=== PATIENT | female | born 2000 | race Caucasian/White ===

== ENCOUNTER → 2020-03-29 09:56 | Outpatient (BNVA) | payer MEDICAID, SELFPAY | PROVIDERS: Visit Provider Advanced Practice Midwife | DX: Z76.89 Persons encountering health services in other specified circumstances (principal) ==

== ENCOUNTER 2020-04-13 10:24 | Outpatient (REF) | payer MEDICAID, SELFPAY ==
--- NOTE | 2020-04-13 10:29 | US_ITS ---
EXAMINATION: OBSTETRICAL ULTRASOUND, FIRST TRIMESTER HISTORY: 20-year-old at 12.3 weeks of gestation NT screening COMPARISON: 03/10/2020 TECHNIQUE: Real time transabdominal imaging with color and M-mode Doppler. FINDINGS: A single, live IUP CRL of 65.4 mm c/w 13.0wks is noted. Heart Rate: 150 beats per minute. Normal yolk sac seen. NT was 1.4.mm. NB Present The embryo appears sonographically wnl for this GA. Right ovary is within normal limits. Left was not visualized. GESTATIONAL AGE: 1. Established GA: 12.3 wks 2. GA from AUA: 13.0 wks ESTIMATED DATE OF DELIVERY: 1. Established WILLY: 10/23/2020 2. WILLY from [facility]: 10/19/2020 US/US OB 1T nuc measure IMPRESSION: 1. A single live IUP 2. Size equals dates 3. NT of 1.4 mm MFM Consultation: I reviewed the ultrasound findings along with significance of NT measurement. The NT of less than 3mm is generally reassuring. However, the sensitivity for T21 detection is only 60%. I reviewed the availability of serum aneuploidy screening which includes cell-free DNA and placental protein based tests. I discussed the sensitivity, false-positive rate, and other limitations associated with each test. I also reviewed the availability of invasive diagnostic tests that are associated small but definite risk of miscarriage. We also reviewed the differences between screening tests and diagnostic tests. After our discussion, she opted for the First trimester screening that is based on cell-free DNA or non-invasive testing (NIPT). The result will be faxed to your office in approximately 7 days. A follow up at 18 weeks for survey has been scheduled. Thank you very much for this referral. Majority of this visit was spent reviewing her care and counselling her in face to face time: Time spent 20 min.
== END 2020-04-13 10:25 | disposition home or self-care (01) ==
LOC: HO.US 10:24
PROVIDERS: Visit Provider Advanced Practice Midwife
DX: Z36.82 Encounter for antenatal screening for nuchal translucency (principal); Z34.90 Encounter for supervision of normal pregnancy, unspecified, unspecified trimester
CPT/HCPCS: 76813

== ENCOUNTER 2020-04-26 13:10 | Outpatient (REF) | payer MEDICAID, SELFPAY ==
[2020-04-26 14:58] LABS: MANUAL DIFF FLAG NO
[2020-04-26 15:02] LABS: Basophils Percent Auto 0.3 % (0-2); Eosinophils Percent Auto 0.3 % (0-4); Hematocrit 33.4 % (37-47); Hemoglobin 11.2 g/dl (12.0-16.0); Imm Gran Abs Auto 0.04 X10*3/uL (0.00-0.03); Imm Gran Pct Auto 0.5 % (0.0-0.4); Lymphocytes Absolute Auto 1.6 X10*3/uL (1.2-4.9); Lymphocytes Percent Auto 20.5 % (20-40); Mean Corpuscular HGB Conc 33.5 g/dl (31.0-35.0); Mean Corpuscular Hemoglobin 27.1 pg (27.0-33.0); Mean Corpuscular Volume 80.9 fL (80-98); Mean Platelet Volume 11.5 fL (9.4-12.3); Monocytes Absolute Auto 0.4 X10*3/uL (0.1-1.2); Neutrophils Absolute Auto 5.7 X10*3/uL (2.0-8.3); Neutrophils Percent Auto 73.4 % (45-73); Platelet Count 213 X10*3/uL (160-400); Red Blood Count 4.13 X10*6/uL (4.20-5.50); Red Cell Distribution Width 13.3 % (11.0-16.0); White Blood Count 7.8 X10*3/uL (4.8-10.8)
[2020-04-26 15:48] LABS: Thyroid Stimulating Hormone 0.77 uIU/mL (0.32-4.0)
[2020-04-26 15:50] LABS: Amphetamine Screen Urine Not Detected (Not Detect); Barbiturates, Urine Not Detected (Not Detect); Benzodiazepines Screen Urine Not Detected (Not Detect); Cannabinoid Screen Urine POSITIVE (Not Detect); Cocaine Screen Urine Not Detected (Not Detect); Opiate Screen Urine Not Detected (Not Detect); Phencyclidine Screen Urine Not Detected (Not Detect)
[2020-04-27 07:17] LABS: Syphilis Screen Nonreactive (Nonreactive)
[2020-04-27 08:09] LABS: HBsAGNum1 0.26 S/CO (0.00-0.99); Hepatitis B Surface Antigen Negative (Negative); ~HepC Num1 0.06 S/CO (0.00-0.79); ~Hepatitis C Antibody Nonreactive (Nonreactive)
[2020-04-27 08:13] LABS: HIV AB/AG Nonreactive (Nonreactive); HIV Num 1 0.11 S/CO (0.00-0.99)
[2020-04-27 09:42] LABS: Rubella IgG Antibody 1.22 index
[2020-04-27 10:28] LABS: CT PCR DETECTED (Not Detect.); NG PCR NOT DETECTED (Not Detect.)
[2020-04-27 13:03] LABS: BV Int Neg Control Negative (Negative); BV Int Pos Control Positive (Positive)
== END 2020-04-26 13:11 | disposition home or self-care (01) ==
LOC: HO.LAB 13:10
PROVIDERS: Advanced Practice Midwife; Visit Provider Advanced Practice Midwife
DX: Z34.90 Encounter for supervision of normal pregnancy, unspecified, unspecified trimester (principal)
CPT/HCPCS: 36415; 80307; 84443; 85025; 86762; 86780; 86787; 86803; 86850; 86886; 86900; 86901; 87086; 87340; 87389; 87480; 87491; 87510; 87591; 87660; 88142; 90686

== ENCOUNTER → 2020-05-17 13:16 | Outpatient (BNVA) | payer MEDICAID, SELFPAY | PROVIDERS: Visit Provider Advanced Practice Midwife | DX: Z76.89 Persons encountering health services in other specified circumstances (principal) ==

== ENCOUNTER 2020-05-25 10:04 | Outpatient (REF) | payer MEDICAID, SELFPAY ==
--- NOTE | 2020-05-25 10:11 | US_ITS ---
EXAMINATION: US OBSTETRICAL CLINICAL INFORMATION: 20-year-old at 18.3 weeks of gestation Suspected anomaly COMPARISON: 04/13/2020 TECHNIQUE: Real-time transabdominal ultrasound was performed using C1-5 megahertz transducer. FINDINGS: A single, active, fetus is seen in vertex presentation. The placenta is posterior without previa, and the amniotic fluid volume is wnl. MEASUREMENTS: 1. Biparietal Diameter: 4.4 cm; 19.2 wks 2. Occipital Frontal Diameter: 5.97 cm 3. Head Circumference: 16.5 cm; 19.2 wks 4. Abdominal Circumference: 13.5 cm; 19.0 wks 5. Femur Length: 2.74 cm; 18.3 wks 6. Humerus Length: 2.8 cm; 19.0 wks 7. Tibia Length: 2.4 cm; 18.5 wks 8. Ulna Length: 2.5 cm; 19.1 wks 9. Lateral ventricle: 0.6 cm 10. Cerebellum: 1.93 cm; 19.6 wks 11. Cisterna Magna: 0.28 cm 12. Nuchal Fold: 4.2 mm 13. Heart Rate: 149 beats per minute Rt ovary: Normal adnexa Lt ovary: Normal adnexa Cervical length 3.5 cm on T/A. GESTATIONAL AGE: 1. Established GA: 18.3 wks 2. GA from [facility]: 19.0 wks ESTIMATED DATE OF DELIVERY: 1. Established WILLY: 10/23/2020 2. WILLY from [facility]: 10/19/2020 ANATOMY: Suboptimal views of the upper lip, RVOT and ductal arch due to position. The visualized anatomy includes but not limited to: 1. Cranium: Normal 2. Intracranial anatomy: cavum septum pellucidi, lateral ventricles, choroid plexus, cerebellum, posterior fossa, third and fourth ventricles. 3. face: orbits, palate, profile, nasal bone 4. Heart: four-chamber view of the heart, ventricular septum, foramen ovale, pulmonary vein, left outflow tracts, three-vessel view, 3 vessel trachea view, aortic arche, situs.. 5. Diaphragm: Normal 6. Abdominal wall: Normal 7. Cord Insertion: Normal 8. Spine: Cervical, thoracic, lumbar, sacral. 9. Stomach: Normal size and shape 10. Right Kidney: Normal 11. Left Kidney: Normal 12. 3 vessel cord: Normal 13. Upper extremity: Open hands, fifth digit. 14. Lower extremity: Tibia, fibula, bilateral feet. 15. Bladder: Normal 16. Genitalia: Male, patient aware US/US OB /maternal detail IMPRESSION: 1. Single, living, intrauterine with appropriate biometry. 2. The survey was suboptimal due to position as noted. The views of the upper lip, RVOT and ductal arch were suboptimal. No abnormalities were seen in visualized anatomy. DISCUSSION: I reviewed today's ultrasound findings. We discussed the limitations of ultrasound in diagnosing aneuploidy and other congenital abnormalities. I reviewed the differences between screening test and diagnostic test. Amniocentesis was discussed and declined. She was informed that the baseline incidence of congenital abnormalities is approximately 3-5%. Not all these conditions are diagnosable in utero. RECOMMENDATIONS: 1. A follow-up has been scheduled in one week. Thank you for allowing me to participate in her care. Visiting time 25 minutes. Majority of this visit was spent reviewing and discussing her care.
[2020-05-25 13:28] LABS: Alanine Aminotransferase 31 U/L (0-31); Aspartate Amino Transferase 22 U/L (5-31)
== END 2020-05-25 10:05 | disposition home or self-care (01) ==
LOC: HO.US 10:04
PROVIDERS: PCP Internal Medicine; Visit Provider Advanced Practice Midwife
DX: O35.9XX0 Maternal care for (suspected) fetal abnormality and damage, unspecified, not applicable or unspecified (principal)
CPT/HCPCS: 76811; 84450; 84460; 86850; 86886; 86901

== ENCOUNTER 2020-06-01 14:00 | Outpatient (REF) | payer MEDICAID, SELFPAY ==
--- NOTE | 2020-06-01 14:05 | US_ITS ---
EXAMINATION: OBSTETRICAL ULTRASOUND, Follow up HISTORY: 20-year-old at 19.3 weeks of gestation Follow-up anatomy COMPARISON: 05/25/2020 TECHNIQUE: Real time transabdominal imaging with color and M-mode Doppler. PRESENTATION: Breech PLACENTA LOCATION: Posterior without previa AMNIOTIC FLUID: Normal MEASUREMENTS: Biometry was not repeated from last week. 1. Heart Rate: 140 beats per minute Normal views of lateral cerebral ventricle, profile, nose/lips, 4ch view, LVOT, RVOT, and the ductal arch. US/US OB follow up IMPRESSION: 1. Single active fetus 2. Previously limited views of the anatomy were seen as listed above. No abnormalities were noted in visualized anatomy. 3. This completes the survey. I reviewed the limitations of ultrasound in diagnosing aneuploidy and other congenital abnormalities. Amniocentesis was again reviewed and she declined. She was informed that the baseline instance of congenital abnormalities and defects in the general population is approximately 3-5%. Not all these conditions are diagnosable in utero. RECOMMENDATIONS: 1. f/u PRN Thank you very much for this referral.
== END 2020-06-01 14:01 | disposition home or self-care (01) ==
LOC: HO.US 14:00
PROVIDERS: PCP Internal Medicine; Visit Provider Advanced Practice Midwife
DX: O35.9XX0 Maternal care for (suspected) fetal abnormality and damage, unspecified, not applicable or unspecified (principal); Z3A.19 19 weeks gestation of pregnancy
CPT/HCPCS: 76816

== ENCOUNTER 2020-06-14 11:27 | Outpatient (REF) | payer MEDICAID, SELFPAY ==
[2020-06-15 12:55] LABS: BV Int Neg Control Negative (Negative); BV Int Pos Control Positive (Positive)
[2020-06-17 08:12] LABS: C. trachomatis RNA TMA NOT DETECTED (NOT DETECTED); N. gonorrhoeae RNA TMA NOT DETECTED (NOT DETECTED)
== END 2020-06-14 11:28 | disposition home or self-care (01) ==
LOC: HO.LAB 11:27
PROVIDERS: Visit Provider Advanced Practice Midwife
DX: Z34.92 Encounter for supervision of normal pregnancy, unspecified, second trimester (principal)
CPT/HCPCS: 81003; 87480; 87491; 87510; 87591; 87660; 99212

== ENCOUNTER → 2020-07-03 14:02 | Outpatient (BNVA) | payer MEDICAID, SELFPAY | PROVIDERS: PCP Internal Medicine; Visit Provider Surgery | DX: K42.9 Umbilical hernia without obstruction or gangrene (principal) | CPT/HCPCS: 99202 ==

== ENCOUNTER → 2020-07-12 14:36 | Outpatient (BNVA) | payer MEDICAID, SELFPAY | PROVIDERS: PCP Internal Medicine; Visit Provider Advanced Practice Midwife | DX: R10.33 Periumbilical pain (principal); Z34.92 Encounter for supervision of normal pregnancy, unspecified, second trimester | CPT/HCPCS: 81003; 99212 ==

== ENCOUNTER 2020-07-13 13:26 | Outpatient (REF) | payer MEDICAID, SELFPAY ==
--- NOTE | 2020-07-13 13:30 | US_ITS ---
EXAMINATION: OBSTETRICAL ULTRASOUND, Follow up HISTORY: 20-year-old at 25.3 weeks of gestation Size date discrepancy COMPARISON: 06/01/2020 TECHNIQUE: Real time transabdominal imaging with color and M-mode Doppler. PRESENTATION: Vertex PLACENTA LOCATION: Posterior without previa AMNIOTIC FLUID: Normal MEASUREMENTS: 1. Biparietal Diameter: 6.6 cm; 26.5 wks 2. Head Circumference: 24.8 cm; 27.0 wks 3. Abdominal Circumference: 20.8 cm; 25.3 wks 4. Femur Length: 4.27 cm; 25.5 wks 5. Heart Rate: 155 beats per minute WEIGHT: EFW: 836 grams (1 lbs 13 oz) -- 49 %. GESTATIONAL AGE: 1. Established GA: 25.3 wks 2. GA from AUA: 26.2 wks ESTIMATED DATE OF DELIVERY: 1. Established WILLY: 10/23/2020 2. WILLY from [facility]: 10/17/2020 US/US OB follow up IMPRESSION: A single live fetus is in vertex presentation Size equals dates Normal amniotic fluid volume I reviewed the limitations of ultrasound and estimating weights. The EFW is not suggestive of large for gestational age. The fetus is active. Further ultrasound has been scheduled. Thank you very much for this referral.
--- NOTE | 2020-07-13 14:05 | US_ITS ---
EXAMINATION: US ABDOMEN LIMITED CLINICAL INFORMATION: Periumbilical pain.. COMPARISON: None TECHNIQUE: Real-time imaging of the right upper quadrant abdominal viscera. FINDINGS: There is a small periumbilical abdominal wall hernia containing intraperitoneal fat. The hernia neck measures approximately 1.0 cm. US/US abdomen limited IMPRESSION: Small periumbilical abdominal wall hernia approximate 1.0 cm wide containing intraperitoneal fat.
== END 2020-07-13 13:27 | disposition home or self-care (01) ==
LOC: HO.US 13:26
PROVIDERS: Visit Provider Advanced Practice Midwife
DX: R10.33 Periumbilical pain (principal)
CPT/HCPCS: 76705; 76816

== ENCOUNTER 2020-08-02 13:37 | Outpatient (REF) | payer MEDICAID, SELFPAY ==
[2020-08-05 11:41] LABS: C. trachomatis RNA TMA NOT DETECTED (NOT DETECTED); N. gonorrhoeae RNA TMA NOT DETECTED (NOT DETECTED)
== END 2020-08-02 13:38 | disposition home or self-care (01) ==
LOC: HO.LAB 13:37
PROVIDERS: PCP Internal Medicine; Visit Provider Advanced Practice Midwife
DX: O98.813 Other maternal infectious and parasitic diseases complicating pregnancy, third trimester (principal); A74.9 Chlamydial infection, unspecified; O99.323 Drug use complicating pregnancy, third trimester; F12.90 Cannabis use, unspecified, uncomplicated; O99.613 Diseases of the digestive system complicating pregnancy, third trimester; K46.9 Unspecified abdominal hernia without obstruction or gangrene; Z3A.28 28 weeks gestation of pregnancy
CPT/HCPCS: 36415; 81003; 87491; 87591; 99212

== ENCOUNTER 2020-08-16 10:40 | Outpatient (REF) | payer MEDICAID, SELFPAY ==
[2020-08-16 14:10] LABS: Hematocrit 35.8 % (37-47); Hemoglobin 11.5 g/dl (12.0-16.0); Mean Corpuscular HGB Conc 32.1 g/dl (31.0-35.0); Mean Corpuscular Hemoglobin 26.9 pg (27.0-33.0); Mean Corpuscular Volume 83.6 fL (80-98); Mean Platelet Volume 11.5 fL (9.4-12.3); Platelet Count 243 X10*3/uL (160-400); Red Blood Count 4.28 X10*6/uL (4.20-5.50); Red Cell Distribution Width 13.6 % (11.0-16.0); White Blood Count 8.7 X10*3/uL (4.8-10.8)
[2020-08-16 14:19] LABS: Amphetamine Screen Urine Not Detected (Not Detect); Barbiturates, Urine Not Detected (Not Detect); Benzodiazepines Screen Urine Not Detected (Not Detect); Cannabinoid Screen Urine Not Detected (Not Detect); Cocaine Screen Urine Not Detected (Not Detect); Opiate Screen Urine Not Detected (Not Detect); Phencyclidine Screen Urine Not Detected (Not Detect)
[2020-08-16 14:30] LABS: Glucose 1 Hour 78 mg/dL
[2020-08-17 08:08] LABS: HBsAGNum1 0.16 S/CO (0.00-0.99); Hepatitis B Surface Antigen Negative (Negative); ~HepC Num1 0.08 S/CO (0.00-0.79); ~Hepatitis C Antibody Nonreactive (Nonreactive)
[2020-08-17 08:25] LABS: Syphilis Screen Nonreactive (Nonreactive)
[2020-08-17 08:34] LABS: HIV AB/AG Nonreactive (Nonreactive); HIV Num 1 0.07 S/CO (0.00-0.99)
[2020-08-17 12:42] LABS: C. trachomatis RNA TMA NOT DETECTED (NOT DETECTED); N. gonorrhoeae RNA TMA NOT DETECTED (NOT DETECTED)
== END 2020-08-16 10:41 | disposition home or self-care (01) ==
LOC: HO.LAB 10:40
PROVIDERS: Advanced Practice Midwife; Visit Provider Advanced Practice Midwife
DX: O98.813 Other maternal infectious and parasitic diseases complicating pregnancy, third trimester (principal); A74.9 Chlamydial infection, unspecified; O99.323 Drug use complicating pregnancy, third trimester; F12.90 Cannabis use, unspecified, uncomplicated; O99.613 Diseases of the digestive system complicating pregnancy, third trimester; K46.9 Unspecified abdominal hernia without obstruction or gangrene; Z3A.30 30 weeks gestation of pregnancy
CPT/HCPCS: 36415; 80307; 81003; 82951; 85027; 86762; 86780; 86787; 86803; 86850; 86900; 86901; 87086; 87340; 87389; 87491; 87591; 99212

== ENCOUNTER → 2020-08-30 10:27 | Outpatient (BNVA) | payer MEDICAID, SELFPAY | PROVIDERS: Visit Provider Advanced Practice Midwife | DX: Z34.93 Encounter for supervision of normal pregnancy, unspecified, third trimester (principal); Z3A.32 32 weeks gestation of pregnancy | CPT/HCPCS: 81003; 90471; 90715; 99212 ==

== ENCOUNTER 2020-09-14 10:46 | Outpatient (REF) | payer MEDICAID, SELFPAY ==
--- NOTE | ~2020-09-14 | US_ITS ---
EXAMINATION: OBSTETRICAL ULTRASOUND, Follow up HISTORY: 20-year-old at the 34.3 weeks of gestation Size date discrepancy COMPARISON: 07/13/2020 TECHNIQUE: Real time transabdominal imaging with color and M-mode Doppler. PRESENTATION: Vertex PLACENTA LOCATION: Posterior without previa AMNIOTIC FLUID: SURINDER 7.7 cm. MVP 4.5 cm MEASUREMENTS: 1. Biparietal Diameter: 8.7 cm; 35.0 wks 2. Head Circumference: 31.7 cm; 35.5 wks 3. Abdominal Circumference: 27.6 cm; 31.5 wks 4. Femur Length: 6.4 cm; 32.6 wks 5. Heart Rate: 133 beats per minute WEIGHT: EFW: 2031 grams (4 lbs 8 oz) -- 8 %. BIOPHYSICAL PROFILE: Motion: 2 Tone: 2 Breathin Amniotic Fluid: 2 Total score: 8/8 Doppler: UA s/d 3.1 GESTATIONAL AGE: 1. Established GA: 34.3 wks 2. GA from AUA: 33.6 wks ESTIMATED DATE OF DELIVERY: 1. Established WILLY: 10/23/2020 2. WILLY from [facility]: 10/27/2020 US/US OB velocimetry umbilcal art IMPRESSION: 1. A single active fetus is in vertex presentation. 2. Size less than dates, EFW corresponds to 8th percentile. 3. BPP 8 out of 8 with normal amniotic fluid volume 4. Umbilical Doppler showed SD ratio of 3.1 I reviewed the limitations of ultrasound in estimating weight. The majority of the fetuses whose EFW falls below 10th percentile are appropriately grown but constitutionally small fetuses. Approximately 30-40% of these fetuses may be experiencing placental insufficiency and are not growing to their full genetic potential. Often it is difficult to distinguish the two in utero. The testing parameters are reassuring today. I recommended weekly biophysical profile and Doppler evaluation with a repeat interval growth in 2 weeks. In addition we should begin weekly NST. Thank you very much for this referral. Total time 30 minutes. The time spent was devoted to counseling the patient about the disease and diagnosis, coordinating care including reviewing her records, pertinent lab data and studies, as well as discussing diagnostic evaluation and workup, plan therapeutic interventions and future disposition of care. This includes any additional research needed to obtain further information in formulating the plan of care of this patient. This note was generated with a voice recognition program. Please excuse any errors which may have been overlooked during my review of this note. Sometimes these errors may affect the content or meaning of a given sentence.
== END 2020-09-14 10:47 | disposition home or self-care (01) ==
LOC: HO.US 10:46
PROVIDERS: Visit Provider Advanced Practice Midwife
DX: O09.299 Supervision of pregnancy with other poor reproductive or obstetric history, unspecified trimester (principal)
CPT/HCPCS: 76816; 76820

== ENCOUNTER 2020-09-21 14:22 | Outpatient (REF) | payer MEDICAID, SELFPAY ==
--- NOTE | ~2020-09-21 | US_ITS ---
EXAMINATION: US OBSTETRICAL (BIOPHYSICAL PROFILE) CLINICAL INFORMATION: 20-year-old at 35.3 weeks of gestation Size less than dates COMPARISON: 09/14/2020 TECHNIQUE: Biophysical profile is performed over 30 minutes with assessment of breathing, gross body movement, tone, and qualitative amniotic fluid volume. FINDINGS: POSITION: Cephalic PLACENTA: Posterior without previa AMNIOTIC FLUID INDEX: 11.5 cm CARDIAC ACTIVITY: 163 beats per minute BIOPHYSICAL PROFILE: Motion: 2 Tone: 2 Breathin Amniotic Fluid: 2 The total biophysical score is 8/8 Umbilical artery Doppler showed normal SD ratio of 2.6. US/US OB biophysical profile IMPRESSION: 1. Single intrauterine gestation in vertex position. 2. Reassuring BPP and SURINDER 3. Normal SD ratio and umbilical artery Thank you for allowing me to participate in her care. She has a follow-up in one week for repeat growth and the testing. This note was generated with a voice recognition program. Please excuse any errors which may have been overlooked during my review of this note. Sometimes these errors may affect the content or meaning of a given sentence.
--- NOTE | ~2020-09-21 | US_ITS ---
EXAMINATION: US OBSTETRICAL (BIOPHYSICAL PROFILE) CLINICAL INFORMATION: 20-year-old at 35.3 weeks of gestation Size less than dates COMPARISON: 09/14/2020 TECHNIQUE: Biophysical profile is performed over 30 minutes with assessment of breathing, gross body movement, tone, and qualitative amniotic fluid volume. FINDINGS: POSITION: Cephalic PLACENTA: Posterior without previa AMNIOTIC FLUID INDEX: 11.5 cm CARDIAC ACTIVITY: 163 beats per minute BIOPHYSICAL PROFILE: Motion: 2 Tone: 2 Breathin Amniotic Fluid: 2 The total biophysical score is 8/8 Umbilical artery Doppler showed normal SD ratio of 2.6. US/US OB velocimetry umbilical ar IMPRESSION: 1. Single intrauterine gestation in vertex position. 2. Reassuring BPP and SURINDER 3. Normal SD ratio and umbilical artery Thank you for allowing me to participate in her care. She has a follow-up in one week for repeat growth and the testing. This note was generated with a voice recognition program. Please excuse any errors which may have been overlooked during my review of this note. Sometimes these errors may affect the content or meaning of a given sentence.
== END 2020-09-21 14:23 | disposition home or self-care (01) ==
LOC: HO.US 14:22
PROVIDERS: Visit Provider Advanced Practice Midwife
DX: O26.843 Uterine size-date discrepancy, third trimester (principal); O35.9XX0 Maternal care for (suspected) fetal abnormality and damage, unspecified, not applicable or unspecified; Z3A.35 35 weeks gestation of pregnancy
CPT/HCPCS: 76819; 76820

== ENCOUNTER → 2020-09-24 14:10 | Outpatient (BNVA) | payer MEDICAID, SELFPAY | PROVIDERS: Visit Provider Advanced Practice Midwife | DX: O36.5990 Maternal care for other known or suspected poor fetal growth, unspecified trimester, not applicable or unspecified (principal); Z3A.35 35 weeks gestation of pregnancy | CPT/HCPCS: 59025; 81003; 99212 ==

== ENCOUNTER 2020-09-28 10:46 | Outpatient (REF) | payer MEDICAID, SELFPAY ==
--- NOTE | ~2020-09-28 | US_ITS ---
EXAMINATION: OBSTETRICAL ULTRASOUND, Follow up HISTORY: 20-year-old at the 36.3 weeks of gestation FGR Size date discrepancy COMPARISON: 09/21/2020 TECHNIQUE: Real time transabdominal imaging with color and M-mode Doppler. PRESENTATION: Vertex PLACENTA LOCATION: Posterior without previa AMNIOTIC FLUID: SURINDER 9.4 cm MEASUREMENTS: 1. Biparietal Diameter: 9.0 cm; 36.2 wks 2. Head Circumference: 31.9 cm; 36.0 wks 3. Abdominal Circumference: 30.2 cm; 34.2 wks 4. Femur Length: 6.6 cm; 34.2 wks 5. Heart Rate: 139 beats per minute WEIGHT: EFW: 2462 grams (5 lbs 7 oz) -- 12 %. BIOPHYSICAL PROFILE: Motion: 2 Tone: 2 Breathin Amniotic Fluid: 2 Total score: 8/8 UA Doppler: SD 2.6, stable and within normal limits GESTATIONAL AGE: 1. Established GA: 36.3 wks 2. GA from [facility]: 35.2 wks ESTIMATED DATE OF DELIVERY: 1. Established WILLY: 10/23/2020 2. WILLY from [facility]: 10/31/2020 US/US OB velocimetry umbilical ar IMPRESSION: 1. A single active fetus is in vertex presentation 2. EFW corresponds to 12th percentile. Compared to prior exam, this is an appropriate interval growth. 3. Reassuring testing with normal amniotic fluid index and SD ratio through the umbilical artery. I reviewed today's ultrasound findings and the limitations and estimating weight. Gave her reassurance regarding the interval growth. We also discussed the differences between constitutionally small fetuses and those experiencing placental insufficiency. I recommend continuing testing 2 times per week and repeat the interval growth in 2 weeks. As long as there continues to be an appropriate interval growth and reassuring testing parameters, she can be managed expectantly until 39 weeks of gestation. Thank you very much for this referral. Total time 30 minutes. The time spent was devoted to counseling the patient about the disease and diagnosis, coordinating care including reviewing her records, pertinent lab data and studies, as well as discussing diagnostic evaluation and workup, plan therapeutic interventions and future disposition of care. This includes any additional research needed to obtain further information in formulating the plan of care of this patient. This note was generated with a voice recognition program. Please excuse any errors which may have been overlooked during my review of this note. Sometimes these errors may affect the content or meaning of a given sentence.
== END 2020-09-28 10:47 | disposition home or self-care (01) ==
LOC: HO.US 10:46
PROVIDERS: Visit Provider Advanced Practice Midwife
DX: O36.5990 Maternal care for other known or suspected poor fetal growth, unspecified trimester, not applicable or unspecified (principal); O98.813 Other maternal infectious and parasitic diseases complicating pregnancy, third trimester; B37.3 Candidiasis of vulva and vagina; Z68.36 Body mass index [BMI] 36.0-36.9, adult
CPT/HCPCS: 59025; 76819; 76820; 99212

== ENCOUNTER 2020-09-28 13:58 | Outpatient (REF) | payer MEDICAID, SELFPAY ==
[2020-09-29 12:11] LABS: BV Int Neg Control Negative (Negative); BV Int Pos Control Positive (Positive)
== END 2020-09-28 13:59 | disposition home or self-care (01) ==
LOC: HO.LAB 13:58
PROVIDERS: Visit Provider Obstetrics & Gynecology
DX: N89.8 Other specified noninflammatory disorders of vagina (principal)
CPT/HCPCS: 87081; 87480; 87510; 87660

== ENCOUNTER → 2020-10-02 14:02 | Outpatient (BNVA) | payer MEDICAID, SELFPAY | PROVIDERS: Visit Provider Obstetrics & Gynecology | DX: O36.5990 Maternal care for other known or suspected poor fetal growth, unspecified trimester, not applicable or unspecified (principal); Z3A.37 37 weeks gestation of pregnancy | CPT/HCPCS: 59025; 81003; 99212 ==

== ENCOUNTER 2020-10-02 15:25 | Outpatient (REF) | payer MEDICAID, SELFPAY ==
--- NOTE | ~2020-10-02 | US_ITS ---
EXAMINATION: US OBSTETRICAL (BIOPHYSICAL PROFILE) CLINICAL INFORMATION: Nonreactive stress test in office COMPARISON: Ultrasound OB 09/28/2020 TECHNIQUE: Ultrasound of the pelvis is performed. Biophysical profile is performed over 30 minutes with assessment of breathing, gross body movement, tone, and qualitative amniotic fluid volume. Each matrix is scored 0 or 2, depending if the metric is present. Maximum total score possible is 8. Examination is not intended to assess for anomalies. FINDINGS: POSITION: Cephalic PLACENTA: Posterior AMNIOTIC FLUID INDEX: 9.0 cm CARDIAC ACTIVITY: 143 beats per minute BIOPHYSICAL PROFILE: Motion: 2 Tone: 2 Breathin Amniotic Fluid: 2 Total score: 6/8 US/US OB biophysical profile IMPRESSION: 1. Single intrauterine gestation in cephalic position with posterior placenta. 2. Total biophysical score is 6/8 (scale 0-8). 3. Amniotic fluid index 9.0 cm. 4. cardiac activity 143 beats per minute. Preliminary results were called to Valerie Perez at 4:52 pm on 10/02/2020
== END 2020-10-02 15:26 | disposition home or self-care (01) ==
LOC: HO.US 15:25
PROVIDERS: Visit Provider Obstetrics & Gynecology
DX: O36.5990 Maternal care for other known or suspected poor fetal growth, unspecified trimester, not applicable or unspecified (principal)
CPT/HCPCS: 76819

== ENCOUNTER 2020-10-09 10:13 | Outpatient (REF) | payer MEDICAID, SELFPAY ==
--- NOTE | ~2020-10-09 | US_ITS ---
EXAMINATION: US OBSTETRICAL (BIOPHYSICAL PROFILE) CLINICAL INFORMATION: Maternal 4 suspected abnormality and damage, unspecified COMPARISON: Previous exam most recent 10/02/2020 TECHNIQUE: Ultrasound of the pelvis is performed. Biophysical profile is performed over 30 minutes with assessment of breathing, gross body movement, tone, and qualitative amniotic fluid volume. Each matrix is scored 0 or 2, depending if the metric is present. Maximum total score possible is 8. Examination is not intended to assess for anomalies. FINDINGS: POSITION: Cephalic PLACENTA: Posterior AMNIOTIC FLUID INDEX: 9.7 centimeters. This is low normal. 5th percentile for patient's gestational age is 7.3 cm. CARDIAC ACTIVITY: 127 beats per minute BIOPHYSICAL PROFILE: Motion: 2 Tone: 2 Breathin Amniotic Fluid: 2 Total score: 8 US/US OB biophysical profile IMPRESSION: 1. Single intrauterine gestation in cephalic position with posterior placenta. 2. Total biophysical score is 8 (scale 0-8). 3. Amniotic fluid index 9.7 cm. 4. cardiac activity 127 beats per minute.
== END 2020-10-09 10:14 | disposition home or self-care (01) ==
LOC: HO.US 10:13
PROVIDERS: Visit Provider Advanced Practice Midwife
DX: O36.5930 Maternal care for other known or suspected poor fetal growth, third trimester, not applicable or unspecified (principal); Z3A.38 38 weeks gestation of pregnancy
CPT/HCPCS: 76819; 99212

== ENCOUNTER 2020-10-12 14:08 | Outpatient (REF) | payer MEDICAID, SELFPAY ==
--- NOTE | ~2020-10-12 | US_ITS ---
EXAMINATION: OBSTETRICAL ULTRASOUND, Follow up HISTORY: 20-year-old at 38.3 weeks of gestation Small for gestational age COMPARISON: 10/09/2020 TECHNIQUE: Real time transabdominal imaging with color and M-mode Doppler. PRESENTATION: Vertex PLACENTA LOCATION: Posterior without previa AMNIOTIC FLUID: Within normal limits, DVP 2.4 cm MEASUREMENTS: 1. Biparietal Diameter: 8.9 cm; 36.0 wks 2. Head Circumference: 32.2 cm; 36.3 wks 3. Abdominal Circumference: 30.3 cm; 34.2 wks 4. Femur Length: 6.7 cm; 34.4 wks 5. Heart Rate: 149 beats per minute WEIGHT: EFW: 2491 grams (5 lbs 8 oz) -- 3 %. BIOPHYSICAL PROFILE: Motion: 2 Tone: 2 Breathin Amniotic Fluid: 2 Total score: 8/8 Doppler UA SD: 3.0 GESTATIONAL AGE: 1. Established GA: 38.3 wks 2. GA from [facility]: 35.3 wks ESTIMATED DATE OF DELIVERY: 1. Established WILLY: 10/23/2020 2. WILLY from [facility]: 11/13/2020 US/US OB follow up IMPRESSION: 1. Single active fetus is in vertex presentation 2. Size less than dates, EFW corresponds to 3rd percentile. 3. Reassuring biophysical profile with normal amniotic fluid volume 4. Normal umbilical artery SD ratio I informed her that there has been less than expected interval growth. However compared to 3 weeks ago, the fetus has gained approximately 1 pound. The testing is reassuring. Agree with plan for induction next week. Advised her to monitor movements. Thank you very much for this referral. Total time 20 minutes. The time spent was devoted to counseling the patient about the disease and diagnosis, coordinating care including reviewing her records, pertinent lab data and studies, as well as discussing diagnostic evaluation and workup, plan therapeutic interventions and future disposition of care. This includes any additional research needed to obtain further information in formulating the plan of care of this patient. This note was generated with a voice recognition program. Please excuse any errors which may have been overlooked during my review of this note. Sometimes these errors may affect the content or meaning of a given sentence.
--- NOTE | ~2020-10-12 | US_ITS ---
EXAMINATION: OBSTETRICAL ULTRASOUND, Follow up HISTORY: 20-year-old at 38.3 weeks of gestation Small for gestational age COMPARISON: 10/09/2020 TECHNIQUE: Real time transabdominal imaging with color and M-mode Doppler. PRESENTATION: Vertex PLACENTA LOCATION: Posterior without previa AMNIOTIC FLUID: Within normal limits, DVP 2.4 cm MEASUREMENTS: 1. Biparietal Diameter: 8.9 cm; 36.0 wks 2. Head Circumference: 32.2 cm; 36.3 wks 3. Abdominal Circumference: 30.3 cm; 34.2 wks 4. Femur Length: 6.7 cm; 34.4 wks 5. Heart Rate: 149 beats per minute WEIGHT: EFW: 2491 grams (5 lbs 8 oz) -- 3 %. BIOPHYSICAL PROFILE: Motion: 2 Tone: 2 Breathin Amniotic Fluid: 2 Total score: 8/8 Doppler UA SD: 3.0 GESTATIONAL AGE: 1. Established GA: 38.3 wks 2. GA from A: 35.3 wks ESTIMATED DATE OF DELIVERY: 1. Established WILLY: 10/23/2020 2. WILLY from A: 11/13/2020 US/US OB velocimetry umbilical ar IMPRESSION: 1. Single active fetus is in vertex presentation 2. Size less than dates, EFW corresponds to 3rd percentile. 3. Reassuring biophysical profile with normal amniotic fluid volume 4. Normal umbilical artery SD ratio I informed her that there has been less than expected interval growth. However compared to 3 weeks ago, the fetus has gained approximately 1 pound. The testing is reassuring. Agree with plan for induction next week. Advised her to monitor movements. Thank you very much for this referral. Total time 20 minutes. The time spent was devoted to counseling the patient about the disease and diagnosis, coordinating care including reviewing her records, pertinent lab data and studies, as well as discussing diagnostic evaluation and workup, plan therapeutic interventions and future disposition of care. This includes any additional research needed to obtain further information in formulating the plan of care of this patient. This note was generated with a voice recognition program. Please excuse any errors which may have been overlooked during my review of this note. Sometimes these errors may affect the content or meaning of a given sentence.
== END 2020-10-12 14:09 | disposition home or self-care (01) ==
LOC: HO.US 14:08
PROVIDERS: Visit Provider Advanced Practice Midwife
DX: O36.5930 Maternal care for other known or suspected poor fetal growth, third trimester, not applicable or unspecified (principal); Z3A.38 38 weeks gestation of pregnancy
CPT/HCPCS: 76816; 76820

== ENCOUNTER 2020-12-06 13:36 | Outpatient (REF) | payer MEDICAID, SELFPAY ==
[2020-12-07 09:02] LABS: CT PCR NOT DETECTED (Not Detect.); NG PCR NOT DETECTED (Not Detect.)
== END 2020-12-06 13:37 | disposition home or self-care (01) ==
LOC: HO.LAB 13:36
PROVIDERS: Visit Provider Advanced Practice Midwife
DX: Z39.2 Encounter for routine postpartum follow-up (principal); F12.90 Cannabis use, unspecified, uncomplicated
CPT/HCPCS: 87491; 87591; 99212

== ENCOUNTER 2023-04-20 18:21 | Outpatient (REF) | payer MEDICAID, SELFPAY ==
[2023-04-23 13:33] LABS: C. trachomatis RNA TMA NOT DETECTED (NOT DETECTED); N. gonorrhoeae RNA TMA NOT DETECTED (NOT DETECTED); Trichomonas (NAAT) NOT DETECTED (NOT DETECTED)
== END 2023-04-20 18:22 | disposition home or self-care (01) ==
LOC: HO.HHCLNP 18:21
PROVIDERS: Visit Provider Advanced Practice Midwife
DX: Z12.4 Encounter for screening for malignant neoplasm of cervix (principal); Z11.3 Encounter for screening for infections with a predominantly sexual mode of transmission
CPT/HCPCS: 36415; 87491; 87591; 87661; 88142

== ENCOUNTER 2024-04-12 13:23 | Outpatient (REF) | payer MEDICAID, SELFPAY ==
[2024-04-12 16:34] LABS: MANUAL DIFF FLAG NO
[2024-04-12 16:50] LABS: Basophils Percent Auto 0.5 % (0-2); Eosinophils Percent Auto 0.5 % (0-4); Hematocrit 37.6 % (37.0-47.0); Hemoglobin 12.2 g/dl (12.0-16.0); Imm Gran Abs Auto 0.02 X10*3/uL (0.00-0.03); Imm Gran Pct Auto 0.3 % (0.0-0.4); Lymphocytes Absolute Auto 2.6 X10*3/uL (1.2-4.9); Lymphocytes Percent Auto 39.5 % (20-40); Mean Corpuscular HGB Conc 32.4 g/dl (31.0-35.0); Mean Corpuscular Hemoglobin 27.2 pg (27.0-33.0); Mean Corpuscular Volume 83.7 fL (80.0-98.0); Mean Platelet Volume 12.7 fL (9.4-12.3); Monocytes Absolute Auto 0.3 X10*3/uL (0.1-1.2); Monocytes Percent Auto 4.6 % (2-11); Neutrophils Absolute Auto 3.5 x10*3/uL (2.0-8.3); Neutrophils Percent Auto 54.6 % (45-73); Platelet Count 209 X10*3/uL (160-400); Red Blood Count 4.49 X10*6/uL (4.20-5.50); White Blood Count 6.5 X10*3/uL (4.8-10.8)
[2024-04-12 17:12] LABS: Cholesterol 122 mg/dL (<200); HDL Cholesterol 42 mg/dL (>40); LDL Cholesterol Calculated 70 mg/dL (<100); Triglycerides 50 mg/dL (<150)
[2024-04-12 17:23] LABS: Estimated Average Glucose 100 mg/dL; Hemoglobin A1c % 5.1 % (<6.0); Total Hemoglobin (HGBA1C) 3150.6102 umol/L
== END 2024-04-12 13:24 | disposition home or self-care (01) ==
LOC: HO.HHCL 13:23
PROVIDERS: Visit Provider Optometrist
DX: H35.61 Retinal hemorrhage, right eye (principal)
CPT/HCPCS: 36415; 80061; 83036; 85025

== ENCOUNTER 2024-12-07 09:47 | Outpatient (REF) | payer MEDICAID, SELFPAY ==
--- OUTSIDE RECORDS SUMMARY | 2024-12-07 11:11 | XMS_ITS | Encounter Summary ---
Author Organization [employer] Address [address] [place] [address] Care Team Providers Care Counseling Services Director Name Role Phone Vilma Woods MD Primary Care Provide r Encounter Details Date Type Department Care Team (Late st Contact Info) Description 04/18/2024 Telephone [facility] [address] [place] [address] Padmini Thacker, OD [address] [place] [address] Social History Tobacco Use Types Packs/Day Years Used Date Smoking Tobacco: Never Smokeless Tobacco: Never Alcohol Use Standard Drinks/Week Comments Never 0 (1 standard drink = 0.6 oz pur e alcohol) Comments No Sex and Gender Information Value Date Recorded Sex Assigned at Female 04/14/2022 10:15 AM EDT Legal Sex Female 10:15 AM EDT Gender Identity Female 04/14/2022 10:15 AM EDT Sexual Orientation Straight 04/14/2022 10 :15 AM EDT documented as of this encounter Miscellaneous Notes * Telephone Encounter - Kesha Larry - 04/18/2024 11:37 AM EST Spoke w/ Pt. that the testing came back good. No concerns at this time. Dr. Thacker let the PCP know about her exam findings. we will see her again on 07/05/24 @ 3:30pm. patient is ok with everything. documented in this encounter Plan of Treatment Not on file documented as of this encounter Visit Diagnoses Not on filedocumented in this encounter Care Teams Counseling Services Director Relationship Specialty Start Date End Date Vilma Woods MD [address] [place] [address] PCP - General Family Medicine 06/09/18 08/04/[address] 09/01/24 documented as of this encounter
[2024-12-07 11:16] LABS: Hematocrit 38.4 % (37.0-47.0); Hemoglobin 12.2 g/dl (12.0-16.0); Mean Corpuscular HGB Conc 31.8 g/dl (31.0-35.0); Mean Corpuscular Hemoglobin 26.2 pg (27.0-33.0); Mean Corpuscular Volume 82.6 fL (80.0-98.0); Mean Platelet Volume 12.8 fL (9.4-12.3); Platelet Count 201 X10*3/uL (160-400); Red Blood Count 4.65 X10*6/uL (4.20-5.50); Red Cell Distribution Width 13.3 % (11.0-16.0); White Blood Count 6.4 X10*3/uL (4.8-10.8)
[2024-12-07 11:27] LABS: Estimated Average Glucose 94 mg/dL; Hemoglobin A1c % 4.9 % (<6.0)
[2024-12-07 11:59] LABS: Alanine Aminotransferase 11 U/L (0-31); Albumin Level 4.4 g/dL (3.5-5.0); Alkaline Phosphatase 75 U/L (39-117); Anion Gap 11 (12-20); Aspartate Amino Transferase 15 U/L (5-31); Bilirubin Total 0.2 mg/dL (0.0-1.0); Blood Urea Nitrogen 16 mg/dL (9-16); Calcium 9.4 mg/dL (8.4-10.2); Carbon Dioxide 25 mmol/L (22-29); Chloride 109 mmol/L (96-108); Cholesterol 119 mg/dL (<200); Estimated Glomerular Filt Rate > 60; Ferritin 55 ng/mL (10-122); Glucose Random 86 mg/dL (60-115); HDL Cholesterol 34 mg/dL (>40); Iron 24 mcg/dL (30-160); LDL Cholesterol Calculated 72 mg/dL (<100); Percent Iron Saturation 10 % (15-50); Sodium 141 mmol/L (135-145); TSH reflex Free T4 0.94 uIU/mL (0.32-4.0); Total Iron Binding Capacity 229 mcg/dL (228-428); Total Protein 7.1 g/dL (6.5-8.0); Triglycerides 65 mg/dL (<150); Unsaturated Iron Binding 205 ug/dL
[2024-12-08 08:19] LABS: HBS Num1 34.67 mIU/mL (0-7.99); HBc Num1 0.05 S/CO (0.00-0.79); HBsAGNum1 0.61 S/CO (0.00-0.99); HIV AB/AG Nonreactive (Nonreactive); HIV Num 1 0.06 S/CO (0.00-0.99); Hepatitis B Core Antibody Nonreactive (Nonreactive); Hepatitis B Surface Antigen Negative (Negative); ~HepC Num1 0.09 S/CO (0.00-0.79); ~Hepatitis B Surface Antibody REACTIVE (Nonreactive); ~Hepatitis C Antibody Nonreactive (Nonreactive)
[2024-12-08 08:32] LABS: Syphilis Screen Nonreactive (Nonreactive)
== END 2024-12-07 09:48 | disposition home or self-care (01) ==
LOC: HO.HHCL 09:47
PROVIDERS: PCP Student in an Organized Health Care Education/Training Program; Visit Provider Student in an Organized Health Care Education/Training Program
DX: Z00.00 Encounter for general adult medical examination without abnormal findings (principal)
CPT/HCPCS: 36415; 80053; 80061; 82728; 83036; 83540; 84443; 85027; 86704; 86706; 86780; 86803; 87340; 87389

== ENCOUNTER 2024-12-09 13:41 | Outpatient (REF) | payer MEDICAID, SELFPAY ==
--- OUTSIDE RECORDS SUMMARY | 2024-12-09 14:08 | XMS_ITS | Encounter Summary ---
Author Organization [email or web address] Address [address] [place] [address] Care Team Providers Care Shoe Repair Cobbler Name Role Phone Vilma Woods MD Primary Care Provide r Encounter Details Date Type Department Care Team (Late st Contact Info) Description 04/18/2024 Telephone [facility] [address] [place] [address] Padmini Thacker, OD [address] [place] [address] Social History Tobacco Use Types Packs/Day Years [...] on filedocumented in this encounter Care Teams Shoe Repair Cobbler Relationship Specialty Start Date End Date Vilma Woods MD [address] [place] [address] PCP - General Family Medicine 06/09/18 08/04/24 Cristin Vilchis [employer] 09/01/24 documented as of this encounter
[2024-12-10 03:18] LABS: CT PCR Urine NOT DETECTED (Not Detect.); NG PCR Urine NOT DETECTED (Not Detect.)
== END 2024-12-09 13:42 | disposition home or self-care (01) ==
LOC: HO.HHCL 13:41
PROVIDERS: PCP Student in an Organized Health Care Education/Training Program; Visit Provider Student in an Organized Health Care Education/Training Program
DX: Z00.00 Encounter for general adult medical examination without abnormal findings (principal); Z11.3 Encounter for screening for infections with a predominantly sexual mode of transmission
CPT/HCPCS: 36415; 87491; 87591

== ENCOUNTER 2025-01-28 19:27 | Emergency (ER) | payer MEDICAID, SELFPAY ==
[2025-01-28 19:35] VITALS: BP 145/71; PULSE 93; RESP 14; TEMP 36.8; O2SAT 100; BMI 26.6
--- NOTE | 2025-01-28 19:36 | ED_ITS ---
HPI - Abdominal Pain General Chief Complaint: Abdominal Pain Stated Complaint: vomiting Time Seen by Provider: 01/28/25 21:54 Source: patient and old records reviewed Mode of arrival: ambulatory Limitations: no limitations History of Present Illness ED Provider: ERIKA HPI narrative: 24 yo female approx 6 weeks on vitamins notes her prior she had hyperemesis she presents with 2 days of n/v unable to keep much down. No abdominal pain, diarrhea, urinary symptoms, vaginal bleeding. She has no medications for nausea at home. She states she went through this with her son. MD elicited complaint: other (n/v) Onset (ago): day(s) (2) Location: none Severity: mild Quality: aching Radiation: none Migration to: no migration Exacerbating factors: vomiting Relieving factors: nothing Context: other Associated symptoms: nausea and vomiting Related Data Previous Rx's ?Medication ?Instructions ?Recorded pyridoxine (vitamin B6) 25 mg 25 mg PO BID 30 days #60 tabs 03/29/20 tablet azithromycin 500 mg tablet 1,000 mg (2 x 500 mg) PO DA BERTHA 1 04/27/20 day #2 tabs metronidazole 500 mg tablet 500 mg PO BID 7 days #14 t abs 04/27/20 (Flagyl) vitamins with calcium 1 tab PO DAILY #30 tabs 08/30/20 no.72-iron 29 mg-folic acid 1 mg tablet ( Plus) fluconazole 150 mg tablet 150 mg PO Q3D 2 doses #2 tab s 09/28/20 fluconazole 150 mg tablet 150 mg PO ONCE #1 tab metronidazole 500 mg tablet 500 mg PO BID #10 tabs doxylamine succinate 25 mg tablet 25 mg PO DAILY #30 t abs 01/29/25 (Unisom (doxylamine)) metoclopramide HCl 10 mg tablet 10 mg PO Q6H PRN nause a and 01/29/25 (Reglan) vomiting #30 tabs pyridoxine (vitamin B6) 25 mg 25 mg PO BID #60 tabs tablet Allergies Allergy/AdvReac Type Severity Reaction Status Date / Time clarithromycin (From BIAXIN) AdvReac Intermediate NAUSEA & Verified 01/28/25 19:37 VOMITING Review of Systems Review of Systems Constitutional : No Weight loss, No Fever, No Chills ENT/Mouth : No sore throat, No Rhinorrhea Eyes: No Swelling, No Redness Cardiovascular : No Chest Pain, No SOB, NoEdema Respiratory : No Cough, No Sputum, No Wheezing Gastrointestinal : Positive Nausea, Positive Vomiting, no Diarrhea, no abdominal Pain, No Hematochezia, No Melena Genitourinary : No Dysuria, No Urinary Frequency, No Hematuria, No Urgency Musculoskeletal : No joint pain, No Myalgias, No Joint Swelling Skin : No Skin Lesions, No rash Neuro : No Weakness, No Numbness, No Dizziness, No Headache All other systems reviewed and are negative. [facility] Past Medical History Attestation statement: The following information was validated with the patient. Source: old records reviewed Medical History History of marijuana use Umbilical cyst Umbilical pain History of asthma Family History Family History Mother No problems noted. Father No problems noted. Maternal Grandmother Hx of diabetes mellitus Maternal Grandfather No problems noted. Paternal Grandmother No problems noted. Paternal Grandfather No problems noted. Brother History of epilepsy Sister History of asthma Social History Social History Household Members: Family Alcohol intake: never Physical Exam ED Vital Signs: Vital Signs - 24 hr 01/28/25 19:35 Temperature 98.2 F Pulse Rate 93 Respiratory Rate 14 Blood Pressure 145/71 H Pulse Oximetry 100 Oxygen Delivery Method Room Air BMI result Body Mass Index 26.6 Appearance: Alert. Oriented X3. No acute distress. Eyes: Pupils equal, round and reactive to light. ENT: Pharynx mild dry MM Neck: Normal inspection. Neck supple. CVS: Normal heart rate and rhythm. Pulses normal. Respiratory: No respiratory distress. Breath sounds normal. Abdomen: Soft and nontender. Skin: Skin warm and dry. Normal skin color. Normal skin turgor. Extremities: No lower extremity edema. No calf ttp Neuro: Oriented X 3. No motor deficit. No sensory deficit. CN2-12 intact Course Course Course Narrative: Susan Leunglaura FIN[employer]STER 01/29 1942 This is a rapid medical exam. Deferred additional HPI, ROS, PE to primary provider. 24 yo female w/ history of DANIELLE who is 6 weeks here with vomiting x 2 days w/ diarrhea. lmp 7/5. Has not had an US to confirm IUP. Will obtain labs, UA, ur preg, viral testing VSS Medical Decision Making Medical Decision Making [facility] Narrative: 24 yo female 6 weeks now with n/v for 2 days she has no vaginal bleeding, urinary symptoms, her abdomen is benign on exam plan to give 2L of IVF, supportive medications and reassess. Differential Diagnosis Differential Diagnoses: The differential diagnosis associated with the presentation includes hyperemesis, dehydration Admission/Observation Consideration of admission/observation: Escalation of care including admission/observation considered tolerating PO feels better Lab Data [facility] Lab Attestation statement: I reviewed the patient's lab results. 01/28/25 20:19 01/28/25 20:19 Labs: Lab Results 01/28/25 Range/Units 20:19 WBC 10.6 (4.8-10.8) X10*3/uL RBC 4.90 (4.20-5.50) X10*6/uL Hgb 13.1 (12.0-16.0) g/dl Hct 37.9 (37.0-47.0) % MCV 77.3 L (80.0-98.0) fL MCH 26.7 L (27.0-33.0) pg MCHC 34.6 (31.0-35.0) g/dl RDW 14.8 (11.0-16.0) % Plt Count 241 (160-400) X10*3/uL MPV 11.0 (9.4-12.3) fL Immature Gran % (Auto) 0.3 (0.0-0.4) % Neut % (Auto) 73.2 H (45-73) % Lymph % (Auto) 22.2 (20-40) % [place] % (Auto) 3.9 (2-11) % Eos % (Auto) 0.0 (0-4) % Baso % (Auto) 0.4 (0-2) % Lymph # (Auto) 2.4 (1.2-4.9) X10*3/uL [place] # (Auto) 0.4 (0.1-1.2) X10*3/uL Eos # (Auto) 0.0 (0.0-0.4) X10*3/uL Baso # (Auto) 0.0 (0.0-0.2) X10*3/uL Abs Immat Gran (auto) 0.03 (0.00-0.03) X10*3/uL Absolute Neuts (auto) 7.8 (2.0-8.3) x10*3/uL Absolute Nucleated RBC 0.000 (0.0-0.012) X10*3/uL Nucleated RBC % (auto) 0.0 (0.0-0.2) /100WBC Sodium 138 (135-145) mmol/L Potassium 3.5 (3.3-5.1) mmol/L Chloride 99 (96-108) mmol/L Carbon Dioxide 22 (22-29) mmol/L Anion Gap 21 H (12-20) BUN 13 (9-16) mg/dL Creatinine 0.71 (0.5-1.4) mg/dL Estim Creat Clear Calc 124.2 Estimated GFR > 60 Random Glucose 94 (60-115) mg/dL Calcium 9.7 (8.4-10.2) mg/dL Total Bilirubin 0.6 (0.0-1.0) mg/dL Direct Bilirubin 0.3 (0.0-0.5) mg/dL AST 18 (5-31) U/L ALT 13 (0-31) U/L Alkaline Phosphatase 85 (39-117) U/L Total Protein 8.2 H (6.5-8.0) g/dL Albumin 5.0 (3.5-5.0) g/dL Beta HCG, Quant 49996 mIU/mL Influenza Type A (PCR) NEGATIVE (Negative) Influenza Type B (PCR) NEGATIVE (Negative) RSV RNA Qual (PCR) NEGATIVE (Negative) SARS-CoV-2 RNA (RT-PCR) NEGATIVE (Negative) External Record Review External record reviewed: Outpatient record Prescription Management I considered prescription management with: Other Medications Administered Discontinued Medications Generic Name Dose Route Start Last Admin Trade Name Freq PRN Reason Stop Dose Admin Diphenhydramine HCl 25 mg 01/28/25 22:44 01/28/25 22:56 Diphenhydramine Hcl 50 Mg/Ml Vial IVPUSH 01/28/25 22:45 25 mg ONCE ONE Administration Lactated Ringer's 1,000 mls @ 999 mls/hr 01/28/25 22:44 01/28/25 22:59 Lr IV 01/28/25 23:44 999 mls/hr .Q1H1M ONE Administration Metoclopramide HCl 10 mg 01/28/25 22:44 01/28/25 22:56 Metoclopramide Hcl 10 Mg/2 Ml Vial IVPUSH 01/28/25 22:45 10 mg ONCE ONE Administration Discharge Plan Discharge Clinical Impression: Hyperemesis, Acute dehydration Patient Disposition: Home, Self-Care Instructions: Dehydration (ED), Acute Nausea and Vomiting (ED) Additional Instructions: return for any worsening symptoms unable to eat or drink or any other concerns rest and stay hydrated can take medications for nausea and vomiting Prescriptions: New pyridoxine (vitamin B6) 25 mg tablet 25 mg PO BID Qty: 60 2RF Unisom (doxylamine) 25 mg tablet 25 mg PO DAILY Qty: 30 2RF metoclopramide HCl [Reglan] 10 mg tablet 10 mg PO Q6H PRN (Reason: nausea and vomiting) Qty: 30 0RF No Action azithromycin 500 mg tablet 1,000 mg PO DAILY 1 Days Qty: 2 0RF Rx Instructions: Take 2 tabs at one time. metronidazole [Flagyl] 500 mg tablet 500 mg PO BID 7 Days Qty: 14 0RF pyridoxine (vitamin B6) 25 mg tablet 25 mg PO BID 30 Days Qty: 60 1RF fluconazole 150 mg tablet 150 mg PO Q3D Qty: 2 0RF Plus 29 mg iron- 1 mg tablet 1 tab PO DAILY Qty: 30 3RF fluconazole 150 mg tablet 150 mg PO ONCE Qty: 1 0RF Rx Instructions: Take after your last dose of fluconazole metronidazole 500 mg tablet 500 mg PO BID Qty: 10 0RF Print Language: Serbian
[2025-01-28 20:25] LABS: MANUAL DIFF FLAG NO
[2025-01-28 20:26] LABS: Hematocrit 37.9 % (37.0-47.0); Hemoglobin 13.1 g/dl (12.0-16.0); Imm Gran Abs Auto 0.03 X10*3/uL (0.00-0.03); Imm Gran Pct Auto 0.3 % (0.0-0.4); Lymphocytes Absolute Auto 2.4 X10*3/uL (1.2-4.9); Mean Corpuscular HGB Conc 34.6 g/dl (31.0-35.0); Mean Corpuscular Hemoglobin 26.7 pg (27.0-33.0); Mean Corpuscular Volume 77.3 fL (80.0-98.0); NRBC Abs Auto 0.000 X10*3/uL (0.0-0.012); NRBC Pct Auto 0.0 /100WBC (0.0-0.2); Platelet Count 241 X10*3/uL (160-400); Red Blood Count 4.90 X10*6/uL (4.20-5.50); White Blood Count 10.6 X10*3/uL (4.8-10.8)
[2025-01-28 20:48] LABS: Alanine Aminotransferase 13 U/L (0-31); Albumin Level 5.0 g/dL (3.5-5.0); Alkaline Phosphatase 85 U/L (39-117); Anion Gap 21 (12-20); Aspartate Amino Transferase 18 U/L (5-31); Blood Urea Nitrogen 13 mg/dL (9-16); Calcium 9.7 mg/dL (8.4-10.2); Carbon Dioxide 22 mmol/L (22-29); Chloride 99 mmol/L (96-108); Creatinine Clr Calc Pharmacy 124.2; Estimated Glomerular Filt Rate > 60; Potassium 3.5 mmol/L (3.3-5.1); Sodium 138 mmol/L (135-145); Total Protein 8.2 g/dL (6.5-8.0)
[2025-01-28 21:02] LABS: Resp Syncy Virus RNA Qual PCR NEGATIVE (Negative); SARS COV2 PCR INHOUSE NEGATIVE (Negative)
--- OUTSIDE RECORDS SUMMARY | 2025-01-28 22:07 | XMS_ITS | Clinical Summary ---
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 Family History Medical History Relation Name Comments Diabetes Maternal Grandmother Other: fibromyalgia Mother Stroke Mother after gastric b ypass Relation Name Status Comments Father unknown Other Maternal Grandmother Alive Mother Alive Social History Tobacco Use Types Packs/Day Years Used Date Smoking Tobacco: Never Smokeless Tobacco: Never Alcohol Use Standard Drinks/Week Comments Yes 0 (1 standard drink = 0.6 oz pur e alcohol) Estimated Date of Delivery Comme nts Yes 04/11/2025 Sex and Gender Information Value Date Recorded Sex Assigned at Not on file Legal Sex Female 4:31 PM EST Gender Identity Not on file Sexual Orientation Not on file Obstetrics History Para Term AB IAB SAB Ectopic Multiple Livin g Live Births 1 Date Outcome GA Total Labor Labor/2nd/3rd Weight Sex Type Anes PTL Felicia A1 A5 Name Clin Current Last Filed Vital Signs Vital Sign Reading Time Taken Comments Blood Pressure 100/72 09/15/2024 2:48 AM EDT Pulse 84 09/15/2024 2:48 AM EDT Temperature 36.9 C (98.4 F) 09/15/2024 2:48 AM EDT Respiratory Rate 16 09/15/2024 2:48 AM EDT Oxygen Saturation 99% 09/15/2024 2:48 AM EDT Inhaled Oxygen Concentration - - Weight 77.6 kg (171 lb) 09/14/2024 8:44 PM EDT Height 167.6 cm (5' 6 ) 09/14/2024 8:44 PM EDT Body Mass Index 27.6 09/14/2024 8:44 PM EDT Plan of Treatment Health Maintenance Due Date Last Done Comments Hepatitis B Vaccines (3 of 3 - 3-dose series) 1998 1998, 1998 Pneumococcal Vaccine: Pediatrics (0 to 5 Years) and At-Risk Patients (6 to 49 Years) (1 of 2 - PCV) 2017 HIV Screening 02/08/2024 Hepatitis C Screening 02/08/2024 Social Influencers of Health Screening 02/08/2024 COVID-19 Vaccine ( season) 2024 06/06/2022, 03/19/2022, 02/14/2022 Depression Screening 06/15/2024 Influenza Vaccine (#1) 2025 , 04/26/2020, 04/16/2017, Additional history exists Cervical Cancer Screening: Pap Smear 09/15/2027 09/14/2024, 04/20/2023 DTaP,Tdap,and Td Vaccines (8 - Td or Tdap) 08/30/2030 08/30/2020, 12/02/2011, 09/06/2002, Additional history exists HIB Vaccines Completed 05/24/1999, 08/1998, 1998, Additional history exists IPV Vaccines Completed 09/06/2002, 12/1998, 1998, Additional history exists HPV Vaccines Completed 02/24/2011, 04/16, 03/04/2010 Meningococcal ACWY Vaccine Aged Out 12/02/2011 N o longer eligible based on patient's age to complete this topic Gonorrhea/Chlamydia Screening Discontinued 09/15/2024, 09/14/2024 Hepatitis A Vaccines Aged Out No long er eligible based on patient's age to complete this topic Meningococcal B Vaccine Aged Out No l onger eligible based on patient's age to complete this topic RSV Immunization Patients Under 20 months Aged Out No longer eligible based on patient's age to complete this topic Procedures Procedure Name Priority Date/Time Associated Diagnosis Comments CHLAMYDIA TRACHOMATIS AND NEISSERIA GONORRHOEAE PCR STAT 09/15/2024 1:45 AM EDT PAP SMEAR Routine 09/14/2024 12:00 AM EDT Encounter for gynecological examination (general) (routine) without abnormal findings from Last 3 Months or Most Recently Relevant to Health Maintenance Results * Chlamydia trachomatis and Neisseria gonorrhoeae molecular study (09/15/2024 1:45 AM EDT) Neisseria gonorrhoeae PCR Negative Negative LAB MOLECULAR DIAGNOSTICS METHOD 09/15/2024 9:07 AM EDT [facility] Chlamydia trachomatis PCR Negative Negative LAB MOLECULAR DIAGNOSTICS METHOD 09/15/2024 9:07 AM EDT [facility] Swab Cervix uteri structure / Unknown Non-blood Collection / Unknown 09/15/2024 1:45 AM EDT 09/15/2024 1:59 AM EDT us Ember NIÑO LAB MICROBIOLOGY - GENERAL ORD ERABLES Final Result [facility] [address] [place] [address], * Pap smear (09/14/2024 12:00 AM EDT) Interpretation Negative for intraepithelial lesion or malignancy 09/16/2024 10:01 AM EDT [facility] General Categorization Negative 09/16/2024 10:01 AM EDT [facility] Specimen Adequacy Satisfactory for evaluation, endocervical/elias sformation zone component absent 09/16/2024 10:01 AM EDT [facility] Pap Methodology Liquid Based Pap Test 09/16/2024 10:01 AM EDT [facility] Disclaimer The Pap test is a screening test which carries an inherent false negative rate. These test results should be correlated with the patient's clinical findings and history. This Pap test was processed using an automated screening system. Technical cytopathology services provided by [facility], at [address] [place] [address] (CLIA # [id number]/Alexx Madsen MD, Screen Writer.) 09/16/2024 10:01 AM EDT [facility]) [facility] Console Pap Interpretation Reported 09/16/2024 10:01 AM EDT [facility] Brushing/Spatula Cervix uteri structure / Unknown 09/14/2024 09/14/2024 3:31 PM EDT us Melissa Ayala MD LAB CYTOLOGY ORDERABLES Final Result [facility] [address] [place] [address], from Last 3 Months or Most Recently Relevant to Health Maintenance Insurance MEDICAID - [place] Care Teams Permaculture Contractor Relationship Specialty Start Date End Date Physician, Pcp Unknown PCP - General 09/14/24
[2025-01-28] MEDS: Lactated Ringers 1,000 ML 999 ML IV (22:59)
[2025-01-29] MEDS: Lactated Ringers 1,000 ML 999 ML IV (00:18)
--- NOTE | 2025-01-29 01:16 | PC.NURSE ---
pt requesting food and drink at this time, pt given crackers and juice
[2025-01-29 01:20] VITALS: BP 124/83; PULSE 78; RESP 15; TEMP 37.1; O2SAT 100
[2025-01-29 03:02] VITALS: BP 122/71; PULSE 78; RESP 15; TEMP 36.5; O2SAT 100
== END 2025-01-29 03:03 | disposition home or self-care (01) ==
PROVIDERS: Nurse Practitioner Family; Emergency Provider Emergency Medicine; PCP Student in an Organized Health Care Education/Training Program
DX: O21.0 Mild hyperemesis gravidarum (principal); E86.0 Dehydration; R10.9 Unspecified abdominal pain; R19.7 Diarrhea, unspecified; D50.9 Iron deficiency anemia, unspecified; Z3A.01 Less than 8 weeks gestation of pregnancy
CPT/HCPCS: 80048; 80076; 84702; 85025; 87637; 99285; J1200; J2765; J7120

== ENCOUNTER 2025-02-02 11:45 | Emergency (ER) | payer MEDICAID, SELFPAY ==
[2025-02-02] VITALS (7 sets, daily range): BP systolic 0–119; BP diastolic 0–68; PULSE 0–118; RESP 0–18; TEMP -17.7–36.8; O2SAT 0–100; BMI 28.2
--- NOTE | ~2025-02-02 | US_ITS ---
CLINICAL HISTORY: approx 6 week gestation with intractable nausea, US OB 1st trimester transabdominal Comparison: None provided Findings: Single intrauterine . CRL: 6.9 mm. EGA: 6 weeks, 4 days. WILLY: September 24, 2025. Previously established gestational age: N/A. Normal yolk sac. Cardiac activity: 110 bpm. No subchorionic bleed. IMPRESSION: Single intrauterine estimated 6 weeks, 4 days gestational age by today's ultrasound criteria. This document has been electronically signed by: Sigifredo García MD on 02/02/2025 20:04:29
--- NOTE | 2025-02-02 11:48 | ED.GENADULT ---
HPI - General Adult General Chief complaint: Nausea/Vomiting/Diarrhea Stated complaint: vomiting Time Seen by Provider: 02/02/25 12:06 Source: patient, RN notes reviewed and old records reviewed Mode of arrival: ambulatory Limitations: no limitations History of Present Illness ED Provider: Edouard Lyn PA-C HPI narrative: 25-year-old female approximately 6 weeks and 4 days on vitamins with medical history of asthma presents to ED due to nausea and vomiting. Patient states with her prior she had hyperemesis. Patient states she was seen in the department 5 days ago on 01/28 and was prescribed medication for nausea that has not been working. Patient states she has been attempting to eat and drink but is unable to keep anything down. Patient states she is feeling weak today which prompted her to seek care in the ED. patient denies tobacco use, drug use, ETOH. Denies vaginal discharge, vaginal bleeding, chest pain, shortness of breath, diarrhea, black/tarry stool, urinary symptoms MD complaint: nausea/vomiting Related Data Previous Rx's ?Medication ?Instructions ?Recorded pyridoxine (vitamin B6) 25 mg 25 mg PO BID 30 days #60 tabs 03/29/20 tablet azithromycin 500 mg tablet 1,000 mg (2 x 500 mg) PO DAILY 1 04/27/20 day #2 tabs metronidazole 500 mg tablet 500 mg PO BID 7 days #14 tabs 04/27/20 (Flagyl) vitamins with calcium 1 tab PO DAILY #30 tabs 08/30/20 no.72-iron 29 mg-folic acid 1 mg tablet ( Plus) fluconazole 150 mg tablet 150 mg PO Q3D 2 doses #2 tabs 09/28/20 fluconazole 150 mg tablet 150 mg PO ONCE #1 tab 10/02/20 metronidazole 500 mg tablet 500 mg PO BID #10 tabs 10/02/20 doxylamine succinate 25 mg tablet 25 mg PO DAILY #30 tabs 01/29/25 (Unisom (doxylamine)) metoclopramide HCl 10 mg tablet 10 mg PO Q6H PRN nausea and 01/29/25 (Reglan) vomiting #30 tabs pyridoxine (vitamin B6) 25 mg 25 mg PO BID #60 tabs 01/29/25 tablet cephalexin 500 mg capsule 500 mg PO TID 7 days #21 caps 02/02/25 ondansetron HCl 4 mg tablet 4 mg PO Q8H PRN nausea and 02/02/25 vomiting #12 tabs promethazine 12.5 mg rectal 12.5 mg [place] Q6H PRN nausea and 02/02/25 suppository vomiting #12 ea Allergies Allergy/AdvReac Type Severity Reaction Status Date / Time clarithromycin (From BIAXIN) AdvReac Intermediate NAUSEA & Verified 02/02/25 11:50 VOMITING Review of Systems Review of Systems: CONST: Negative for fever, body aches and chills. HENT: Negative for neck pain/stiffness, headache, congestion, sore throat, swelling. EYES: Negative for discharge/pain or vision changes. RESP: Negative for cough/hemoptysis and shortness of breath. CV: Negative chest pain, difficulty breathing, palpitations. ABD: Negative pain, nausea, vomiting. POS nausea, vomiting : Negative increase frequency, dysuria, blood in urine or stool. MUSC: Negative for muscle aches, edema. SKIN: Negative rash, lesions/sores. NEURO: Negative headache, dizziness. POS weakness due to nausea/vomiting Yes all other systems are reviewed and are negative [facility] Past Medical History Attestation statement: The following information was validated with the patient. Source: old records reviewed and nursing notes reviewed Medical History History of marijuana use Umbilical cyst Umbilical pain History of asthma Family History Family History Mother No problems noted. Father No problems noted. Maternal Grandmother Hx of diabetes mellitus Maternal Grandfather No problems noted. Paternal Grandmother No problems noted. Paternal Grandfather No problems noted. Brother History of epilepsy Sister History of asthma Social History Social History Household Members: Family Alcohol intake: never Smoked in Last 30 Days: No Use of substances other than those prescribed or required for medical reasons: No Advance Directives: No Advance Directives Information Provided: Yes Do you have a plan to hurt others: No Plan Patient : Yes Physical Exam ED Vital Signs: Vital Signs - 24 hr 02/02/25 11:48 02/02/25 13:44 02/02/25 15:00 Temperature 97.7 F Pulse Rate 118 H 80 99 Respiratory Rate 18 18 16 Blood Pressure 119/65 112/58 L 110/65 Pulse Oximetry 99 98 98 Oxygen Delivery Method Room Air Room Air Room Air 02/02/25 18:11 02/02/25 19:22 Temperature 97.9 F 98.2 F Pulse Rate 86 88 Respiratory Rate 18 16 Blood Pressure 114/67 115/68 Pulse Oximetry 100 98 Oxygen Delivery Method Room Air Room Air BMI result Body Mass Index 28.2 GENERAL APPEARANCE: ?AxOx4, tired appearing, no acute distress. HEENT: ?NC, AT. MMM. EOMI, clear conjunctiva, oropharynx clear. NECK: ?Supple without lymphadenopathy.? No stiffness or restricted ROM. HEART:? Normal rate and regular rhythm, normal S1/S2, no m/r/g LUNGS:? CTAB, moving air well. No crackles or wheezes are heard. ABDOMEN: ?Soft, diffusely tender, nondistended, no rigidity, no rebound tenderness, no guarding, negative Lujan's sign BACK: No CVAT, no obvious deformity. EXTREMITIES: ?Without cyanosis, clubbing or edema. NEUROLOGICAL: ?Grossly nonfocal. Alert and oriented, moving all 4 extremities. Observed to ambulate with normal gait. Skin: ?Warm and dry without any rash. Course Course Course Narrative: This is a rapid medical exam performed by Payam Prasad NP: Additional HPI, ROS, PE not included below will be deferred to primary provider. Patient is a 25-year-old female 6 weeks 4 days gestation with history of marijuana use, umbilical hernia presenting to the ED with complaint of nausea and vomiting. States she was prescribed anti nausea medication which is not helping. Reports brown emesis. Denies vaginal bleeding or abnormal discharge. History of one prior miscarriage. Plan: labs, UA, viral panel Medications Administered Discontinued Medications Generic Name Dose Route Start Last Admin Trade Name Freq PRN Reason Stop Dose Admin Al Hydroxide/Mg Hydroxide 15 ml 02/02/25 15:12 02/02/25 15:35 Magnesium Hydrox/Alum Hydrox 30 Ml Oral.Susp PO 02/02/25 15:13 15 ml ONCE ONE Administration Ceftriaxone Sodium 2 gm 02/02/25 19:11 02/02/25 19:23 Ceftriaxone Sodium 2 Gm Vial IVPUSH 02/02/25 19:12 2 gm ONCE ONE Administration Diphenhydramine HCl 25 mg 02/02/25 12:23 02/02/25 12:57 Diphenhydramine Hcl 50 Mg/Ml Vial IVPUSH 02/02/25 12:24 25 mg ONCE ONE Administration Lactated Ringer's 1,000 mls @ 999 mls/hr 02/02/25 12:23 02/02/25 14:34 Lr IV 02/02/25 13:23 Infused .Q1H1M ONE Infusion Magnesium Sulfate 2 gm in 50 mls @ 150 mls/hr 02/02/25 12:34 02/02/25 14:07 Magnesium Sulfate/H2o IV 02/02/25 12:53 Infused ONCE ONE Infusion Potassium Chloride 10 meq in 100 mls @ 100 mls/hr 02/02/25 15:00 02/02/25 17:47 Potassium Chloride/H20 IV 02/02/25 16:59 Infused Q1H JESSE Infusion Lactated Ringer's 1,000 mls @ 999 mls/hr 02/02/25 15:16 02/02/25 17:05 Lr IV 02/02/25 16:16 Infused .Q1H1M ONE Infusion Acetaminophen 1,000 mg in 100 mls @ 400 mls/hr 02/02/25 19:18 02/02/25 19:47 Ofirmev IV 02/02/25 19:32 Infused ONCE ONE Infusion Metoclopramide HCl 10 mg 02/02/25 12:23 02/02/25 12:57 Metoclopramide Hcl 10 Mg/2 Ml Vial IVPUSH 02/02/25 12:24 10 mg ONCE ONE Administration Promethazine HCl 12.5 mg 02/02/25 19:01 02/02/25 19:23 Promethazine Hcl 25 Mg/Ml Vial IM 02/02/25 19:02 12.5 mg ONCE ONE Administration Medical Decision Making Medical Decision Making MDM Narrative: 25-year-old female approximately 6 weeks and 4 days on vitamins with medical history of asthma presents to ED due to nausea and vomiting. Patient states with her prior she had hyperemesis. Patient states she was seen in the department 5 days ago on 01/28 and was prescribed medication for nausea that has not been working. Patient states she has been attempting to eat and drink but is unable to keep anything down. Patient states she is feeling weak today which prompted her to seek care in the ED. patient denies tobacco use, drug use, ETOH. Denies vaginal discharge, vaginal bleeding, VS on initial observation-normotensive 119/65, tachycardic with pulse rate of 118, respiratory rate of 18, afebrile with oral temp of 97.7?, O2 saturation 99% on room air. Patient is nontoxic appearing, lungs clear to auscultation bilaterally, cardiac exam with normal rate and rhythm no murmurs/rubs/gallops, abdomen soft, nondistended, no rigidity, diffusely tender. Labs reveal leukocytosis of 11.1, H and H stable, hypokalemia with potassium of 3.0, beta hCG quant [id number]. Patient being medicated with IV fluids, 25 mg Benadryl, 10 mg Reglan Course 14:25- patient with mild improvement of nausea after medicating with fluids, 25 mg Benadryl, 10 mg of Reglan. Patient states she is thirsty and hungry I gave patient haily eliane and saltine crackers. We will attempt to replete potassium with 40 mEq oral. 19:04- Patient states she felt a burning in the epigastric region of her stomach, medicated with Maalox with good effect, however nausea still persistent. I reached out to hospitalist Dr. Baker who recommended attempted transfer to [facility] as patient will be receiving OB care there and there will not be in house OB coverage for the next 4 days. I also reached out to OBGYN Dr. Hardy who recommended US and TSH for further evaluation. Patient is being signed out to my colleague Dr. Resendiz who will resume care of the patient. Patient is aware of this change and of the care plan. Patient is in agreement with this plan. Discussed with the medicine team here. They did not feel comfortable taking care patient without will be support here. I did contact [facility]. They state they can not take a patient who is under 20 weeks as a transferred to the OB unit. They are not taking any medicine transfer at this time. Discussed with patient about possible transfer to [facility] or [facility]. However patient states this is too far for her she does not want to be transferred. Discussed with patient about her nausea and vomiting. Patient was able to tolerate PO sandwich. We will plan to discharge patient with diplegia, Zofran and Phenergan suppository as needed for nausea control. Encouraged her to follow her OBGYN doctor. Patient agrees and understands this plan all questions were addressed. Differential Diagnosis Differential Diagnoses: The differential diagnosis associated with the presentation includes Dehydration Electrolyte imbalance Hyperemesis gravidarum Admission/Observation Consideration of admission/observation: Escalation of care including admission/observation considered Consult Healthcare Provider Management of the patient was discussed with: Hospitalist Lab Data MDM Lab Attestation statement: I reviewed the patient's lab results. 02/02/25 11:56 02/02/25 11:56 Labs: Lab Results 02/02/25 02/02/25 Range/Units 11:56 12:01 WBC 11.1 H (4.8-10.8) X10*3/uL RBC 4.86 (4.20-5.50) X10*6/uL Hgb 13.1 (12.0-16.0) g/dl Hct 37.3 (37.0-47.0) % MCV 76.7 L (80.0-98.0) fL MCH 27.0 (27.0-33.0) pg MCHC 35.1 H (31.0-35.0) g/dl RDW 14.2 (11.0-16.0) % Plt Count 257 (160-400) X10*3/uL MPV 11.8 (9.4-12.3) fL Immature Gran % (Auto) 0.2 (0.0-0.4) % Neut % (Auto) 77.1 H (45-73) % Lymph % (Auto) 17.9 L (20-40) % [place] % (Auto) 4.3 (2-11) % Eos % (Auto) 0.1 (0-4) % Baso % (Auto) 0.4 (0-2) % Lymph # (Auto) 2.0 (1.2-4.9) X10*3/uL [place] # (Auto) 0.5 (0.1-1.2) X10*3/uL Eos # (Auto) 0.0 (0.0-0.4) X10*3/uL Baso # (Auto) 0.1 (0.0-0.2) X10*3/uL Abs Immat Gran (auto) 0.02 (0.00-0.03) X10*3/uL Absolute Neuts (auto) 8.6 H (2.0-8.3) x10*3/uL Absolute Nucleated RBC 0.000 (0.0-0.012) X10*3/uL Nucleated RBC % (auto) 0.0 (0.0-0.2) /100WBC Sodium 135 (135-145) mmol/L Potassium 3.0 L (3.3-5.1) mmol/L Chloride 100 (96-108) mmol/L Carbon Dioxide 23 (22-29) mmol/L Anion Gap 15 (12-20) BUN 12 (9-16) mg/dL Creatinine 0.68 (0.5-1.4) mg/dL Estim Creat Clear Calc 122.7 Estimated GFR > 60 Random Glucose 104 (60-115) mg/dL Calcium 9.4 (8.4-10.2) mg/dL Magnesium 2.1 (1.6-2.6) mg/dL Total Bilirubin 0.8 (0.0-1.0) mg/dL AST 19 (5-31) U/L ALT 21 (0-31) U/L Alkaline Phosphatase 78 (39-117) U/L Total Protein 7.8 (6.5-8.0) g/dL Albumin 4.9 (3.5-5.0) g/dL Lipase 11 (8-78) U/L TSH 0.42 (0.32-4.0) uIU/mL Beta HCG, Quant 65587 mIU/mL Urine Color Dark Yellow Urine Appearance Turbid Urine pH 6.0 (5.0-9.0) Ur Specific [place] >= 1.030 H (1.005-1.025) Urine Protein 100 (2+) H (Neg-Trace) mg/dL Urine Glucose (UA) Negative (Negative) mg/dL Urine Ketones >=160 (Negative) mg/dL Urine Blood Negative (Negative) Urine Nitrite Negative (Negative) Ur Leukocyte Esterase Moderate (2+) H (Negative) Urine RBC 0-2 (0-2) /HPF Urine WBC 6-10 H (0-5) /HPF Ur Squamous Epith Cells >20 (0-2) /HPF Urine Bacteria 2+ (None Seen) Hyaline Casts 3-5 (0-2) /LPF Influenza Type A (PCR) NEGATIVE (Negative) Influenza Type B (PCR) NEGATIVE (Negative) RSV RNA Qual (PCR) NEGATIVE (Negative) SARS-CoV-2 RNA (RT-PCR) NEGATIVE (Negative) Independent Interpretation I performed an independent interpretation of an: Ultrasound Interpretation: OB US Radiology Impression Discussion of test interpretation with radiology: I have reviewed the radiologist's reading. Radiologist Impression: OB US External Record Review External record reviewed: Inpatient record, Office record and Outpatient record Chronic Conditions Patient?s care impacted by: Other () Discharge Plan Discharge Clinical Impression: Hyperemesis gravidarum Qualifiers: Weeks of gestation: less than 8 weeks Qualified Code(s): Z3A.01 - Less than 8 weeks gestation of Urinary tract infection Qualifiers: Urinary tract infection type: site unspecified Hematuria presence: without hematuria Qualified Code(s): N39.0 - Urinary tract infection, site not specified Patient Disposition: Home, Self-Care Instructions: Hyperemesis Gravidarum (ED) Additional Instructions: You do have signs of a UTI. Take the Keflex antibiotic as instructed. Please take the Unisom that was prescribed to and pyridoxine . This will help with your nausea and maintain antinausea for you. If you feel like your nausea still uncontrolled you may take the Zofran. If that does not work, you can take the suppository Phenergan for her nausea. Please make sure to follow up with your OBGYN doctor. Prescriptions: New cephalexin 500 mg capsule 500 mg PO TID 7 Days Qty: 21 0RF ondansetron HCl 4 mg tablet 4 mg PO Q8H PRN (Reason: nausea and vomiting) Qty: 12 0RF promethazine 12.5 mg suppository 12.5 mg [place] Q6H PRN (Reason: nausea and vomiting) Qty: 12 0RF Continued pyridoxine (vitamin B6) 25 mg tablet 25 mg PO BID Qty: 60 2RF Unisom (doxylamine) 25 mg tablet 25 mg PO DAILY Qty: 30 2RF No Action azithromycin 500 mg tablet 1,000 mg PO DAILY 1 Days Qty: 2 0RF Rx Instructions: Take 2 tabs at one time. metronidazole [Flagyl] 500 mg tablet 500 mg PO BID 7 Days Qty: 14 0RF metoclopramide HCl [Reglan] 10 mg tablet 10 mg PO Q6H PRN (Reason: nausea and vomiting) Qty: 30 0RF pyridoxine (vitamin B6) 25 mg tablet 25 mg PO BID 30 Days Qty: 60 1RF fluconazole 150 mg tablet 150 mg PO Q3D Qty: 2 0RF Plus 29 mg iron- 1 mg tablet 1 tab PO DAILY Qty: 30 3RF fluconazole 150 mg tablet 150 mg PO ONCE Qty: 1 0RF Rx Instructions: Take after your last dose of fluconazole metronidazole 500 mg tablet 500 mg PO BID Qty: 10 0RF Print Language: Wolof
[2025-02-02 12:01] LABS: MANUAL DIFF FLAG NO
[2025-02-02 12:02] LABS: Hematocrit 37.3 % (37.0-47.0); Hemoglobin 13.1 g/dl (12.0-16.0); Imm Gran Abs Auto 0.02 X10*3/uL (0.00-0.03); Imm Gran Pct Auto 0.2 % (0.0-0.4); Lymphocytes Absolute Auto 2.0 X10*3/uL (1.2-4.9); Mean Corpuscular HGB Conc 35.1 g/dl (31.0-35.0); Mean Corpuscular Hemoglobin 27.0 pg (27.0-33.0); Mean Corpuscular Volume 76.7 fL (80.0-98.0); NRBC Abs Auto 0.000 X10*3/uL (0.0-0.012); NRBC Pct Auto 0.0 /100WBC (0.0-0.2); Platelet Count 257 X10*3/uL (160-400); Red Blood Count 4.86 X10*6/uL (4.20-5.50); White Blood Count 11.1 X10*3/uL (4.8-10.8)
[2025-02-02 12:08] LABS: Appearance Urine Turbid; Glucose Urine UA Negative (Negative); PH 6.0 (5.0-9.0); Specific Gravity - Urine >= 1.030 (1.005-1.025); UMIC TRIGGER UACC YES
[2025-02-02 12:21] LABS: UACC Culture Trigger YES
[2025-02-02 12:24] LABS: Alanine Aminotransferase 21 U/L (0-31); Albumin Level 4.9 g/dL (3.5-5.0); Alkaline Phosphatase 78 U/L (39-117); Anion Gap 15 (12-20); Aspartate Amino Transferase 19 U/L (5-31); Blood Urea Nitrogen 12 mg/dL (9-16); Calcium 9.4 mg/dL (8.4-10.2); Carbon Dioxide 23 mmol/L (22-29); Chloride 100 mmol/L (96-108); Creatinine Clr Calc Pharmacy 122.7; Estimated Glomerular Filt Rate > 60; Lipase 11 U/L (8-78); Magnesium 2.1 mg/dL (1.6-2.6); Potassium 3.0 mmol/L (3.3-5.1); Sodium 135 mmol/L (135-145); Total Protein 7.8 g/dL (6.5-8.0)
[2025-02-02] MEDS: Lactated Ringers 1,000 ML 999 ML IV ×2 (12:36→15:36)
[2025-02-02 12:40] LABS: Resp Syncy Virus RNA Qual PCR NEGATIVE (Negative); SARS COV2 PCR INHOUSE NEGATIVE (Negative)
[2025-02-02] MEDS: Magnesium Sulfate/H2O 2 GM/50 ML PIGGYBACK IV (13:31)
[2025-02-02] MEDS: Magnesium Hydrox/Alum Hydrox 30 ML ORAL.SUSP 15 ML PO (15:35)
[2025-02-02] MEDS: Potassium Chloride/H20 10 MEQ/100 ML PIGGYBACK 100 MEQ IV ×2 (15:38→16:35)
--- NOTE | 2025-02-02 18:35 | PM.GYNCN ---
HOME IMPROVEMENT ADVISOR - CN: HPI Data of Consult Consult date: 02/02/25 Primary Care Provider: Vilma Casillas MD Consult Narrative Narrative: I was consulted on Flako Lai who is a 25 year old female at 6 weeks and 4 days of gestation presenting to the emergency room with intractable nausea and vomiting. P the patient was seen in the emergency room 5 days ago on 01/28 and was prescribed medication for nausea that has not been working. Patient states she has been attempting to eat and drink but is unable to keep anything down. Patient states she is feeling weak today which prompted her to seek care in the ED. cc:: CC: OB [facility] Past Medical History Medical History History of marijuana use Umbilical cyst Umbilical pain History of asthma Family History Family History Mother No problems noted. Father No problems noted. Maternal Grandmother Hx of diabetes mellitus Maternal Grandfather No problems noted. Paternal Grandmother No problems noted. Paternal Grandfather No problems noted. Brother History of epilepsy Sister History of asthma Social History Social History Household Members: Family Alcohol intake: never Meds Allergies Allergy/AdvReac Type Severity Reaction Status Date / Time clarithromycin (From BIAXIN) AdvReac Intermediate NAUSEA & Verified 02/02/25 11:50 VOMITING HOME IMPROVEMENT ADVISOR Physical Exam Vitals Vital signs: Temp Pulse Resp BP Pulse Ox O2 Del Method 97.9 F 86 18 114/67 100 Room Air 02/02/25 18:11 02/02/25 18:11 02/02/25 18:11 02/02/25 18:11 02/02/25 18:11 02/02/25 18:11 BMI result Body Mass Index 28.2 HOME IMPROVEMENT ADVISOR - Results Labs 02/02/25 11:56 02/02/25 11:56 Labs: Short CBC 02/02/25 Range/Units 11:56 WBC 11.1 H (4.8-10.8) X10*3/uL Hgb 13.1 (12.0-16.0) g/dl Hct 37.3 (37.0-47.0) % Plt Count 257 (160-400) X10*3/uL BMP 02/02/25 11:56 Sodium 135 Potassium 3.0 L Chloride 100 Carbon Dioxide 23 BUN 12 Creatinine 0.68 Calcium 9.4 Liver Function 02/02/25 Range/Units 11:56 Total Bilirubin 0.8 (0.0-1.0) mg/dL AST 19 (5-31) U/L ALT 21 (0-31) U/L Alkaline Phosphatase 78 (39-117) U/L Albumin 4.9 (3.5-5.0) g/dL Urine 02/02/25 Range/Units 12:01 Urine Color Dark Yellow Urine Appearance Turbid Urine pH 6.0 (5.0-9.0) Ur Specific [place] >= 1.030 H (1.005-1.025) Urine Protein 100 (2+) H (Neg-Trace) mg/dL Urine Glucose (UA) Negative (Negative) mg/dL Assessment and Plan (1) Hyperemesis gravidarum: Status: Acute Recommended to SALINAS Matthew the following: Admit to inpatient hospitalist service Ob US to rule out molar , TSH to rule out thyrotoxicosis K replacement IV hydration In terms of antimetic options: Try any of the following antiemetic if 1st medication doesn?t work move to the next not necessarily in the same order: -Dimenydrinate 50 mg in 50 cc over 20 min every 4 to 6 hours IV or -metoclopramide 5 to 10 mg every 8 hours IV -or Ondamseteon 8 over 15 minutes every 12 hours IV -or promethazine 12.5 to 25 mg every foot six hours IV If persistent symptoms add the following chlorpromazine 25 to 50 mg IV every 4 to 6 hours If persistent symptoms will need to add steroid IV methylprednisolone 16 mg every 8 hours IV for 3 days or orally then taper over 2 weeks to [place] effective dose not to exceed 6 weeks if effective Once nausea and vomiting is controlled , k is replaced , attempt p.o. diet and discharge since home on p.o. antiemetic med that was effective. I spent a total of 20 minutes reviewing the chart, communicating with the emergency room provider and documenting in the medical record.
--- NOTE | 2025-02-02 19:09 | PC.NURSE ---
ultrasound at bedside
[2025-02-02 19:14] LABS: Thyroid Stimulating Hormone 0.42 uIU/mL (0.32-4.0)
== END 2025-02-02 22:52 | disposition home or self-care (01) ==
PROVIDERS: Registered Nurse Emergency; Emergency Provider Student in an Organized Health Care Education/Training Program; PCP Student in an Organized Health Care Education/Training Program
DX: O21.0 Mild hyperemesis gravidarum (principal); R10.2 Pelvic and perineal pain; Z3A.01 Less than 8 weeks gestation of pregnancy; Z03.818 Encounter for observation for suspected exposure to other biological agents ruled out; Z79.899 Other long term (current) drug therapy
CPT/HCPCS: 76801; 76817; 80053; 81001; 83690; 83735; 84443; 84702; 85025; 87086; 87637; 96361; 96365; 96367; 96372; 96375; 99285; J0131; J0696; J1200; J2550; J2765; J3475; J3480; J7120

== ENCOUNTER → 2025-02-02 18:36 | Outpatient (BNV) | payer MEDICAID, SELFPAY | PROVIDERS: Emergency Provider Student in an Organized Health Care Education/Training Program; PCP Student in an Organized Health Care Education/Training Program; Visit Provider Specialist | DX: Z3A.01 Less than 8 weeks gestation of pregnancy (principal) | CPT/HCPCS: 76801; 76817 ==

== ENCOUNTER 2025-03-03 15:01 | Emergency (ER) | payer MEDICAID, SELFPAY ==
[2025-03-03 15:24] VITALS: BP 114/64; PULSE 125; RESP 16; TEMP 36.4; O2SAT 95; BMI 28.3
--- NOTE | 2025-03-03 15:24 | ED.GENADULT ---
HPI - General Adult General Chief complaint: Nausea/Vomiting/Diarrhea Stated complaint: Nausea Vomiting 10 Wks Preg Time Seen by Provider: 03/03/25 18:51 History of Present Illness HPI narrative: Patient is a 25-year-old female presented today with having nausea vomiting. Patient is proximally 11 weeks presented today with having nausea vomiting patient reported having some brown emesis earlier. Having pain in the epigastric area did not take any Zofran. This is patient's 3rd . Patient claims she can not tolerate any p.o. at all. Have 1 live 1 miscarriage. Related Data Previous Rx's ?Medication ?Instructions ?Recorded pyridoxine (vitamin B6) 25 mg 25 mg PO BID 30 days #60 tabs 03/29/20 tablet azithromycin 500 mg tablet 1,000 mg (2 x 500 mg) PO DAILY 1 04/27/20 day #2 tabs metronidazole 500 mg tablet 500 mg PO BID 7 days #14 tabs 04/27/20 (Flagyl) vitamins with calcium 1 tab PO DAILY #30 tabs 08/30/20 no.72-iron 29 mg-folic acid 1 mg tablet ( Plus) fluconazole 150 mg tablet 150 mg PO Q3D 2 doses #2 tabs 09/28/20 fluconazole 150 mg tablet 150 mg PO ONCE #1 tab 10/02/20 metronidazole 500 mg tablet 500 mg PO BID #10 tabs 10/02/20 doxylamine succinate 25 mg tablet 25 mg PO DAILY #30 tabs 01/29/25 (Unisom (doxylamine)) metoclopramide HCl 10 mg tablet 10 mg PO Q6H PRN nausea and 01/29/25 (Reglan) vomiting #30 tabs pyridoxine (vitamin B6) 25 mg 25 mg PO BID #60 tabs 01/29/25 tablet cephalexin 500 mg capsule 500 mg PO TID 7 days #21 caps 02/02/25 ondansetron HCl 4 mg tablet 4 mg PO Q8H PRN nausea and 02/02/25 vomiting #12 tabs promethazine 12.5 mg rectal 12.5 mg MO Q6H PRN nausea and 02/02/25 suppository vomiting #12 ea Allergies Allergy/AdvReac Type Severity Reaction Status Date / Time clarithromycin (From BIAXIN) AdvReac Intermediate NAUSEA & Verified 03/03/25 15:26 VOMITING Review of Systems Review of Systems: Positive nausea vomiting Yes all other systems are reviewed and are negative [facility] Past Medical History Attestation statement: The following information was validated with the patient. Medical History History of marijuana use Umbilical cyst Umbilical pain History of asthma Family History Family History Mother No problems noted. Father No problems noted. Maternal Grandmother Hx of diabetes mellitus Maternal Grandfather No problems noted. Paternal Grandmother No problems noted. Paternal Grandfather No problems noted. Brother History of epilepsy Sister History of asthma Social History Social History Household Members: Family Alcohol intake: never Smoked in Last 30 Days: No Use of substances other than those prescribed or required for medical reasons: No Advance Directives: No Advance Directives Information Provided: Yes Patient : Yes Physical Exam ED Exam Exam: Appearance: Alert. Oriented X3. No acute distress. Eyes: Pupils equal, round and reactive to light. ENT: Pharynx normal. Neck: Normal inspection. Neck supple. No lymph nodes noted. No crepitus CVS: Normal heart rate and rhythm. Pulses normal. Normal S1 and S2 Respiratory: No respiratory distress. Breath sounds normal. No Wheezing. No rales Abdomen: Soft and nontender. No rigidity. No distention. good BS x4 Skin: Skin warm and dry. Normal skin color. Normal skin turgor. Extremities: No lower extremity edema. Neurovascular intact to all extremities. No Lacerations. No Rash Neuro: Oriented X 3. No motor deficit. No sensory deficit. Moving all extermities. No slurred speech Vital Signs: Vital Signs - 24 hr 03/03/25 15:24 03/03/25 19:00 03/03/25 23:06 Temperature 97.6 F Pulse Rate 125 H 96 69 Respiratory Rate 16 18 16 Blood Pressure 114/64 110/68 100/54 L Pulse Oximetry 95 100 95 Oxygen Delivery Method Room Air Room Air Room Air BMI result Body Mass Index 28.3 Course Course Course Narrative: RME, this is a rapid medical exam performed by Keny Kong please refer to primary provider for complete H&P- 25-year-old female who is presents for evaluation of nausea and vomiting. She reports that she is approximately 10 weeks . She reports worsening vomiting over last 2 days. She has been vomiting dark brown. She reports that she had previously had any from Zofran but her OBGYN told her not to be taking it. Plan for labs and urinalysis Medications Administered Discontinued Medications Generic Name Dose Route Start Last Admin Trade Name Ang PRN Reason Stop Dose Admin Famotidine 20 mg 03/03/25 19:35 03/03/25 19:42 Famotidine/Pf 20 Mg/2 Ml Vial IVPUSH 03/03/25 19:36 20 mg ONCE ONE Administration Sodium Chloride 1,000 mls @ 999 mls/hr 03/03/25 19:15 03/03/25 21:21 Ns IV 03/03/25 20:15 Infused .Q1H1M JESSE Infusion Sodium Chloride 1,000 mls @ 999 mls/hr 03/03/25 19:15 03/03/25 21:43 Ns IV 03/03/25 20:15 Infused .Q1H1M JESSE Infusion Ondansetron HCl 4 mg 03/03/25 19:26 03/03/25 19:32 Ondansetron Hcl 4 Mg/2 Ml Vial IVPUSH 03/03/25 19:27 4 mg ONCE ONE Administration Medical Decision Making Medical Decision Making MDM Narrative: Patient felt extremely nauseous. Unable to tolerate any fluids. [place] at this time the risk of dehydration greater than risk from Zofran. Explained to patient about the risks benefit of using Zofran. Patient agreed to getting a dose of Zofran. No fever no chills. Had an ultrasound done a few weeks ago showed an intrauterine . I reviewed patient's old records including previous ultrasound. Will hydrate aggressively. Will monitor closely. Patient had 1 episode of vomiting brown like material. When we get a chance to get a nurse present will do a rectal exam. Patient's hemoglobin is 12.6 this is approximately baseline. More likely this is secondary to gastritis and repeated bouts of nausea vomiting. Monitor carefully. Pepcid offered. Patient given multiple L of fluids. Symptomatically much improved. Now tolerating p.o.. Wants to go home. Urine shows some ketones initially. Risk and benefit of the Zofran discussed with patient. Agreed the risk of dehydration to be greater. Patient given 1 dose here explained she needs to modify her diet. Close follow-up advised. Urine showed no signs of infection. Clinically feels much improved heart rate is down to 69. Will discharge patient home. Close follow-up on an outpatient basis. Differential Diagnosis Differential Diagnoses: The differential diagnosis associated with the presentation includes Hyperemesis Admission/Observation Consideration of admission/observation: Escalation of care including admission/observation considered Lab Data MDM Lab Attestation statement: I reviewed the patient's lab results. 03/03/25 15:33 03/03/25 15:33 Labs: Lab Results 03/03/25 03/03/25 Range/Units 15:33 15:37 WBC 9.0 (4.8-10.8) X10*3/uL RBC 4.72 (4.20-5.50) X10*6/uL Hgb 12.6 (12.0-16.0) g/dl Hct 36.5 L (37.0-47.0) % MCV 77.3 L (80.0-98.0) fL MCH 26.7 L (27.0-33.0) pg MCHC 34.5 (31.0-35.0) g/dl RDW 13.7 (11.0-16.0) % Plt Count 253 (160-400) X10*3/uL MPV 10.6 (9.4-12.3) fL Immature Gran % (Auto) 0.3 (0.0-0.4) % Neut % (Auto) 72.2 (45-73) % Lymph % (Auto) 23.0 (20-40) % Gove % (Auto) 4.0 (2-11) % Eos % (Auto) 0.2 (0-4) % Baso % (Auto) 0.3 (0-2) % Lymph # (Auto) 2.1 (1.2-4.9) X10*3/uL [place] # (Auto) 0.4 (0.1-1.2) X10*3/uL Eos # (Auto) 0.0 (0.0-0.4) X10*3/uL Baso # (Auto) 0.0 (0.0-0.2) X10*3/uL Abs Immat Gran (auto) 0.03 (0.00-0.03) X10*3/uL Absolute Neuts (auto) 6.5 (2.0-8.3) x10*3/uL Absolute Nucleated RBC 0.000 (0.0-0.012) X10*3/uL Nucleated RBC % (auto) 0.0 (0.0-0.2) /100WBC Sodium 137 (135-145) mmol/L Potassium 3.4 (3.3-5.1) mmol/L Chloride 103 (96-108) mmol/L Carbon Dioxide 23 (22-29) mmol/L Anion Gap 14 (12-20) BUN 8 L (9-16) mg/dL Creatinine 0.57 (0.5-1.4) mg/dL Estim Creat Clear Calc 152.2 Estimated GFR > 60 Random Glucose 89 (60-115) mg/dL Calcium 9.3 (8.4-10.2) mg/dL Magnesium 2.2 (1.6-2.6) mg/dL Total Bilirubin 0.5 (0.0-1.0) mg/dL AST 15 (5-31) U/L ALT 11 (0-31) U/L Alkaline Phosphatase 83 (39-117) U/L Total Protein 7.6 (6.5-8.0) g/dL Albumin 4.4 (3.5-5.0) g/dL Lipase 12 (8-78) U/L Beta HCG, Quant [id number] mIU/mL Urine Color Dark Yellow Urine Appearance Clear Urine pH 8.5 (5.0-9.0) Ur Specific [place] 1.025 (1.005-1.025) Urine Protein 100 (2+) H (Neg-Trace) mg/dL Urine Glucose (UA) Negative (Negative) mg/dL Urine Ketones 40 (Negative) mg/dL Urine Blood Negative (Negative) Urine Nitrite Negative (Negative) Ur Leukocyte Esterase Small (1+) H (Negative) Urine RBC 0-2 (0-2) /HPF Urine WBC 0-5 (0-5) /HPF Ur Squamous Epith Cells 11-20 (0-2) /HPF Urine Bacteria 1+ (None Seen) Hyaline Casts 0-2 (0-2) /LPF Independent Historian Clinical information obtained from an independent historian. History obtained from or confirmed by: Spouse External Record Review External record reviewed: Office record (Previous OB record reviewed) Social Determinants Patient?s care significantly limited by Social Determinants of Health including: Problems related to primary support group Discharge Plan Discharge Clinical Impression: Hyperemesis arising during Patient Disposition: Home, Self-Care Instructions: Hyperemesis Gravidarum (ED) Prescriptions: No Action azithromycin 500 mg tablet 1,000 mg PO DAILY 1 Days Qty: 2 0RF Rx Instructions: Take 2 tabs at one time. metronidazole [Flagyl] 500 mg tablet 500 mg PO BID 7 Days Qty: 14 0RF pyridoxine (vitamin B6) 25 mg tablet 25 mg PO BID Qty: 60 2RF Unisom (doxylamine) 25 mg tablet 25 mg PO DAILY Qty: 30 2RF metoclopramide HCl [Reglan] 10 mg tablet 10 mg PO Q6H PRN (Reason: nausea and vomiting) Qty: 30 0RF cephalexin 500 mg capsule 500 mg PO TID 7 Days Qty: 21 0RF ondansetron HCl 4 mg tablet 4 mg PO Q8H PRN (Reason: nausea and vomiting) Qty: 12 0RF promethazine 12.5 mg suppository 12.5 mg MO Q6H PRN (Reason: nausea and vomiting) Qty: 12 0RF pyridoxine (vitamin B6) 25 mg tablet 25 mg PO BID 30 Days Qty: 60 1RF fluconazole 150 mg tablet 150 mg PO Q3D Qty: 2 0RF Plus 29 mg iron- 1 mg tablet 1 tab PO DAILY Qty: 30 3RF fluconazole 150 mg tablet 150 mg PO ONCE Qty: 1 0RF Rx Instructions: Take after your last dose of fluconazole metronidazole 500 mg tablet 500 mg PO BID Qty: 10 0RF Referrals: Alec Hardy MD [Physician, [facility]] - 03/06/25 Print Language: French
[2025-03-03 15:37] LABS: MANUAL DIFF FLAG NO
[2025-03-03 15:38] LABS: Hematocrit 36.5 % (37.0-47.0); Hemoglobin 12.6 g/dl (12.0-16.0); Imm Gran Abs Auto 0.03 X10*3/uL (0.00-0.03); Imm Gran Pct Auto 0.3 % (0.0-0.4); Lymphocytes Absolute Auto 2.1 X10*3/uL (1.2-4.9); Mean Corpuscular HGB Conc 34.5 g/dl (31.0-35.0); Mean Corpuscular Hemoglobin 26.7 pg (27.0-33.0); Mean Corpuscular Volume 77.3 fL (80.0-98.0); NRBC Abs Auto 0.000 X10*3/uL (0.0-0.012); NRBC Pct Auto 0.0 /100WBC (0.0-0.2); Platelet Count 253 X10*3/uL (160-400); Red Blood Count 4.72 X10*6/uL (4.20-5.50); White Blood Count 9.0 X10*3/uL (4.8-10.8)
[2025-03-03 15:46] LABS: Appearance Urine Clear; Glucose Urine UA Negative (Negative); PH 8.5 (5.0-9.0); Specific Gravity - Urine 1.025 (1.005-1.025); UMIC TRIGGER UACC YES
[2025-03-03 15:55] LABS: Alanine Aminotransferase 11 U/L (0-31); Albumin Level 4.4 g/dL (3.5-5.0); Alkaline Phosphatase 83 U/L (39-117); Anion Gap 14 (12-20); Aspartate Amino Transferase 15 U/L (5-31); Blood Urea Nitrogen 8 mg/dL (9-16); Calcium 9.3 mg/dL (8.4-10.2); Carbon Dioxide 23 mmol/L (22-29); Chloride 103 mmol/L (96-108); Creatinine Clr Calc Pharmacy 152.2; Estimated Glomerular Filt Rate > 60; Lipase 12 U/L (8-78); Magnesium 2.2 mg/dL (1.6-2.6); Potassium 3.4 mmol/L (3.3-5.1); Sodium 137 mmol/L (135-145); Total Protein 7.6 g/dL (6.5-8.0)
[2025-03-03 16:26] LABS: UACC Culture Trigger YES
--- OUTSIDE RECORDS SUMMARY | 2025-03-03 18:45 | XMS_ITS | Encounter Summary ---
Author Organization [facility] Address [address] [place] [address] Care Team Providers Care Scrap Preparer Name Role Phone Physician, Pcp Unknown Primary Care Provider Teresa vailable Encounter Details Date Type Department Care Team (Latest Contact Info) Description 09/14/2024 Lab Requisition [facility] - Main Lab [address] [place] [address] Melissa Ayala MD [address] [address] [place] [address] Encounter for screening, unspecified; Encounter for screening for infections with a predominantly sexual mode of transmission Social History Tobacco Use Types Packs/Day Years [...] on file Sexual Orientation Not on file documented as of this encounter Plan of Treatment Not on file documented as of this encounter Procedures Procedure Name Priority Date/Time Associated Diagnosis Comments URINALYSIS WITH REFLEX MICROSCOPIC Routine 09/14/2024 12:00 AM EDT Encounter for screening, unspecified Encounter for screening for infections with a predominantly sexual mode of transmission URINALYSIS WITH REFLEX MICROSCOPIC Routine 09/14/2024 12:00 AM EDT Encounter for screening, unspecified Encounter for screening for infections with a predominantly sexual mode of transmission DRUG ABUSE SCREEN 8A PANEL, URINE Routine 09/14/2024 12:00 AM EDT Encounter for screening, unspecified Encounter for screening for infections with a predominantly sexual mode of transmission CHLAMYDIA TRACHOMATIS AND NEISSERIA GONORRHOEAE PCR Routine 09/14/2024 12:00 AM EDT Encounter for screening, unspecified Encounter for screening for infections with a predominantly sexual mode of transmission CULTURE URINE Routine 09/14/2024 12:00 AM EDT Encounter for screening, unspecified Encounter for screening for infections with a predominantly sexual mode of transmission documented in this encounter Results * (ABNORMAL) Urinalysis with reflex microscopic (09/14/2024 12:00 AM EDT) Pathologist [facility] [place] Urine 1.027 1.003 - 1.030 LAB URINALYSIS - AUTOMATED METHOD 09/14/2024 3:10 PM [facility] pH, Urine 5.5 5.0 - 8.0 pH LAB URINALYSIS - AUTOMATED METHOD 09/14/2024 3:10 PM [facility] Leukocytes, Urine Moderate(A) Negative LAB URINALYSIS - AUTOMATED METHOD 09/14/2024 3:10 PM [facility] Nitrite, Urine Negative Negative LAB URINALYSIS - AUTOMATED METHOD 09/14/2024 3:10 PM [facility] Protein, Urine Negative <=Trace mg/dL LAB URINALYSIS - AUTOMATED METHOD 09/14/2024 3:10 PM [facility] Glucose, Urine Negative Negative mg/dL LAB URINALYSIS - AUTOMATED METHOD 09/14/2024 3:10 PM [facility] Ketones, Urine Trace(A) Negative mg/dL LAB URINALYSIS - AUTOMATED METHOD 09/14/2024 3:10 PM [facility] Urobilinogen , Urine 1.0 0.2 - 1.0 mg/dL LAB URINALYSIS - AUTOMATED METHOD 09/14/2024 3:10 PM EDT [facility] Bilirubin, Urine Negative Negative LAB URINALYSIS - AUTOMATED METHOD 09/14/2024 3:10 PM EDT [facility] Blood, Urine Negative Negative LAB URINALYSIS - AUTOMATED METHOD 09/14/2024 3:10 PM EDT [facility] RBC, Urine 1.7 0 - 4 /HPF LAB URINALYSIS - AUTOMATED METHOD 09/14/2024 3:10 PM EDT [facility] WBC, Urine 10.0(H) 0 - 4 /HPF LAB URINALYSIS - AUTOMATED METHOD 09/14/2024 3:10 PM EDT [facility] Squamous Epithelial, Urine >100(H) 0 - 60 /LPF LAB URINALYSIS - AUTOMATED METHOD 09/14/2024 3:10 PM EDT [facility] Bacteria, Urine Few(A) Negative /HPF LAB URINALYSIS - AUTOMATED METHOD 09/14/2024 3:10 PM EDT [facility] Hyaline Casts, Urine 3.6(H) 0 - 3 /LPF LAB URINALYSIS - AUTOMATED METHOD 09/14/2024 3:10 PM EDT [facility] Urine Urine specimen obtained by clean catch procedure / Unknown 09/14/2024 09/14/2024 1:52 PM EDT us eMlissa Ayala MD LAB URINE ORDERABLES Fin al Result [facility] [address] [place] [address], * Chlamydia trachomatis and Neisseria gonorrhoeae molecular study (09/14/2024 12:00 AM EDT) Neisseria gonorrhoeae PCR Negative Negative LAB MOLECULAR DIAGNOSTICS METHOD 09/15/2024 8:35 AM EDT [facility] Chlamydia trachomatis PCR Negative Negative LAB MOLECULAR DIAGNOSTICS METHOD 09/15/2024 8:35 AM EDT [facility] Swab Cervix uteri structure / Unknown 09/14/2024 09/14/2024 1:52 PM EDT us Melissa Ayala MD LAB MICROBIOLOGY - GENER AL ORDERABLES Final Result Performing Organization Address City/[facility]/ZIP Co de Phone Number [facility] [address] [place] [address], [place] [phone] * Culture urine (09/14/2024 12:00 AM EDT) Culture, Urine No growth 09/15/2024 7:58 AM EDT [facility] Urine Urine specimen obtained by clean catch procedure / Unknown 09/14/2024 09/14/2024 1:52 PM EDT us Melissa Ayala MD LAB MICROBIOLOGY - GENER AL ORDERABLES Final Result Performing Organization Address City/[facility]/ZIP Co de Phone Number [facility] [address] [place] [address], [place] [phone] * (ABNORMAL) Drug abuse screen 8a panel, urine (09/14/2024 12:00 AM EDT) Amphetamine Screen, Ur Negative Negative LAB CHEMISTRY METHOD 5 10:19 PM EDT [facility] Comment:Certain OTC medicati ons containing ephedrine, phenylephrine, pseudoephedrine and phenylpropanolamine can cause false positive results. Barbiturate Screen, Ur Negative Negative LAB CHEMISTRY METHOD 5 10:19 PM EDT [facility] Benzodiazepine Screen, Ur Negative Negative LAB CHEMISTRY METHOD 5 10:19 PM EDT [facility] Cocaine Screen, Ur Negative Negative LAB CHEMISTRY METHOD 5 10:19 PM EDT [facility] Opiate Screen, Ur Negative Negative LAB CHEMISTRY METHOD 10:19 PM EDT [facility] Cannabinoid (THC) Screen, Ur Positive(A ) Negative LAB CHEMISTRY METHOD 10:19 PM EDT [facility] Comment:Specimens from patie nts taking pantoprazole sodium (Protonix) have been shown to produce false positive results. Oxycodone Screen, Ur Negative Negative LAB CHEMISTRY METHOD 10:19 PM EDT [facility] Fentanyl, Ur Negative Negative LAB CHEMISTRY METHOD 10:19 PM EDT [facility] Urine Urine specimen obtained by clean catch procedure / Unknown 09/14/2024 09/14/2024 1:52 PM EDT Narrative [facility] - 09/14/2024 10:19 PM EDT Assay cutoffs: Amphetamines 1000 ng/mL Barbiturates 200 ng/mL Benzodiazepines 200 ng/mL Cocaine 300 ng/mL Fentanyl 1 ng/mL Opiates 300 ng/mL Oxycodone 100 ng/mL THC 50 ng/mL Semi-quantitative assay for screening purposes only. Unconfirmed screening result should not be used for non-medical purposes. *ALTERNATE METHOD CONFIRMATION DONE UPON REQUEST ONLY* us Melissa Ayala MD LAB URINE ORDERABLES Fin al Result [facility] [address] [place] [address], documented in this encounter Visit Diagnoses Diagnosis Encounter for screening, unspecified Encounter for screening for infections with a predominantly sexual mode of transmission documented in this encounter Care Teams Scrap Preparer Relationship Specialty Start Date End Date Physician, Pcp Unknown PCP - General 09/14/24 documented as of this encounter
--- OUTSIDE RECORDS SUMMARY | 2025-03-03 18:45 | XMS_ITS | Encounter Summary ---
Author Organization [employer] Address [address] [place] [address] Care Team Providers Care First Front Ventilator Name Role Phone Vilma Rodriguez MD Primary Care Pro vider Encounter Details Date Type Department Care Team ([facility] Contact Info) Description 03/03/2025 Orders Only GENERIC EXTERNAL DATA DEPARTMENT Provider, Generic External Data Social History Tobacco Use Types Packs/Day Years Used Date Smoking Tobacco: Never Smokeless Tobacco: Never Alcohol Use Standard Drinks/Week Comments Yes 0 (1 standard drink = 0.6 oz pur e alcohol) social Depression Answer Date Recorded Patient Health Questionnaire-9 Score 0 12/07/2024 Patient Health Questionnaire-9 Score 0 12/07/2024 Last PHQ-9: Questionnaire Data Not on file 0 12/07/2024 Housing Stability Answer Date Recorded What is your housing situation today? I have arielle heredia 08/15/[address] you li ve. Do you have problems with any of the following? None of the above 08/15/2024 Food Insecurity Answer Date Recorded Within the past 12 months, y ou worried that your food would run out before you got money to buy more: Never True 08/15/2024 Within the past 12 months,th e food you bought just didn't last and you didn't have enough money to get more: Never True 08/2024 Transportation Answer Date Recorded In the past 12 months, has l ack of transportation kept you from medical appts, meetings, work or from getting things needed for daily living? Yes, it has kept me from medical appointments or getting medications. 08/15/2024 Utilities Answer Date Recorded In the past 12 months, has t he electric, gas, oil or water company threatened to shut off services in your home? No 08/15/2024 Depression Answer Date Recorded Patient Health Questionnaire-2 Score 0 12/07/2024 Internet Access Answer Date Recorded Internet Access Q1 Yes 08/15/2024 Internet Access Q2 Not on file 08/15/2024 Comments Yes Sex and Gender Information Value Date Recorded Sex Assigned at Female 04/14/2022 10:15 AM EDT Legal Sex Female 10:15 AM EDT Gender Identity Female 04/14/2022 10:15 AM EDT Sexual Orientation Straight 04/14/2022 10 :15 AM EDT documented as of this encounter Plan of Treatment Upcoming Encounters Date Type Department Care Team (Late st Contact Info) Description 04/18/2025 1:00 PM EST Office Visit [facility] [address] [place], [place] [id number] Kedar, Padmini, OD [address] [place] [address] documented as of this encounter Procedures Procedure Name Priority Date/Time Associated Diagnosis Comments URINALYSIS, COMPLETE, WITH REFLEX TO CULTURE Routine 03/03/2025 3:37 PM EDT CBC WITH AUTO DIFFERENTIAL Routine 03/03/2025 3:33 PM EDT HCG, TOTAL, QN Routine 03/03/2025 3:33 PM EDT MAGNESIUM Routine 03/03/2025 3:33 PM EDT LIPASE Routine 03/03/2025 3:33 PM EDT COMPREHENSIVE METABOLIC PANEL Routine 03/03/2025 3:33 PM EDT documented in this encounter Results * (ABNORMAL) Urinalysis, Complete, with Reflex to Culture (03/03/2025 3:37 PM EDT) Color Urine Dark Yellow [facility] Appearance Urine Clear [facility] PH 8.5 5.0 - 9.0 [facility] Glucose Urine UA Negative Negative mg/dL [facility] Urine Blood Negative Negative [facility] Specific [place] - Urine 1.025 1.005 - 1.025 [facility] Urine Protein 100 (2+)(A) Neg-Trace mg/dL [facility] Urine Ketones 40 Negative mg/dL [facility] Nitrite Urine Negative Negative [facility] Leukocyte Esterase Urine Small (1+)(A) Negative [facility] RBC Urine 0-2 0 - 2 /HPF [facility] Urine WBC 0-5 0 - 5 /HPF [facility] Urine Squamous Epithelial Cell 11-20 0 - 2 /HPF [facility] Urine Bacteria 1+ None Seen [facility] Hyaline Casts, Urine 0-2 0 - 2 /LPF [facility] 03/03/2025 3:37 PM EDT 03/03/2025 3:41 PM EDT Narrative [facility] - 03/03/2025 4:26 PM EDT [id number], Clean Catch us Generic External Data Provider LAB URINE ORDERAB LES Final Result [facility] [address] [place] [phone] [phone] * hCG, Total, Quantitative (03/03/2025 3:33 PM EDT) HCG Quantitative 101,323 mIU/mL [facility] Comment:Weeks post LMP Appro ximate hCG(Last Menstrual Period) Range (mIU/ml)3 - 4 weeks 9 - 1304 - 5 weeks 75 - 2,6005 - 6 weeks 850 - 20,8006 - 7 weeks 4000 - 100,2007 - 12 weeks 11,500 - 289,36651 - 16 weeks 18,300 - 137,70447 - 29 weeks (2nd trimester) 1,400 - 53,61021 - 41 weeks (3rd trimester) 940 - 60,000The Gutiérrez B-hCG assay is used for the early detection ofpregnancy; it cannot be used to diagnose any conditionunrelated to . If a B-hCG level is not supportedby the clinical evidence, results should be confirmed by analternative method (qualitative urine hCG, for example). 03/03/2025 3:33 PM EDT 03/03/2025 3:35 PM EDT Generic External Data Provider LAB BLOOD ORDERAB LES Final Result Performing Organization Address [facility] Co de Phone Number [facility] [address] [place] [phone] * Lipase (03/03/2025 3:33 PM EDT) Pathologist [facility] Lipase 12 8 - 78 U/L [facility] 03/03/2025 3:33 PM EDT 03/03/2025 3:35 PM EDT Generic External Data Provider LAB BLOOD ORDERAB LES Final Result Performing Organization Address [facility] Phone Number [facility] [address] [place] [phone] * Magnesium (03/03/2025 3:33 PM EDT) Pathologist [facility] Magnesium 2.2 1.6 - 2.6 mg/dL [facility] 03/03/2025 3:33 PM EDT 03/03/2025 3:35 PM EDT Generic External Data Provider LAB BLOOD ORDERAB LES Final Result Performing Organization Address [facility] de Phone Number [facility] [address] [place] [phone] * (ABNORMAL) Comprehensive Metabolic Panel (03/03/2025 3:33 PM EDT) Pathologist [facility] Sodium 137 135 - 145 mmol/L [facility] Potassium 3.4 3.3 - 5.1 mmol/L [facility] Chloride 103 96 - 108 mmol/L [facility] Carbon Dioxide 23 22 - 29 mmol/L [facility] Anion Gap 14 12 - 20 [facility] Urea Nitrogen (BUN) 8(L) 9 - 16 mg/dL [facility] Creatinine, Serum 0.57 0.5 - 1.4 mg/dL [facility] Creatinine Clr Calc Pharmacy 152.2 [facility] Comment:Provided height and weight: 165.1 cm,77.111 kg.eGFR (calculated from the MDRD study equation) and eCrCl(calculated from the Cockcroft-Gault equation) are based ondifferent parameters and may not yield comparable results.If eCrCl result is absurd, please check patient'sheight/weight. Estimated Glomerular Filt Rate >60 [facility] Comment:Chronic Kidney Disea se: Estimated GFR < 60 mL/min/1.23f2Bwgyxl Kidney Disease: Estimated GFR < 15 mL/min/1.73m2 Glucose 89 60 - 115 mg/dL [facility] Calcium 9.3 8.4 - 10.2 mg/dL [facility] Bilirubin, Total 0.5 0.0 - 1.0 mg/dL [facility] Aspartate Amino Transferase 15 5 - 31 U/L [facility] Alanine Aminotransferase 11 0 - 31 U/L [facility] Total Protein 7.6 6.5 - 8.0 g/dL [facility] Albumin Level 4.4 3.5 - 5.0 g/dL [facility] Alkaline Phosphatase 83 39 - 117 U/L [facility] 03/03/2025 3:33 PM EDT 03/03/2025 3:35 PM EDT us Generic External Data Provider LAB BLOOD ORDERAB LES Final Result [facility] [address] [place] [address] [phone] * (ABNORMAL) CBC auto differential (03/03/2025 3:33 PM EDT) White Blood Count 9.0 4.8 - 10.8 X10*3/uL [facility] Red Blood Count 4.72 4.20 - 5.50 X10*6/uL [facility] Hemoglobin 12.6 12.0 - 16.0 g/dl [facility] Hematocrit 36.5(L) 37.0 - 47.0 % [facility] Mean Corpuscular Volume 77.3(L) 80.0 - 98.0 fL [facility] Mean Corpuscular Hemoglobin 26.7(L) 27.0 - 33.0 pg [facility] Mean Corpuscular HGB Conc 34.5 31.0 - 35.0 g/dl [facility] Red Cell Distribution Width 13.7 11.0 - 16.0 % [facility] Platelet Count 253 160 - 400 X10*3/uL [facility] Mean Platelet Volume 10.6 9.4 - 12.3 fL [facility] Neutrophils Percent Auto 72.2 45 - 73 % [facility] Imm Gran Pct Auto 0.3 0.0 - 0.4 % [facility] Lymphocytes Percent Auto 23.0 20 - 40 % [facility] Monocytes Percent Auto 4.0 2 - 11 % [facility] Eosinophils Percent Auto 0.2 0 - 4 % [facility] Basophils Percent Auto 0.3 0 - 2 % [facility] NRBC Pct Auto 0.0 0.0 - 0.2 /100WBC [facility] Neutrophils Absolute Auto 6.5 2.0 - 8.3 x10*3/uL [facility] Imm Gran Abs Auto 0.03 0.00 - 0.03 X10*3/uL [facility] Lymphocytes Absolute Auto 2.1 1.2 - 4.9 X10*3/uL [facility] Monocytes Absolute Auto 0.4 0.1 - 1.2 X10*3/uL [facility] Eosinophils Absolute Auto 0.0 0.0 - 0.4 X10*3/uL [facility] Basophils Absolute Auto 0.0 0.0 - 0.2 X10*3/uL [facility] NRBC Abs Auto 0.000 0.0 - 0.012 X10*3/uL [facility] 03/03/2025 3:33 PM EDT 03/03/2025 3:35 PM EDT us Generic External Data Provider LAB BLOOD ORDERAB LES Final Result [facility] [address] [place] [phone] documented in this encounter Visit Diagnoses Not on filedocumented in this encounter Additional Health Concerns Assessment Noted Time PHQ-9 Depression Total Score: 0 12/08/19 9:20 AM EDT documented as of this encounter Care Teams First Front Ventilator Relationship Specialty Start Date End Date Vilma Rodriguez MD [address] [place] [phone] PCP - General Internal Medicine 12/12/24 documented as of this encounter
--- OUTSIDE RECORDS SUMMARY | 2025-03-03 18:45 | XMS_ITS | Clinical Summary ---
Author Organization [employer] Address [address] [facility] [address] [place] [address] Care Team Providers Care Securities Broker Name Role Phone Vilma Rodriguez MD Primary Care Pro vider Allergies Active Allergy Reactions Criticality Noted Date Comments Clarithromycin Nausea 11/17/2011 Medications Spacer/Aero-Hold ing Chambers (OptiChamber Sandy) misc 1 each every 4 (four) hours if needed (asthma). 1 each 5 Active albuterol 108 (90 Base) MCG/ACT inhaler Inhale 2 puffs every 4 (four) hours if needed for wheezing or shortness of breath. 18 g 3 5 12/08/19 26 Active Vit-Fe Fumarate-FA ( Plus) 27-1 MG tabletIndication s:, unspecified gestational age One tablet by mouth daily 30 tablet 11 5 Active Active Problems Problem Noted Date Diagnosed Date Health care maintenance 12/07/2024 Overweight (BMI 25.0-29.9) 12/07/2024 Asthma 08/10/2014 Attention deficit hyperactivity disorder 013 Comments Yes Encounters Date Type Department Care Team Description 03/03/2025 Orders Only GENERIC EXTERNAL DATA DEPARTMENT Provider, Generic External Data 02/07/2025 Orders Only [facility] [address] [place] [address] Vilma Rodriguez MD Less than 8 weeks gestation of (Primary Dx) 02/07/2025 Telephone [facility] [address] [place] [address] Vilma Rodriguez MD Referral 02/02/2025 Orders Only [facility] External Provider, [facility] 02/02/2025 Results Follow-Up [address] [address] Vilma Rodriguez MD CBC auto differential, Hepatic Function Panel, Basic Metabolic Panel, Additional followed-up results: 7 01/26/2025 10:00 AM EDT Office Visit [facility]ALK-[facility] [address] [address] Sanjuanita Ni MD Less than 8 weeks gestation of (Primary Dx) 01/25/2025 Travel 01/23/[address] [address] Vilma Rodriguez MD Care Management ([facility] Graduation) 12/29/[address] [address] Vilma Rodriguez MD Care Management (C3 follow up call) 12/08/2024 Orders Only [address] [address] Vilma Rodriguez MD Health care maintenance (Primary Dx) 12/08/2024 Results Follow-Up [address] [address] Vilma Rodriguez MD Iron And Total Iron Binding Capacity, Ferritin, CBC, Additional followed-up results: 11 12/07/2024 9:15 AM EDT Office Visit [address] [address] Vilma Rodriguez MD Health care maintenance (Primary Dx); Asthma, unspecified asthma severity, unspecified whether complicated, unspecified whether persistent; Annual physical exam; , unspecified gestational age; Overweight (BMI 25.0-29.9) 12/07/2024 Travel 12/06/[address] [address] Vilma Rodriguez MD CHART PREP 12/06/[address] [address] Cristin Vilchis Care Management ([facility] follow up call) from Last 3 Months Immunizations Immunization Administration Dates Next Due DTP 1998 DTaP 09/06/2002, 9,1998,07/24,1998 HPV, Quadrivalent 02/24/2011,05/08/2010,03/04/20 10 Hep B, Adolescent or Pediatric 1998,1997,1998 Hib (HbOC) 05/24/1999, 9,1998,03/15 Hib (PRP-T) 1998 IPV 09/06/2002,1998,1998 Influenza injectable quadriv alent IIV4 with preservative 04/16/2017 Influenza injectable quadriv alent preservative free 03/19/2022,04/26/2020,07/04/2016,03/07,06/29/2014 Influenza, IIV3, injectable 03/19/2022,1 06/26/2019,04/16/2017,07/04,03/07/2015,06/29/2014,03/04/2010 ,10/17/2009,04/21/2005,04/23/2004 Influenza, Split (incl. arnulfo fied surface antigen) 02/28/2013,02/26/2012 MMR 09/06/2002,02/19/1999 Meningococcal ACWY, unspecified 12/02/2011 Meningococcal MCV4P ACYW-135 12/02/2011 OPV, Trivalent 02/19/1999,1998 Pfizer Covid-19 Vaccine 12+ Bivalent 06/06/2022 Tdap 08/30/2020,12/02/2011 Varicella 12/02/2011,02/19/1999 Family History Medical History Relation Name Comments DM2 Maternal Grandmother unspecified maligancy Mother's Sister Relation Name Status Comments Maternal Grandmother Mother's Sister Social History Tobacco Use Types Packs/Day Years Used Date Smoking Tobacco: Never Smokeless Tobacco: Never Tobacco Cessation:Counseling Given: Not Answered Alcohol Use Standard Drinks/Week Comments Yes 0 [...] Q2 Not on file 08/15/2024 Comments Yes Intention Date Recorded Wants to become (finding) 08/08 Sex and Gender Information Value Date Recorded Sex Assigned at Female 04/14/2022 10:15 AM EDT Legal Sex Female 10:15 AM EDT Gender Identity Female 04/14/2022 10:15 AM EDT Sexual Orientation Straight 04/14/2022 10 :15 AM EDT Last Filed Vital Signs Vital Sign Reading Time Taken Comments Blood Pressure 121/88 01/26/2025 9:58 AM EDT Pulse 95 01/26/2025 9:58 AM EDT Temperature 36.5 C (97.7 F) 01/26/2025 9:58 AM EDT Respiratory Rate 18 01/26/2025 9:58 AM EDT Oxygen Saturation 99% 01/26/2025 9:58 AM EDT Inhaled Oxygen Concentration - - Weight 81.4 kg (179 lb 6.4 oz) 01/26/2025 9:58 A M EDT Height 165.1 cm (5' 5 ) 12/07/2024 9:18 AM EDT Body Mass Index 29.85 12/07/2024 9:18 AM EDT Plan of Treatment Upcoming Encounters Date Type Department Care Team (Late st Contact Info) Description 04/18/2025 1:00 PM EST Office Visit [facility] [address] [place] [address] Padmini Thacker, OD [address] [place] [address] Health Maintenance Due Date Last Done Comments Hepatitis B Vaccines (3 of 3 - 3-dose series) 1998 1998, 1998, 1998, Additional history exists Pneumococcal Vaccine: Pediatrics (0 to 5 Years) and At-Risk Patients (6 to 49) Years (1 of 2 - PCV) 2017 COVID-19 Vaccine ( - season) 2025 06/06/2022, 03/19/2022, 02/14/2022 Influenza Vaccine (#1) 2025 , 03/19/2022, 04/26/2020, Additional history exists Family Planning (PISQ) 08/08/2025 08/08/2024 SDOH Screening 08/15/2025 08/15/2024 Alcohol/Substance Use Screening 12/07/2025 12/07/2024 Depression Screening 12/07/2025 12/07/2024, 12/08/19 Tobacco Screening 12/07/2025 12/07/2024 Disability Screening 01/25/2026 01/25/2025 Pap Smear 04/20/2026 04/20/2023, 04/20/2023 DTaP/Tdap/Td Vaccines (8 - Td or Tdap) 08/30/2030 08/30/2020, 12/02/2011, 09/06/2002, Additional history exists Zoster Vaccines (1 of 2) 02/01/2048 RSV Patients and Patients Aged 60 years or older (1 - 1-dose 75+ series) 2073 HIB Vaccines Completed 05/24/1999, 08/1998, 1998, Additional history exists IPV Vaccines Completed 09/06/2002, 12/1998, 1998, Additional history exists HPV Vaccines Completed 02/24/2011, 04/16, 03/04/2010 Meningococcal Vaccine Aged Out 12/02/2011, 012 No longer eligible based on patient's age to complete this topic HIV Screening Completed 12/07/2024 Hepatitis C Screening Completed 12/07/2024 Hepatitis A Vaccines Aged Out No long er eligible based on patient's age to complete this topic Meningococcal B Vaccine Aged Out No l onger eligible based on patient's age to complete this topic RSV under 20 months Aged Out No longe r eligible based on patient's age to complete this topic Rotavirus Vaccines Aged Out No longer eligible based on patient's age to complete this topic Procedures Procedure Name Priority Date/Time Associated Diagnosis Comments URINALYSIS, COMPLETE, WITH REFLEX TO CULTURE Routine 03/03/2025 3:37 PM EDT HCG, TOTAL, QN Routine 03/03/2025 3:33 PM EDT LIPASE Routine 03/03/2025 3:33 PM EDT MAGNESIUM Routine 03/03/2025 3:33 PM EDT COMPREHENSIVE METABOLIC PANEL Routine 03/03/2025 3:33 PM EDT CBC WITH AUTO DIFFERENTIAL Routine 03/03/2025 3:33 PM EDT US OB PELVIS TRANSVAGINAL Routine 02/02/2025 8:04 PM EDT URINALYSIS, COMPLETE, WITH REFLEX TO CULTURE Routine 02/02/2025 12:01 PM EDT Health care maintenance TSH Routine 02/02/2025 11:56 AM EDT Health care maintenance HCG, TOTAL, QN Routine 02/02/2025 11:56 AM EDT Health care maintenance LIPASE Routine 02/02/2025 11:56 AM EDT Health care maintenance MAGNESIUM Routine 02/02/2025 11:56 AM EDT Health care maintenance COMPREHENSIVE METABOLIC PANEL Routine 02/02/2025 11:56 AM EDT Health care maintenance CBC WITH AUTO DIFFERENTIAL Routine 02/02/2025 11:56 AM EDT Health care maintenance SARS COV2/INFLUENZA A/B AND RSV RNA QL NAAT Routine 02/02/2025 11:56 AM EDT Health care maintenance CULTURE, URINE, ROUTINE Routine 02/02/2025 12:00 AM EDT HCG, TOTAL, QN Routine 01/28/2025 8:19 PM EDT Health care maintenance BASIC METABOLIC PANEL Routine 01/28/2025 8:19 PM EDT Health care maintenance HEPATIC FUNCTION PANEL Routine 8:19 PM EDT Health care maintenance CBC WITH AUTO DIFFERENTIAL Routine 01/28/2025 8:19 PM EDT Health care maintenance SARS COV2/INFLUENZA A/B AND RSV RNA QL NAAT Routine 01/28/2025 8:19 PM EDT Health care maintenance CHLAMYDIA/TRICHOMONAS/ NEISSERIA GONORRHOEAE, PCR, URINE Routine 12/09/2024 1:45 PM EDT Encntr screen for infections w sexl mode of transmiss TSH W/REFLEX TO FT4 Routine 12/07/2024 9 :53 AM EDT Annual physical exam SYPHILIS SCREEN Routine 12/07/2024 9:53 AM EDT Annual physical exam LIPID PANEL, STANDARD Routine 12/07/2024 9:53 AM EDT Annual physical exam HIV 1/2 ANTIGEN/ANTIBODY, FOURTH GENERATION W/RFL Routine 12/07/2024 9:53 AM EDT Annual physical exam HEPATITIS C AB W/REFL TO HCV RNA, QN, PCR Routine 12/07/2024 9:53 AM EDT Annual physical exam HEPATITIS B SURFACE ANTIGEN, EIA Routine 12/07/2024 9:53 AM EDT Annual physical exam HEPATITIS B SURFACE ANTIBODY, QUALITATIVE Routine 12/07/2024 9:53 AM EDT Annual physical exam HEPATITIS B CORE AB TOTAL Routine 12/07/2024 9:53 AM EDT Annual physical exam HEMOGLOBIN A1C Routine 12/07/2024 9:53 AM EDT Annual physical exam COMPREHENSIVE METABOLIC PANEL Routine 12/07/2024 9:53 AM EDT Annual physical exam CBC Routine 12/07/2024 9:53 AM EDT Annual physical exam FERRITIN Routine 12/07/2024 9:53 AM EDT Annual physical exam IRON AND TOTAL IRON BINDING CAPACITY Routine 12/07/2024 9:53 AM EDT Annual physical exam PAP SMEAR Routine 04/20/2023 11:21 AM EST from Last 3 Months or Most Recently Relevant to Health Maintenance Results * (ABNORMAL) Urinalysis, Complete, with Reflex to Culture (03/03/2025 3:37 PM EDT) Only the most recent of2 resultswithin the time period is included. Color Urine Dark Yellow [facility] Appearance Urine Clear [facility] PH 8.5 5.0 - 9.0 [facility] Glucose Urine UA Negative Negative mg/dL [facility] Urine Blood Negative Negative [facility] Specific [place] - Urine 1.025 1.005 - 1.025 [facility] Urine Protein 100 (2+)(A) Neg-Trace mg/dL [facility] Urine Ketones 40 Negative mg/dL [facility] Nitrite Urine Negative Negative [facility] Leukocyte Esterase Urine Small (1+)(A) Negative [facility] RBC Urine 0-2 0 - 2 /HPF [facility] Urine WBC 0-5 0 - 5 /HPF [facility] Urine Squamous Epithelial Cell 11-20 0 - 2 /HPF [facility] Urine Bacteria 1+ None Seen [facility] Hyaline Casts, Urine 0-2 0 - 2 /LPF [facility] 03/03/2025 3:37 PM EDT 03/03/2025 3:41 PM EDT Narrative [facility] - 03/03/2025 4:26 PM EDT [id number], Clean Catch us Generic External Data Provider LAB URINE ORDERAB LES Final Result [facility] [address] [place] [phone] * (ABNORMAL) CBC auto differential (03/03/2025 3:33 PM EDT) Only the most recent of3 resultswithin the time period is included. White Blood Count 9.0 4.8 - 10.8 X10*3/uL [facility] Red Blood Count 4.72 4.20 - 5.50 X10*6/uL [facility] Hemoglobin 12.6 12.0 - 16.0 g/dl [facility] Hematocrit 36.5(L) 37.0 - 47.0 % [facility] Mean Corpuscular Volume 77.3(L) 80.0 - 98.0 fL [facility] Mean Corpuscular Hemoglobin 26.7(L) 27.0 - 33.0 pg [facility] Mean Corpuscular HGB Conc 34.5 31.0 - 35.0 g/dl [facility] Red Cell Distribution Width 13.7 11.0 - 16.0 % [facility] Platelet Count 253 160 - 400 X10*3/uL [facility] Mean Platelet Volume 10.6 9.4 - 12.3 fL [facility] Neutrophils Percent Auto 72.2 45 - 73 % [facility] Imm Gran Pct Auto 0.3 0.0 - 0.4 % [facility] Lymphocytes Percent Auto 23.0 20 - 40 % [facility] Monocytes Percent Auto 4.0 2 - 11 % [facility] Eosinophils Percent Auto 0.2 0 - 4 % [facility] Basophils Percent Auto 0.3 0 - 2 % [facility] NRBC Pct Auto 0.0 0.0 - 0.2 /100WBC [facility] Neutrophils Absolute Auto 6.5 2.0 - 8.3 x10*3/uL [facility] Imm Gran Abs Auto 0.03 0.00 - 0.03 X10*3/uL [facility] Lymphocytes Absolute Auto 2.1 1.2 - 4.9 X10*3/uL [facility] Monocytes Absolute Auto 0.4 0.1 - 1.2 X10*3/uL [facility] Eosinophils Absolute Auto 0.0 0.0 - 0.4 X10*3/uL [facility] Basophils Absolute Auto 0.0 0.0 - 0.2 X10*3/uL [facility] NRBC Abs Auto 0.000 0.0 - 0.012 X10*3/uL [facility] 03/03/2025 3:33 PM EDT 03/03/2025 3:35 PM EDT us Generic External Data Provider LAB BLOOD ORDERAB LES Final Result [facility] [address] [place] [address] [phone] * hCG, Total, Quantitative (03/03/2025 3:33 PM EDT) Only the most recent of3 resultswithin the time period is included. HCG Quantitative 101,323 mIU/mL [facility] Comment:Weeks post LMP Appr oximate hCG(Last Menstrual Period) Range (mIU/ml)3 - 4 weeks 9 - 1304 - 5 weeks 75 - 2,6005 - 6 weeks 850 - 20,8006 - 7 weeks 4000 - 100,2007 - 12 weeks 11,500 - 289,00218 - 16 weeks 18,300 - 137,89742 - 29 weeks (2nd trimester) 1,400 - 53,88905 - 41 weeks (3rd trimester) 940 - 60,000The [facility] B- hCG assay is used for the early detection ofpregnancy; it cannot be used to diagnose any conditionunrelated to . If a B-hCG level is not supportedby the clinical evidence, results should be confirmed by analternative method (qualitative urine hCG, for example). 03/03/2025 3:33 PM EDT 03/03/2025 3:35 PM EDT us Generic External Data Provider LAB BLOOD ORDERAB LES Final Result Performing Organization Address [facility]/ZIP Co de Phone Number [facility] [address] [place] [address] [phone] * Magnesium (03/03/2025 3:33 PM EDT) Only the most recent of2 resultswithin the time period is included. Magnesium 2.2 1.6 - 2.6 mg/dL [facility] 03/03/2025 3:33 PM EDT 03/03/2025 3:35 PM EDT Generic External Data Provider LAB BLOOD ORDERAB LES Final Result Performing Organization Address City/[facility]/ZIP Co de Phone Number [facility] [address] [place] [address] [phone] * Lipase (03/03/2025 3:33 PM EDT) Only the most recent of2 resultswithin the time period is included. Lipase 12 8 - 78 U/L [facility] 03/03/2025 3:33 PM EDT 03/03/2025 3:35 PM EDT us Generic External Data Provider LAB BLOOD ORDERAB LES Final Result [facility] [address] [place] [address] [phone] * (ABNORMAL) Comprehensive Metabolic Panel (03/03/2025 3:33 PM EDT) Only the most recent of3 resultswithin the time period is included. Sodium 137 135 - 145 mmol/L [facility] Potassium 3.4 3.3 - 5.1 mmol/L [facility] Chloride 103 96 - 108 mmol/L [facility] Carbon Dioxide 23 22 - 29 mmol/L [facility] Anion Gap 14 12 - 20 [facility] Urea Nitrogen (BUN) 8(L) 9 - 16 mg/dL [facility] Creatinine, Serum 0.57 0.5 - 1.4 mg/dL [facility] Creatinine Clr Calc Pharmacy 152.2 [facility] Comment:Provided height and weight: 165.1 cm,77.111 kg.eGFR (calculated from the MDRD study equation) and eCrCl(calculated from the Cockcroft-Gault equation) are based ondifferent parameters and may not yield comparable results.If eCrCl result is absurd, please check patient'sheight/weight. Estimated Glomerular Filt Rate >60 [facility] Comment:Chronic Kidney Disea se: Estimated GFR < 60 mL/min/1.17k3Kjfeax Kidney Disease: Estimated GFR < 15 mL/min/1.73m2 Glucose 89 60 - 115 mg/dL [facility] Calcium 9.3 8.4 - 10.2 mg/dL [facility] Bilirubin, Total 0.5 0.0 - 1.0 mg/dL [facility] Aspartate Amino Transferase 15 5 - 31 U/L [facility] Alanine Aminotransferase 11 0 - 31 U/L [facility] Total Protein 7.6 6.5 - 8.0 g/dL [facility] Albumin Level 4.4 3.5 - 5.0 g/dL [facility] Alkaline Phosphatase 83 39 - 117 U/L [facility] 03/03/2025 3:33 PM EDT 03/03/2025 3:35 PM EDT us Generic External Data Provider LAB BLOOD ORDERAB LES Final Result Performing Organization Address City/State/[facility] Co de Phone Number [facility] [address] [place] [phone] * US OB Pelvis with Transvaginal (02/02/2025 8:04 PM EDT) Anatomical Region Laterality Modality Pelvis Ultrasound 02/02/2025 8:04 PM EDT Narrative 02/02/2025 8:05 PM EDT [address] [address] Ultrasound Report Signed Patient: Flako Lai MR#: [id number] : 2000 Acct:[id number] Age/Sex: 25 / F ADM Date: 02/02/25 Loc: HO.ED Attending Dr: Ordering Physician: Riki Nunn PA-C Date of Service: 02/02/25 Procedure(s): US OB pelvic and transvaginal Accession Number(s): [id number] cc: Rkii Nunn PA-C; Vilma Rodriguez MD CLINICAL HISTORY: approx 6 week gestation with intractable nausea, US OB 1st trimester transabdominal Comparison: None provided Findings: Single intrauterine . CRL: 6.9 mm. EGA: 6 weeks, 4 days. WILLY: September 24, 2025. Previously established gestational age: N/A. Normal yolk sac. Cardiac activity: 110 bpm. No subchorionic bleed. IMPRESSION: Single intrauterine estimated 6 weeks, 4 days gestational age by today's ultrasound criteria. This document has been electronically signed by: Sigifredo García MD on 02/02/2025 20:04:29 Dictated By: Sigifredo García MD Signed By: <Electronically signed by Sigifredo García MD in OV> 02/02/252004 DD/ 03 TD/TT: 02/02/252003 Senior Oracle Applications Developer: Procedure Note Donotuseinterpreter, Image - 02/02/2025 [place] [address] Ultrasound Report Signed Patient: Lelo Lai#: [id number] : 2000Acct:[id number] Age/Sex: 25 / FADM Date: 02/02/25 Loc: HO.ED Attending Dr: Ordering Physician: Riki Nunn PA-C Date of Service: 02/02/25 Procedure(s): US OB pelvic and transvaginal Accession Number(s): [id number] cc: Riki Nunn PA-C; Vilma Rodriguez MD CLINICAL HISTORY: approx 6 week gestation with intractable nausea, US OB 1st trimester transabdominal Comparison: None provided Findings: Single intrauterine . CRL: 6.9 mm. EGA: 6 weeks, 4 days. WILLY: September 24, 2025. Previously established gestational age: N/A. Normal yolk sac. Cardiac activity: 110 bpm. No subchorionic bleed. IMPRESSION: Single intrauterine estimated 6 weeks, 4 days gestational age by today's ultrasound criteria. This document has been electronically signed by: Sigifredo García MD on 02/02/2025 20:04:29 Dictated By: Sigifredo García MD Signed By: <Electronically signed by Sigifredo García MD in OV> 02/02/252004 DD/ 03 TD/TT: 02/02/252003 Senior [employer] Applications Developer: us [facility] External Provider IMG US PROCEDURES Final Result * SARS-CoV-2 RNA, Influenza A/B, and RSV RNA, Ql NAAT (02/02/2025 11:56 AM EDT) Only the most recent of2 resultswithin the time period is included. Influenza A PCR NEGATIVE Negative [facility] Influenza B PCR NEGATIVE Negative [facility] Resp Syncy Virus RNA Qual PCR NEGATIVE Negative [facility] SARS COV2 PCR NEGATIVE Negative [facility] Comment:All test results mus t be correlated with clinical findings.Negative results do not preclude SARS-CoV2, influenza Avirus, influenza B virus and/or RSV infectionand should not be used as the sole basis for treatment orother patient management decisions. Negative results must becombined with clinical observations, patient history, andepidemiological information.This test has not been evaluated for monitoring treatment ofinfection.This test has been authorized by the FDA under an EmergencyUse Authorization (EUA) for use by authorized laboratories.Testing performed on the [employer] GeneXpert utilizingreal-time RT-PCR.All SARS CoV2 and positive influenza A/B results arereported to [facility]. 02/02/2025 11:5 6 AM EDT 02/02/2025 11:59 AM EDT us Generic External Data Provider LAB MICROBIOLOGY - GENERAL ORDERABLES Final Result Performing Organization Address [facility]/ZIP Co de Phone Number [facility] [address] [place] [phone] * TSH (02/02/2025 11:56 AM EDT) Thyroid Stimulating Hormone 0.42 0.32 - 4.0 uIU/mL [facility] Comment:TSH 3rd Generation ( [facility]) 02/02/2025 11:5 6 AM EDT 02/02/2025 11:59 AM EDT Generic External Data Provider LAB BLOOD ORDERAB LES Final Result Performing Organization Address [facility]/ZIP Co de Phone Number [facility] [address] [place] [phone] * Culture, Urine, Routine (02/02/2025 12:00 AM EDT) Urine Urine specimen obtained by clean catch procedure / Unknown 02/02/2025 02/02/2025 Comment:[facility] Narrative [facility] - 02/03/2025 11:15 AM EDT Urine Culture Report Result Urine Culture > 100,000 cfu/ml Urine Culture Mixed bacterial aunm characteristic of Urine Culture urogenital contamination. Specimen Source: Urine clean catch Generic External Data Provider LAB MICROBIOLOGY - GENERAL ORDERABLES Final Result Performing Organization Address City/[facility]/ZIP Co de Phone Number [facility] [address] [place] [phone] * (ABNORMAL) Hepatic Function Panel (01/28/2025 8:19 PM EDT) Bilirubin, Total 0.6 0.0 - 1.0 mg/dL [facility] Bilirubin, Direct 0.3 0.0 - 0.5 mg/dL [facility] Aspartate Amino Transferase 18 5 - 31 U/L [facility] Alanine Aminotransferase 13 0 - 31 U/L [facility] Total Protein 8.2(H) 6.5 - 8.0 g/dL [facility] Albumin Level 5.0 3.5 - 5.0 g/dL [facility] Alkaline Phosphatase 85 39 - 117 U/L [facility] 01/28/2025 8:19 PM EDT 01/28/2025 8:23 PM EDT Generic External Data Provider LAB BLOOD ORDERAB LES Final Result Performing Organization Address [facility]/ZIP Co de Phone Number [facility] [address] [place] [phone] * (ABNORMAL) Basic Metabolic Panel (01/28/2025 8:19 PM EDT) Sodium 138 135 - 145 mmol/L [facility] Potassium 3.5 3.3 - 5.1 mmol/L [facility] Chloride 99 96 - 108 mmol/L [facility] Carbon Dioxide 22 22 - 29 mmol/L [facility] Anion Gap 21(H) 12 - 20 [facility] Urea Nitrogen (BUN) 13 9 - 16 mg/dL [facility] Creatinine, Serum 0.71 0.5 - 1.4 mg/dL [facility] Creatinine Clr Calc Pharmacy 124.2 [facility] Comment:Provided height and weight: 167.64 cm,74.843 kg.eGFR (calculated from the MDRD study equation) and eCrCl(calculated from the Cockcroft-Gault equation) are based ondifferent parameters and may not yield comparable results.If eCrCl result is absurd, please check patient'sheight/weight. Estimated Glomerular Filt Rate >60 [facility] Comment:Chronic Kidney Disea se: Estimated GFR < 60 mL/min/1.03e6Wtuwwc Kidney Disease: Estimated GFR < 15 mL/min/1.73m2 Glucose 94 60 - 115 mg/dL [facility] Calcium 9.7 8.4 - 10.2 mg/dL [facility] 01/28/2025 8:19 PM EDT 01/28/2025 8:23 PM EDT us Generic External Data Provider LAB BLOOD ORDERAB LES Final Result [facility] [facility]S [address] [place] [address] [phone] * Chlamydia/N. Gonorrhoeae, PCR, Urine (12/09/2024 1:45 PM EDT) CT PCR, Urine NOT DETECTED Not Detect. [facility] Comment:A not detected test result does not exclude the possibilityof infection because test results can be affected byimproper specimen collection, concurrent antibiotic therapy,or the number of organisms in the specimen which may bebelow the sensitivity of the test. As with many diagnostictests, results from the Xpert CT/NG assay should beinterpreted in conjunction with other laboratory andclinical data available to the clinician.The Xpert CT/NG assay should not be used for the evaluationof suspected sexual abuse or for other medico-legalindications. Additional testing is recommended in anycircumstance when false positive or false negative resultscould lead to adverse medical, social or psychologicalconsequences. NG PCR, Urine NOT DETECTED Not Detect. [facility] Comment:A not detected test result does not exclude the possibilityof infection because test results can be affected byimproper specimen collection, concurrent antibiotic therapy,or the number of organisms in the specimen which may bebelow the sensitivity of the test. As with many diagnostictests, results from the Xpert CT/NG assay should beinterpreted in conjunction with other laboratory andclinical data available to the clinician.The Xpert CT/NG assay should not be used for the evaluationof suspected sexual abuse or for other medico-legalindications. Additional testing is recommended in anycircumstance when false positive or false negative resultscould lead to adverse medical, social or psychologicalconsequences. Urine (Urine, Random) 12/09/2024 1:45 PM EDT 12/09/2024 4:22 PM EDT us Vilma Casillas MD LAB URINE ORDERAB LES Final Result Performing Organization Address [facility] Co de Phone Number [facility] [address] [place] [address] [phone] * Syphilis Screen (12/07/2024 9:53 AM EDT) Syphilis Screen Nonreactive Nonreactive [facility] Blood 12/07/2024 9:53 AM EDT 12/07/2024 11:01 AM EDT Vilma Casillas MD LAB BLOOD ORDERAB LES Final Result Performing Organization Address [facility] Co de Phone Number [facility] [address] [place] [address] [phone] * TSH with Reflex to Free T4 (12/07/2024 9:53 AM EDT) TSH reflex Free T4 0.94 0.32 - 4.0 uIU/mL [facility] Blood 12/07/2024 9:53 AM EDT 12/07/2024 11:01 AM EDT us Vilma Casillas MD LAB BLOOD ORDERAB LES Final Result Performing Organization Address City/[facility]/ZIP Co de Phone Number [facility] [address] [place] [address] [phone] * Hepatitis C Antibody with Reflex to HCV, RNA, Quantitative, Real-Time PCR (12/07/2024 9:53 AM EDT) Pathologist [facility] Hepatitis C Antibody Nonreactive Nonreactive [facility] Comment:Antibodies to HCV no t detected; does not exclude early acuteHCV infection. Blood Venous blood specimen / Unknown 12/07/2024 9:53 AM EDT 12/07/2024 11:01 AM EDT us Vilma Casillas MD LAB BLOOD ORDERAB LES Final Result Performing Organization Address City/[facility]/ZIP Co de Phone Number [facility] [address] [place] [address] [phone] * (ABNORMAL) Iron And Total Iron Binding Capacity (12/07/2024 9:53 AM EDT) Pathologist [facility] Iron 24(L) 30 - 160 mcg/dL [facility] Total Iron Binding Capacity 229 228 - 428 mcg/dL [facility] Percent Iron Saturation 10(L) 15 - 50 % [facility] Unsaturated Iron Binding 205 ug/dL [facility] Blood Venous blood specimen / Unknown 12/07/2024 9:53 AM EDT 12/07/2024 11:01 AM EDT Vilma Casillas MD LAB BLOOD ORDERAB LES Final Result Performing Organization Address City/[facility]/ZIP Co de Phone Number [facility] [address] [place] [phone] * Hepatitis B surface antigen, EIA (12/07/2024 9:53 AM EDT) [facility] Hepatitis B Surface Ag Negative Negative [facility] Blood Venous blood specimen / Unknown 12/07/2024 9:53 AM EDT 12/07/2024 11:01 AM EDT us Vilma Casillas MD LAB BLOOD ORDERAB LES Final Result Performing Organization Address City/[facility]/ZIP Co de Phone Number [facility] [address] [place] [address] [phone] * Hepatitis B Core Antibody, Total (12/07/2024 9:53 AM EDT) [facility] Hepatitis B Core Antibody Nonreactive Nonreactive [facility] Blood Venous blood specimen / Unknown 12/07/2024 9:53 AM EDT 12/07/2024 11:01 AM EDT us Vilma Casillas MD LAB BLOOD ORDERAB LES Final Result Performing Organization Address City/[facility]/ZIP Co de Phone Number [facility] [address] [place] [address] [phone] * HIV-1/2 Antigen and Antibodies, Fourth Generation, with Reflexes (12/07/2024 9:53 AM EDT) [facility] HIV AB/AG Nonreactive Nonreactive [facility] Comment:HIV-1 p24 Ag and/or HIV-1/HIV-2 Ab not detected.A test result that is nonreactive does not exclude thepossibility of exposure to or infection with HIV-1 and/orHIV-2. Nonreactive results in this assay for individualswith prior exposure to HIV-1 and/or HIV-2 may be due toantigen and antibody levels that are below the limit ofdetection of this assay.The [employer]izard HIV Ag/Ab Combo assay result andsupplemental assay results should be interpreted inconjunction with the patient's clinical presentation,history and other laboratory results. If the results areinconsistent with clinical evidence, additional testing issuggested to confirm the result. Blood Venous blood specimen / Unknown 12/07/2024 9:53 AM EDT 12/07/2024 11:01 AM EDT Vilma Casillas MD LAB BLOOD ORDERAB LES Final Result Performing Organization Address City/[facility] Co de Phone Number [facility] [address] [place] [address] [phone] * Hepatitis B Surface Antibody, Qualitative (12/07/2024 9:53 AM EDT) [facility] ~Hepatitis B Surface Antibody REACTIVE Nonreactive [facility] Comment:REACTIVE: > 11.99 mI U/mL Blood Venous blood specimen / Unknown 12/07/2024 9:53 AM EDT 12/07/2024 11:01 AM EDT us Vilma Casillas MD LAB BLOOD ORDERAB LES Final Result Performing Organization Address [facility] de Phone Number [facility] [address] [place] [address] [phone] * (ABNORMAL) CBC (12/07/2024 9:53 AM EDT) [facility] White Blood Count 6.4 4.8 - 10.8 X10*3/uL [facility] Red Blood Count 4.65 4.20 - 5.50 X10*6/uL [facility] Hemoglobin 12.2 12.0 - 16.0 g/dl [facility] Hematocrit 38.4 37.0 - 47.0 % [facility] Mean Corpuscular Volume 82.6 80.0 - 98.0 fL [facility] Mean Corpuscular Hemoglobin 26.2(L) 27.0 - 33.0 pg [facility] Mean Corpuscular HGB Conc 31.8 31.0 - 35.0 g/dl [facility] Red Cell Distribution Width 13.3 11.0 - 16.0 % [facility] Platelet Count 201 160 - 400 X10*3/uL [facility] Mean Platelet Volume 12.8(H) 9.4 - 12.3 fL [facility] NRBC Pct Auto 0.0 0.0 - 0.2 /100WBC [facility] NRBC Abs Auto 0.000 0.0 - 0.012 X10*3/uL [facility] Blood Venous blood specimen / Unknown 12/07/2024 9:53 AM EDT 12/07/2024 11:05 AM EDT Vilma Casillas MD LAB BLOOD ORDERAB LES Final Result Performing Organization Address [facility]/ZIP Co de Phone Number [facility] [address] [place] [address] [phone] * Hemoglobin A1c (12/07/2024 9:53 AM EDT) Hemoglobin A1c 4.9 <6.0 % [facility] Comment:Hemoglobin A1C Refer ence Range Adults: 4.8 - 6.0 % Non diabetic: < 6.0 % Goal: < 7.0 %Additional Action Suggested: > 8.0 %Note: Hemoglobin A1c results are invalid for patients with abnormal amounts of HbF. Blood transfusions may impact the HbA1c concentration in the patient sample. Estimated Average Glucose 94 mg/dL [facility] Comment:eAG = Estimated ave rage glucose which is %A1C expressed asaverage glucose, using the formula of the K6S-JwiaedkWtdyfih Glucose study (ADAG), Diabetes Care, Vol.31,#8,2007 Blood Venous blood specimen / Unknown 12/07/2024 9:53 AM EDT 12/07/2024 11:05 AM EDT Vilma Casillas MD LAB BLOOD ORDERAB LES Final Result Performing Organization Address City/[facility]/ZIP Co de Phone Number [facility] [address] [place] [phone] * Ferritin (12/07/2024 9:53 AM EDT) Ferritin 55 10 - 122 ng/mL [facility] Blood Venous blood specimen / Unknown 12/07/2024 9:53 AM EDT 12/07/2024 11:01 AM EDT us Vilma Casillas MD LAB BLOOD ORDERAB LES Final Result [facility] [address] [place] [phone] * (ABNORMAL) Lipid Panel, Standard (12/07/2024 9:53 AM EDT) Triglycerides 65 <150 mg/dL [facility] Comment:Desirable Triglyceri de: less than 150 mg/dLBorderline High Triglyceride 150-199 mg/dLHigh Triglyceride: 200-499 mg/dLVery High Triglyceride: greater than or equal to 5OO mg/dL Cholesterol 119 <200 mg/dL [facility] Comment:Desirable Cholestero l: less than 200 mg/dLBorderline High Cholesterol: 200-239 mg/dLHigh Cholesterol: greater than 239 mg/dL LDL Cholesterol Calculated 72 <100 mg/dL [facility] Comment:Desirable LDL: less than 100 mg/dLNear Optimal/Above Optimal LDL: 110- 129 mg/dLBorderline High LDL: 130-159 mg/dLHigh LDL: 160-189 mg/dLVery High LDL: greater than or equal to 190 mg/dL HDL Cholesterol 34(L) >40 mg/dL [facility] Comment:Desirable HDL: great er than 40 mg/dL Note: This HDL assay may give artificially low results in patients with liver disease. Blood Venous blood specimen / Unknown 12/07/2024 9:53 AM EDT 12/07/2024 11:01 AM EDT us Vilma Casillas MD LAB BLOOD ORDERAB LES Final Result [facility] [address] [place] [phone] * Pap Smear (04/20/2023 11:21 AM EST) 04/20/2023 11:2 1 AM EST 04/21/2023 8:20 AM EST Narrative [facility] - 04/28/2023 1:41 PM EST ----- ------- Name: Flako Lai Age/Sex: 23/F : 2000 Unit#: [id number] Attend Dr: THELMA NEVES CNM Re04/20/23 Status: DEP [facility] ----- ------- SPEC : [id number] RECD: 04/21/23 STATUS: CARLENE YAN NUM: [id number] GUILHERME: 04/20/[address]: THELMA NEVES CNM ENTERED: 04/21/23 SP TYPE: Pap Smr OT DR: ORDERED: Pap Smear Interpretation Satisfactory for evaluation. Mild inflammation. Negative for intraepithelial lesion or malignancy. Clinical Information LMP: Unknown date Previous PAP test: Unknown date/findings Other history: Encounter screening for infections with sexual mode of transmission Material Received ThinPrep-Vaginal/Cervical ----- ------- Signed (signature on file) JOSEPH Patino ([facility]) 04/28/23 1341 ----- ------- END OF REPORT Thelma Neves [facility] CYTOLOGY ORDERABLES F inal Result [facility] [address] [place] [address] [phone] from Last 3 Months or Most Recently Relevant to Health Maintenance Insurance [facility] [employer] Care Teams Securities Broker Relationship Specialty Start Date End Date Vilma Rodriguez MD [address] [place] [phone] PCP - General Internal Medicine 12/12/24
--- OUTSIDE RECORDS SUMMARY | 2025-03-03 18:45 | XMS_ITS | Encounter Summary ---
Author Organization [employer] Address [address] [place] [address] Care Team Providers Care Senior Stock Plan Administrator Name Role Phone Vilma Woods MD Primary Care Provide r Vilma Rodriguez MD Primary Care Pro vider Encounter Details Date Type Department Care Team (Late st Contact Info) Description 04/18/2024 Telephone C OPTOMETRY [address] [place] [address] Padmini Thacker, OD [address] [place] [address] Social History Tobacco Use Types Packs/Day Years [...] documented in this encounter Plan of Treatment Upcoming Encounters Date Type Department Care Team (Late st Contact Info) Description 04/18/2025 1:00 PM EST Office Visit [facility] OPTOMETRY [address] [place], [place] [phone] Padmini Thacker, OD [address] [place] [phone] documented as of this encounter Visit Diagnoses Not on filedocumented in this encounter Care Teams Senior Stock Plan Administrator Relationship Specialty Start Date End Date Vilma Woods MD [address] [place], [place] [phone] PCP - General Family Medicine 06/09/18 08/04/24 Vilma Rodriguez MD [address] [place], [place] [phone] PCP - General Internal Medicine 12/12/24 documented as of this encounter
--- OUTSIDE RECORDS SUMMARY | 2025-03-03 18:45 | XMS_ITS | Clinical Summary ---
Author Organization 299 [facility] Address [address] [place] [phone] Phone Care Team Providers Care Manager Photography Name Role Phone Physician, Pcp Unknown Primary Care Provider Teresa vailable Allergies No known active allergies Medications No known medications Active Problems Estimated Date of Delivery Comme nts Yes 04/11/2025 No known active problems Encounters Date Type Department Care Team Description 03/01/2025 Lab Requisition [facility] - Main Lab [address] [facility] [place] [address] Melissa Ayala MD Encounter for screening, unspecified; Encounter for screening for infections with a predominantly sexual mode of transmission from Last 3 Months Surgical History Surgery Date Site/Laterality Comments OTHER [...] 3 - 3-dose series) 1998 1998, 1998, 1998 Pneumococcal Vaccine: Pediatrics (0 to 5 Years) and At-Risk Patients (6 to 49 Years) (1 of 2 - PCV) 2017 Social Influencers of Health Screening 02/08/2024 Depression Screening 06/15/2024 COVID-19 Vaccine ( season) 2025 06/06/2022, 03/19/2022, 02/14/2022 Influenza Vaccine (#1) 2025 , 04/26/2020, 04/16/2017, Additional history exists RSV Immunization Adult Patients (1 - Risk 1-dose series) 02/14/2025 Cervical Cancer Screening: Pap Smear 09/15/2027 09/14/2024, 04/20/2023 Cholesterol Screening (Lipid Panel) 12/07/2029 12/07/2024 DTaP,Tdap,and Td Vaccines (8 - Td or Tdap) 08/30/2030 08/30/2020, 12/02/2011, 09/06/2002, Additional history exists HIB Vaccines Completed 05/24/1999, 08/1998, 1998, Additional history exists IPV Vaccines Completed 09/06/2002, 12/1998, 1998, Additional history exists HPV Vaccines Completed 02/24/2011, 04/16, 03/04/2010 Meningococcal ACWY Vaccine Aged Out 12/02/2011 N o longer eligible based on patient's age to complete this topic Gonorrhea/Chlamydia Screening Discontinued 03/01/2025, 09/15/2024, 09/14/2024 HIV Screening Completed 03/01/2025, 12/07/2024 Hepatitis C Screening Completed 03/01/2025, 025 Hepatitis A Vaccines Aged Out No long er eligible based on patient's age to complete this topic Meningococcal B Vaccine Aged Out No l onger eligible based on patient's age to complete this topic RSV Immunization Patients Under 20 months Aged Out No longer eligible based on patient's age to complete this topic Procedures Procedure Name Priority Date/Time Associated Diagnosis Comments CBC WITH AUTO DIFFERENTIAL Routine 03/01/2025 10:52 AM EDT First trimester screening VARICELLA ZOSTER ANTIBODY IGG Routine 03/01/2025 10:52 AM EDT First trimester screening HIV 1, 2 ANTIBODY, P24 ANTIGEN WITH REFLEX TO DIFFERENTIATION Routine 03/01/2025 10:52 AM EDT First trimester screening HEPATITIS C ANTIBODY Routine 03/01/2025 10:52 AM EDT First trimester screening TYPE AND SCREEN Routine 03/01/2025 10:52 AM EDT First trimester screening CBC AND DIFFERENTIAL Routine 03/01/2025 10:52 AM EDT First trimester screening HEPATITIS B SURFACE ANTIGEN WITH CONFIRMATION Routine 03/01/2025 10:52 AM EDT First trimester screening TREPONEMA PALLIDUM ANTIBODY WITH REFLEX TO RPR AND PARTICLE AGGLUTINATION Routine 03/01/2025 10:52 AM EDT First trimester screening RUBELLA ANTIBODY IGG Routine 03/01/2025 10:52 AM EDT First trimester screening URINALYSIS WITH REFLEX MICROSCOPIC Routine 03/01/2025 12:00 AM EDT Encounter for screening, unspecified Encounter for screening for infections with a predominantly sexual mode of transmission DRUG ABUSE SCREEN 8A PANEL, URINE Routine 03/01/2025 12:00 AM EDT Encounter for screening, unspecified Encounter for screening for infections with a predominantly sexual mode of transmission URINALYSIS WITH REFLEX MICROSCOPIC Routine 03/01/2025 12:00 AM EDT Encounter for screening, unspecified Encounter for screening for infections with a predominantly sexual mode of transmission CULTURE URINE Routine 03/01/2025 12:00 AM EDT Encounter for screening, unspecified Encounter for screening for infections with a predominantly sexual mode of transmission CHLAMYDIA TRACHOMATIS AND NEISSERIA GONORRHOEAE PCR Routine 03/01/2025 12:00 AM EDT Encounter for screening, unspecified Encounter for screening for infections with a predominantly sexual mode of transmission PAP SMEAR Routine 09/14/2024 12:00 AM EDT Encounter for gynecological examination (general) (routine) without abnormal findings from Last 3 Months or Most Recently Relevant to Health Maintenance Results * Hepatitis C antibody (03/01/2025 10:52 AM EDT) [facility] Hepatitis C Antibody Negative Negative LAB CHEMISTRY METHOD 03/01/2025 2:13 PM EDT [facility] Blood Venous blood specimen / Unknown Venipuncture / Unknown 03/01/2025 10:52 AM EDT 03/01/2025 11:37 AM EDT us Melissa Ayala MD LAB BLOOD ORDERABLES Fin al Result [facility] [address] [place] [address], * HIV 1,2 antibody, p24 antigen with reflex to differentiation (03/01/2025 10:52 AM EDT) [facility] HIV Combo AB/AG Negative Negative LAB CHEMISTRY METHOD 03/01/2025 1:42 PM EDT [facility] Blood Venous blood specimen / Unknown Venipuncture / Unknown 03/01/2025 10:52 AM EDT 03/01/2025 11:[address] [facility] - 03/01/2025 1:42 PM EDT This assay is a 4th generation assay allowing for earlier detection of HIV infection by detecting the presence of the HIV-1 p24 antigen as well as the traditional antibodies to HIV type 1 (including group O) and type 2. Use of a 4th generation assay is the current CDC recommendation for HIV screening. us Melissa Ayala MD LAB BLOOD ORDERABLES Fin al Result Performing Organization Address [facility] de Phone Number [facility] [address] [place] [address], [place] [phone] * Hepatitis B surface antigen with reflex to confirmation (03/01/2025 10:52 AM EDT) Hepatitis B Surface Ag Negative Negative LAB CHEMISTRY METHOD 03/01/2025 1:13 PM EDT [facility] Blood Venous blood specimen / Unknown Venipuncture / Unknown 03/01/2025 10:52 AM EDT 03/01/2025 11:[address] [facility] - 03/01/2025 1:13 PM EDT Over the counter supplements containing high doses of biotin may interfere with this assay. If interference is suspected, patients shoud be retested after refraining from biotin supplements for 72 hours. us Melissa Ayala MD LAB BLOOD ORDERABLES Fin al Result Performing Organization Address [facility] Co de Phone Number [facility] [address] [place] [address], [place] [phone] * Treponema pallidum antibody with reflex to RPR and particle agglutination (03/01/2025 10:52 AM EDT) [facility] T. Pallidum Antibodies Negative Negative LAB CHEMISTRY METHOD 03/01/2025 2:45 PM EDT [facility] Blood Venous blood specimen / Unknown Venipuncture / Unknown 03/01/2025 10:52 AM EDT 03/01/2025 11:37 AM EDT us Melissa Ayala MD LAB BLOOD ORDERABLES Fin al Result [facility] [address] [place] [address], * (ABNORMAL) CBC auto differential (03/01/2025 10:52 AM EDT) [facility] WBC 7.2 4.8 - 10.8 K/mcL LAB HEMETOLOGY METHOD 03/01/2025 11:51 AM [facility] RBC 4.50 3.80 - 4.80 M/[facility] LAB HEMETOLOGY METHOD 03/01/2025 11:51 AM [facility] Hemoglobin 12.0 11.5 - 16.0 g/dL LAB HEMETOLOGY METHOD 03/01/2025 11:51 AM [facility] Hematocrit 36.5 35.0 - 47.0 % LAB HEMETOLOGY METHOD 03/01/2025 11:51 AM [facility] MCV 80.6 79.0 - 98.0 FL LAB HEMETOLOGY METHOD 03/01/2025 11:51 AM [facility] MCH 26.5(L) 27.0 - 32.0 pcg LAB HEMETOLOGY METHOD 03/01/2025 11:51 AM [facility] MCHC 32.9 32.0 - 37.0 g/dL LAB HEMETOLOGY METHOD 03/01/2025 11:51 AM [facility] RDW 14.0 11.0 - 15.0 % LAB HEMETOLOGY METHOD 03/01/2025 11:51 AM [facility] Platelets 215 130 - 400 K/mcL LAB HEMETOLOGY METHOD 03/01/2025 11:51 AM [facility] MPV 10.9 7.0 - 11.0 FL LAB HEMETOLOGY METHOD 03/01/2025 11:51 AM [facility] NRBC 0.0 <1.0 % LAB HEMETOLOGY METHOD 03/01/2025 11:51 AM [facility] NRBC Absolute 0.00 <0.10 K/mcL LAB HEMETOLOGY METHOD 03/01/2025 11:51 AM [facility] Neutrophils Relative 66.8 % LAB HEMETOLOGY METHOD 03/01/2025 11:51 AM [facility] Lymphocytes Relative 27.7 % LAB HEMETOLOGY METHOD 03/01/2025 11:51 AM [facility] Monocytes Relative 4.1 % LAB HEMETOLOGY METHOD 03/01/2025 11:51 AM [facility] Eosinophils Relative 0.6 % LAB HEMETOLOGY METHOD 03/01/2025 11:51 AM [facility] Basophils Relative 0.4 % LAB HEMETOLOGY METHOD 03/01/2025 11:51 AM [facility] Immature Granulocytes Relative 0.4 % LAB HEMETOLOGY METHOD 03/01/2025 11:51 AM [facility] Neutrophils Absolute 4.79 1.50 - 7.00 K/mcL LAB HEMETOLOGY METHOD 03/01/2025 11:51 AM [facility] Lymphocytes Absolute 1.98 1.00 - 5.00 K/mcL LAB HEMETOLOGY METHOD 03/01/2025 11:51 AM [facility] Monocytes Absolute 0.29 0.20 - 1.00 K/mcL LAB HEMETOLOGY METHOD 03/01/2025 11:51 AM EDT [facility] Eosinophils Absolute 0.04 0.00 - 0.50 [facility] HEMETOLOGY METHOD 03/01/2025 11:51 AM EDT [facility] Basophils Absolute 0.03 0.00 - 0.20 [facility] LAB HEMETOLOGY METHOD 03/01/2025 11:51 AM EDT [facility] Immature Granulocytes Absolute 0.03 0.00 - 0.03 K/mcL LAB HEMETOLOGY METHOD 03/01/2025 11:51 AM EDT [facility] Blood Venous blood specimen / Unknown Venipuncture / Unknown 03/01/2025 10:52 AM EDT 03/01/2025 11:38 AM EDT Melissa Ayala MD LAB BLOOD ORDERABLES Fin al Result [facility] [address] [place] [address], * Rubella antibody IgG (03/01/2025 10:52 AM EDT) Rubella IgG Quant 42.0 >=10.0 I Unit/mL LAB CHEMISTRY METHOD 03/01/2025 1:12 PM EDT [facility] Rubella IgG Antibody Interp Positive Positive LAB CHEMISTRY METHOD 03/01/2025 1:12 PM EDT [facility] Blood Venous blood specimen / Unknown Venipuncture / Unknown 03/01/2025 10:52 AM EDT 03/01/2025 11:37 AM EDT us Melissa Ayala MD LAB BLOOD ORDERABLES Fin al Result [facility] [address] [place] [address], [place] [phone] * Type and screen (03/01/2025 10:52 AM EDT) ABO Group A 03/01/2025 12:34 PM EDT [facility] Rh Type Positive 03/01/2025 12:34 PM EDT [facility] Antibody Screen Negative 03/01/2025 12:34 PM EDT [facility] Blood Venous blood specimen / Unknown Venipuncture / Unknown 03/01/2025 10:52 AM EDT 03/01/2025 11:36 AM EDT Melissa Ayala MD LAB BLOOD BANK TEST ORDE RABLES Final Result [facility] [address] [place] [address], [place] [phone] * Varicella zoster antibody IgG (03/01/2025 10:52 AM EDT) [facility] Varicella IgG Positive Positive LAB CHEMISTRY METHOD 03/01/2025 1:50 PM EDT [facility] Varicella Zoster IgG 2.35 >=1.00 S/CO LAB CHEMISTRY METHOD 03/01/2025 1:50 PM EDT [facility] Blood Venous blood specimen / Unknown Venipuncture / Unknown 03/01/2025 10:52 AM EDT 03/01/2025 11:37 AM EDT Narrative [facility] - 03/01/2025 1:50 PM EDT Interpretation >= 1.00 S/CO is considered to be consistent with Immunity us Melissa Ayala MD LAB BLOOD ORDERABLES Fin al Result [facility] [address] [place] [address], [place] [phone] * (ABNORMAL) Urinalysis with reflex microscopic (03/01/2025 12:00 AM EDT) Specific [place] Urine 1.024 1.003 - 1.030 LAB URINALYSIS - AUTOMATED METHOD 03/01/2025 2:20 PM [facility] pH, Urine 6.5 5.0 - 8.0 pH LAB URINALYSIS - AUTOMATED METHOD 03/01/2025 2:20 PM [facility] Leukocytes, Urine Small(A) Negative LAB URINALYSIS - AUTOMATED METHOD 03/01/2025 2:20 PM [facility] Nitrite, Urine Negative Negative LAB URINALYSIS - AUTOMATED METHOD 03/01/2025 2:20 PM [facility] Protein, Urine 30(A) <=Trace mg/dL LAB URINALYSIS - AUTOMATED METHOD 03/01/2025 2:20 PM [facility] Glucose, Urine Negative Negative mg/dL LAB URINALYSIS - AUTOMATED METHOD 03/01/2025 2:20 PM [facility] Ketones, Urine Trace(A) Negative mg/dL LAB URINALYSIS - AUTOMATED METHOD 03/01/2025 2:20 PM [facility] Urobilinogen , Urine 1.0 0.2 - 1.0 mg/dL LAB URINALYSIS - AUTOMATED METHOD 03/01/2025 2:20 PM [facility] Bilirubin, Urine Negative Negative LAB URINALYSIS - AUTOMATED METHOD 03/01/2025 2:20 PM [facility] Blood, Urine Negative Negative LAB URINALYSIS - AUTOMATED METHOD 03/01/2025 2:20 PM [facility] RBC, Urine 0.0 0 - 4 /HPF LAB URINALYSIS - AUTOMATED METHOD 03/01/2025 2:20 PM [facility] WBC, Urine 8.4(H) 0 - 4 /HPF LAB URINALYSIS - AUTOMATED METHOD 03/01/2025 2:20 PM EDT [facility] Squamous Epithelial, Urine >100(H) 0 - 60 /LPF LAB URINALYSIS - AUTOMATED METHOD 03/01/2025 2:20 PM EDT [facility] Bacteria, Urine Few(A) Negative /HPF LAB URINALYSIS - AUTOMATED METHOD 03/01/2025 2:20 PM EDT [facility] Hyaline Casts, Urine 2.0 0 - 3 /LPF LAB URINALYSIS - AUTOMATED METHOD 03/01/2025 2:20 PM EDT [facility] Mucus, Urine Moderate None /HPF LAB URINALYSIS - AUTOMATED METHOD 03/01[facility]25 [facility] Yeast, Urine Present(A) None /HPF LAB URINALYSIS - AUTOMATED METHOD 03/01/2025 2:20 PM EDT [facility] Urine Urine specimen obtained by clean catch procedure / Unknown 03/01/2025 03/01/2025 1:29 PM EDT us Melissa Ayala MD LAB URINE ORDERABLES Fin al Result [facility] [address] [place] [address], * (ABNORMAL) Drug abuse screen 8a panel, urine (03/01/2025 12:00 AM EDT) Amphetamine Screen, Ur Negative Negative LAB CHEMISTRY METHOD 2:08 PM EDT [facility] Comment:Certain OTC medicati ons containing ephedrine, phenylephrine, pseudoephedrine and phenylpropanolamine can cause false positive results. Barbiturate Screen, Ur Negative Negative LAB CHEMISTRY METHOD 2:08 PM EDT [facility] Benzodiazepine Screen, Ur Negative Negative LAB CHEMISTRY METHOD 5 2:08 PM EDT [facility] Cocaine Screen, Ur Negative Negative LAB CHEMISTRY METHOD 5 2:08 PM EDT [facility] Opiate Screen, Ur Negative Negative LAB CHEMISTRY METHOD 5 2:08 PM EDT [facility] Cannabinoid (THC) Screen, Ur Positive(A ) Negative LAB CHEMISTRY METHOD 5 2:08 PM EDT [facility] Comment:Specimens from patie nts taking pantoprazole sodium (Protonix) have been shown to produce false positive results. Oxycodone Screen, Ur Negative Negative LAB CHEMISTRY METHOD 5 2:08 PM EDT [facility] Fentanyl, Ur Negative Negative LAB CHEMISTRY METHOD 5 2:08 PM T [facility] Urine Urine specimen obtained by clean catch procedure / Unknown 03/01/2025 03/01/2025 1:29 PM EDT Narrative [facility] - 03/01/2025 2:08 PM EDT Assay cutoffs: Amphetamines 1000 ng/mL Barbiturates 200 ng/mL Benzodiazepines 200 ng/mL Cocaine 300 ng/mL Fentanyl 1 ng/mL Opiates 300 ng/mL Oxycodone 100 ng/mL THC 50 ng/mL Semi-quantitative assay for screening purposes only. Unconfirmed screening result should not be used for non-medical purposes. *ALTERNATE METHOD CONFIRMATION DONE UPON REQUEST ONLY* us Melissa Ayala MD LAB URINE ORDERABLES Fin al Result [facility] [address] [place] [address], * Chlamydia trachomatis and Neisseria gonorrhoeae molecular study (03/01/2025 12:00 AM EDT) Neisseria gonorrhoeae PCR Negative Negative LAB MOLECULAR DIAGNOSTICS METHOD 03/03/2025 1:17 PM EDT [facility] Chlamydia trachomatis PCR Negative Negative LAB MOLECULAR DIAGNOSTICS METHOD 03/03/2025 1:17 PM EDT [facility] Swab Cervix uteri structure / Unknown 03/01/2025 03/01/2025 1:29 PM EDT Melissa Ayala MD LAB MICROBIOLOGY - GENER AL ORDERABLES Final Result Performing Organization Address City/[facility]/ZIP Co de Phone Number [facility] [address] [place] [address], [place] [phone] * Culture urine (03/01/2025 12:00 AM EDT) Culture, Urine <10,000 cfu/mL Mixed bacterial anum 03/02/2025 8:50 AM EDT [facility] Urine Urine specimen obtained by clean catch procedure / Unknown 03/01/2025 03/01/2025 1:29 PM EDT us Melissa Ayala MD LAB MICROBIOLOGY - GENER AL ORDERABLES Final Result Performing Organization Address City/[facility]/ZIP Co de Phone Number [facility] [address] [place] [address], [place] [phone] * Pap smear (09/14/2024 12:00 AM EDT) Interpretation Negative for intraepithelial lesion or malignancy 09/16/2024 10:01 AM EDT [facility] General Categorization Negative 09/16/2024 10:01 AM EDT [facility] Specimen Adequacy Satisfactory for evaluation, endocervical/elias sformation zone component absent 09/16/2024 10:01 AM EDT [facility] Pap Methodology Liquid Based Pap Test 09/16/2024 10:01 AM EDT [facility] Disclaimer The Pap test is a screening test which carries an inherent false negative rate. These test results should be correlated with the patient's clinical findings and history. This Pap test was processed using an automated screening system. Technical cytopathology services provided by [facility], at [address] [place] [address] (CLIA # [id number]/Alexx Madsen MD, Hide Buffer.) 09/16/2024 10:01 AM EDT [facility] Console Pap Interpretation Reported 09/16/2024 10:01 AM EDT [facility] Brushing/Spatula Cervix uteri structure / Unknown 09/14/2024 09/14/2024 3:31 PM EDT us Melissa Ayala MD LAB CYTOLOGY ORDERABLES Final Result [facility] [address] [place] [address], from Last 3 Months or Most Recently Relevant to Health Maintenance Insurance MEDICAID - [place] Care Teams Manager Photography Relationship Specialty Start Date End Date Physician, Pcp Unknown PCP - General 09/14/24
--- OUTSIDE RECORDS SUMMARY | 2025-03-03 18:45 | XMS_ITS | Encounter Summary ---
Author Organization [employer] Address [address] [place] [address] Care Team Providers Care Outreach Manager Name Role Phone Physician, Pcp Unknown Primary Care Provider Teresa vailable Encounter Details Date Type Department Care Team (Latest Contact Info) Description 03/01/2025 Lab Requisition [facility] - Main Lab [address] [facility] [place] [address] Melissa Ayala MD 299 [facility] [address] [place] [address] Encounter for screening, unspecified; Encounter [...] on file documented as of this encounter Functional Status * Are you deaf or do you have serious difficulty hearing? Answer Date of Assessment Author No 09/15/2024 3:04 AM EDT Jason, Juli Bullard RN * Are you blind or do you have serious difficulty seeing, even when wearing glasses? Answer Date of Assessment Author No 09/15/2024 3:04 AM Juli Pradhan RN * Do you have serious difficulty walking or climbing stairs? Answer Date of Assessment Author No 09/15/2024 3:04 AM EDRobert Gomez, Juli Bullard RN * Do you have serious difficulty dressing or bathing? Answer Date of Assessment Author No 09/15/2024 3:04 AM EDT Doles, As alysa Bullard RN * Because of a physical, mental, or emotional condition, do you have serious difficulty doing errandsalone such as visiting the doctor? Answer Date of Assessment Author No 09/15/2024 3:04 AM EDT Doles, As alysa Bullard RN documented as of this encounter Mental Status * Because of a physical, mental, or emotional condition, do you have serious difficulty concentrating, remembering, or making decisions? (5 years old or older) Answer Entry Date Author No 09/15/2024 3:04 AM EDT Doles, As alysa Bullard RN documented in this encounter Plan of Treatment Not on file documented as of this encounter Procedures Procedure Name Priority Date/Time Associated Diagnosis Comments URINALYSIS WITH REFLEX MICROSCOPIC Routine 03/01/2025 12:00 [...] Results * (ABNORMAL) Urinalysis with reflex microscopic (03/01/2025 12:00 AM EDT) [facility] [place] Urine 1.024 1.003 - 1.030 LAB URINALYSIS - AUTOMATED METHOD 03/01/2025 2:[address] [facility] pH, Urine 6.5 5.0 - 8.0 pH LAB URINALYSIS - AUTOMATED METHOD 03/01/2025 2:[address] [facility] Leukocytes, Urine Small(A) Negative LAB URINALYSIS - AUTOMATED METHOD 03/01/2025 2:[address] [facility] Nitrite, Urine Negative Negative LAB URINALYSIS - AUTOMATED METHOD 03/01/2025 2:[address] [facility] Protein, Urine 30(A) <=Trace mg/dL LAB URINALYSIS - AUTOMATED METHOD 03/01/2025 2:[address] [facility] Glucose, Urine Negative Negative mg/dL LAB URINALYSIS - AUTOMATED METHOD 03/01/2025 2:[address] [facility] Ketones, Urine Trace(A) Negative mg/dL LAB URINALYSIS - AUTOMATED METHOD 03/01/2025 2:[address] [facility] Urobilinogen , Urine 1.0 0.2 - 1.0 mg/dL LAB URINALYSIS - AUTOMATED METHOD 03/01/2025 2:[address] [facility] Bilirubin, Urine Negative Negative LAB URINALYSIS - AUTOMATED METHOD 03/01/2025 2:[address] [facility] Blood, Urine Negative Negative LAB URINALYSIS - AUTOMATED METHOD 03/01/2025 2:[address] [facility] RBC, Urine 0.0 0 - 4 /HPF LAB URINALYSIS - AUTOMATED METHOD 03/01/2025 2:[address] [facility] WBC, Urine 8.4(H) 0 - 4 /HPF LAB URINALYSIS - AUTOMATED METHOD 03/01/2025 2:[address] [facility] Squamous Epithelial, Urine >100(H) 0 - 60 /LPF LAB URINALYSIS - AUTOMATED METHOD 03/01/2025 2:[address] [facility] Bacteria, Urine Few(A) Negative /HPF LAB URINALYSIS - AUTOMATED METHOD 03/01/2025 2:20 PM EDT [facility] Hyaline Casts, Urine 2.0 0 - 3 /LPF LAB URINALYSIS - AUTOMATED METHOD 03/01/2025 2:20 PM EDT [facility] Mucus, Urine Moderate None /HPF LAB URINALYSIS - AUTOMATED METHOD 03/01/2025 2:20 PM EDT [facility] Yeast, Urine Present(A) None /HPF LAB URINALYSIS - AUTOMATED METHOD 03/01/2025 2:20 PM EDT [facility] Urine Urine specimen obtained by clean catch procedure / Unknown 03/01/2025 03/01/2025 1:29 PM EDT us Melissa Ayala MD LAB URINE ORDERABLES Fin al Result [facility] [address] [place] [address], * (ABNORMAL) Drug abuse screen 8a panel, urine (03/01/2025 12:00 AM EDT) Amphetamine Screen, Ur Negative Negative LAB CHEMISTRY METHOD 5 2:08 PM EDT [facility] Comment:Certain OTC medicati ons containing ephedrine, phenylephrine, pseudoephedrine and phenylpropanolamine can cause false positive results. Barbiturate Screen, Ur Negative Negative LAB CHEMISTRY METHOD 5 2:08 PM EDT [facility] Benzodiazepine Screen, Ur Negative Negative LAB CHEMISTRY METHOD 5 2:08 PM EDT [facility] Cocaine Screen, Ur Negative Negative LAB CHEMISTRY METHOD 5 2:08 PM EDT [facility] Opiate Screen, Ur Negative Negative LAB CHEMISTRY METHOD 5 2:08 PM EDT [facility] Cannabinoid (THC) Screen, Ur Positive(A ) Negative LAB CHEMISTRY METHOD 2:08 PM EDT [facility] Comment:Specimens from patie nts taking pantoprazole sodium (Protonix) have been shown to produce false positive results. Oxycodone Screen, Ur Negative Negative LAB CHEMISTRY METHOD 5 2:08 PM EDT [facility] Fentanyl, Ur Negative Negative LAB CHEMISTRY METHOD 5 2:08 PM EDT [facility] Urine Urine specimen obtained by clean catch procedure / Unknown 03/01/2025 03/01/2025 1:29 PM EDT Narrative [facility] - 03/01/2025 2:08 PM EDT [...] MD LAB URINE ORDERABLES Fin al Result Performing Organization Address [facility]/ZIP Co de Phone Number [facility] [address] [place] [address], * Culture urine (03/01/2025 12:00 AM EDT) Culture, Urine <10,000 cfu/mL Mixed bacterial anum 03/02/2025 8:50 AM EDT [facility] Urine Urine specimen obtained by clean catch procedure / Unknown 03/01/2025 03/01/2025 1:29 PM EDT us Melissa Ayala MD LAB MICROBIOLOGY - GENER AL ORDERABLES Final Result [facility] [address] [place] [address], [place] [phone] * Chlamydia trachomatis and Neisseria gonorrhoeae molecular study (03/01/2025 12:00 AM EDT) Neisseria gonorrhoeae PCR Negative Negative LAB MOLECULAR DIAGNOSTICS METHOD 03/03/2025 1:17 PM EDT [facility] Chlamydia trachomatis PCR Negative Negative LAB MOLECULAR DIAGNOSTICS METHOD 03/03/2025 1:17 PM EDT [facility] Swab Cervix uteri structure / Unknown 03/01/2025 03/01/2025 1:29 PM EDT us Melissa Ayala MD LAB MICROBIOLOGY - GENER AL ORDERABLES Final Result [facility] [address] [place] [address], documented in this encounter Visit Diagnoses Diagnosis Encounter for screening, unspecified Encounter for screening for infections with a predominantly sexual mode of transmission documented in this encounter Care Teams Outreach Manager Relationship Specialty Start Date End Date Physician, Pcp Unknown PCP - General 09/14/24 documented as of this encounter
--- OUTSIDE RECORDS SUMMARY | 2025-03-03 18:45 | XMS_ITS | Encounter Summary ---
Author Organization [employer] Address [address] [place] [address] [address] [place] [address] Care Team Providers Care Director Of Purchasing Name Role Phone Vilma Rodriguez MD Primary Care Pro vider Encounter Details Date Type Department Care Team ([facility] st Contact Info) Description 02/02/2025 Results Follow-Up [facility] [address] [place] [address] Vilma Rodriguez MD [address] [place] [address] CBC auto differential, Hepatic Function Panel, Basic Metabolic Panel, Additional followed-up results: 7 Social History Tobacco Use Types Packs/Day Years [...] as of this encounter Miscellaneous Notes * Result Encounter Note - Vilma Casillas MD - 02/02/2025 12:31 PM EDT Labs done by outside provider documented in this encounter Plan of Treatment Upcoming Encounters Date Type Department Care Team (Late st Contact Info) Description 04/18/2025 1:00 PM EST Office Visit [facility] [address] [place] [address] Kedar, Padmini, OD [address] [place] [address] documented as of this encounter Visit Diagnoses Not on filedocumented in this encounter Additional Health Concerns Assessment Noted Time PHQ-9 Depression Total Score: 0 12/08/19 25 9:20 AM EDT documented as of this encounter Care Teams Director Of Purchasing Relationship Specialty Start Date End Date Vilma Rodriguez MD [address] [place] [address] PCP - General Internal Medicine 12/12/24 documented as of this encounter
--- OUTSIDE RECORDS SUMMARY | 2025-03-03 18:45 | XMS_ITS | Encounter Summary ---
Author Organization [employer] Address [address] [place] [address] 7 [place] [address] Care Team Providers Care Merchandise Flow Manager Name Role Phone Vilma Rodriguez MD Primary Care Pro vider Reason for Visit * Reason Onset Date Comments Referral 02/07/2025 Encounter Details Date Type Department Care Team ([facility] st Contact Info) Description 02/07/2025 Telephone [facility] [address] [place] [address] Vilma Rodriguez MD [address] [place] [address] Referral Social History Tobacco Use Types Packs/Day Years [...] encounter Miscellaneous Notes * Telephone Encounter - Sagar Lara - 02/07/2025 2:35 PM EDT Tc from pt requesting a referral for OBGYN to be sent to [facility]. In the referral it also needs to show proof of . Any questions contact pt at [phone] documented in this encounter Plan of Treatment Upcoming Encounters Date Type Department Care Team (Late st Contact Info) Description 04/18/2025 1:00 PM EST Office Visit [facility] [address] [place] [address] Kedar, Padmini, OD [address] [place] [address] documented as of this encounter Visit Diagnoses Not on filedocumented in this encounter Additional Health Concerns Assessment Noted Time PHQ-9 Depression Total Score: 0 12/08/19 9:20 AM EDT documented as of this encounter Care Teams Merchandise Flow Manager Relationship Specialty Start Date End Date Vilma Rodriguez MD [address] [place] [address] PCP - General Internal Medicine 12/12/24 documented as of this encounter
--- OUTSIDE RECORDS SUMMARY | 2025-03-03 18:45 | XMS_ITS | Encounter Summary ---
Author Organization [facility] Address [address] [place] [address] Care Team Providers Care Front Line Leader Name Role Phone Physician, Pcp Unknown Primary Care Provider Teresa vailable Encounter Details Date Type Department Care Team (Latest Contact Info) Description 09/14/[address] [facility] - Main Lab 299 [facility] [email or web address] [address] Melissa Ayala MD [address] [address] Encounter for gynecological examination (general) (routine) without abnormal findings Social History Tobacco Use Types Packs/Day Years [...] Procedure Name Priority Date/Time Associated Diagnosis Comments PAP SMEAR Routine 09/14/2024 12:00 AM EDT Encounter for gynecological examination (general) (routine) without abnormal findings documented in this encounter Results * Pap smear (09/14/2024 12:00 AM EDT) Interpretation Negative for intraepithelial lesion or malignancy 09/16/2024 10:01 AM EDT [facility] General Categorization Negative 09/16/2024 10:01 AM [facility] Specimen Adequacy Satisfactory for evaluation, endocervical/elias sformation zone component absent [facility] Pap Methodology Liquid Based Pap Test 09/16/2024 10:01 AM EDT [facility] Disclaimer The Pap test is a screening test which carries an inherent false negative rate. These test results should be correlated with the patient's clinical findings and history. This Pap test was processed using an automated screening system. Technical cytopathology services provided by [facility], at [address] [place] [id number] (CLIA # [id number]/Alexx Madsen MD, Administration Dean.) 09/16/2024 10:01 AM [facility] Console Pap Interpretation Reported 09/16/2024 10:01 AM [facility] Brushing/Spatula Cervix uteri structure / Unknown 09/14/2024 09/14/2024 3:31 PM EDT us Melissa Ayala MD LAB CYTOLOGY ORDERABLES Final Result [facility] [address] [place] [address], documented in this encounter Visit Diagnoses Diagnosis Encounter for gynecological examination (general) (routine) without abnormal findings documented in this encounter Care Teams Front Line Leader Relationship Specialty Start Date End Date Physician, Pcp Unknown PCP - General 09/14/24 documented as of this encounter
[2025-03-03 19:00] VITALS: BP 110/68; PULSE 96; RESP 18; O2SAT 100
--- NOTE | 2025-03-03 19:08 | ED.NAVMDI ---
HPI - Nausea/Vomiting/Diarrhea General Chief complaint: Nausea/Vomiting/Diarrhea Stated complaint: Nausea Vomiting 10 Wks Preg Time Seen by Provider: 03/03/25 18:51 Related Data Previous Rx's ?Medication ?Instructions ?Recorded pyridoxine (vitamin B6) 25 mg 25 mg PO BID 30 days #60 tabs 03/29/20 tablet azithromycin 500 mg tablet 1,000 mg (2 x 500 mg) PO DAILY 1 04/27/20 day #2 tabs metronidazole 500 mg tablet 500 mg PO BID 7 days #14 tabs 04/27/20 (Flagyl) vitamins with calcium 1 tab PO DAILY #30 tabs 08/30/20 no.72-iron 29 mg-folic acid 1 mg tablet ( Plus) fluconazole 150 mg tablet 150 mg PO Q3D 2 doses #2 tabs 09/28/20 fluconazole 150 mg tablet 150 mg PO ONCE #1 tab 10/02/20 metronidazole 500 mg tablet 500 mg PO BID #10 tabs 10/02/20 doxylamine succinate 25 mg tablet 25 mg PO DAILY #30 tabs 01/29/25 (Unisom (doxylamine)) metoclopramide HCl 10 mg tablet 10 mg PO Q6H PRN nausea and 01/29/25 (Reglan) vomiting #30 tabs pyridoxine (vitamin B6) 25 mg 25 mg PO BID #60 tabs 01/29/25 tablet cephalexin 500 mg capsule 500 mg PO TID 7 days #21 caps 02/02/25 ondansetron HCl 4 mg tablet 4 mg PO Q8H PRN nausea and 02/02/25 vomiting #12 tabs promethazine 12.5 mg rectal 12.5 mg AR Q6H PRN nausea and 02/02/25 suppository vomiting #12 ea Allergies Allergy/AdvReac Type Severity Reaction Status Date / Time clarithromycin (From BIAXIN) AdvReac Intermediate NAUSEA & Verified 03/03/25 15:26 VOMITING PMFSH Past Medical History Medical History History of marijuana use Umbilical cyst Umbilical pain History of asthma Family History Family History Mother No problems noted. Father No problems noted. Maternal Grandmother Hx of diabetes mellitus Maternal Grandfather No problems noted. Paternal Grandmother No problems noted. Paternal Grandfather No problems noted. Brother History of epilepsy Sister History of asthma Social History Social History Household Members: Family Alcohol intake: never Smoked in Last 30 Days: No Use of substances other than those prescribed or required for medical reasons: No Advance Directives: No Advance Directives Information Provided: Yes Patient : Yes Physical Exam Vital Signs: Vital Signs: Last Vital Signs Temp 98 F 03/04/25 02:10 Pulse 77 03/04/25 02:10 Resp 16 03/04/25 02:10 BP 109/67 03/04/25 02:10 Pulse Ox 98 03/04/25 02:10 O2 Del Method Room Air 03/04/25 02:10 BMI result Body Mass Index 28.3 Medications Administered Discontinued Medications Generic Name Dose Route Start Last Admin Trade Name Freq PRN Reason Stop Dose Admin Al Hydroxide/Mg Hydroxide 30 ml 03/04/25 00:02 03/04/25 00:10 Magnesium Hydrox/Alum Hydrox 30 Ml Oral.Susp PO 03/04/25 00:03 30 ml ONCE ONE Administration Famotidine 20 mg 03/03/25 19:35 03/03/25 19:42 Famotidine/Pf 20 Mg/2 Ml Vial IVPUSH 03/03/25 19:36 20 mg ONCE ONE Administration Sodium Chloride 1,000 mls @ 999 mls/hr 03/03/25 19:15 03/03/25 21:21 Ns IV 03/03/25 20:15 Infused .Q1H1M JESSE Infusion Sodium Chloride 1,000 mls @ 999 mls/hr 03/03/25 19:15 03/03/25 21:43 Ns IV 03/03/25 20:15 Infused .Q1H1M JESSE Infusion Sodium Chloride 1,000 mls @ 999 mls/hr 03/04/25 00:15 03/04/25 01:26 Ns IV 03/04/25 01:15 Infused .Q1H1M JESSE Infusion Ondansetron HCl 4 mg 03/03/25 19:26 03/03/25 19:32 Ondansetron Hcl 4 Mg/2 Ml Vial IVPUSH 03/03/25 19:27 4 mg ONCE ONE Administration Medical Decision Making Medical Decision Making MDM Narrative: Patient given multiple L of IV fluids. Risk and benefit of Lab Data 03/03/25 15:33 03/03/25 15:33 Labs: Lab Results 03/03/25 03/03/25 Range/Units 15:33 15:37 WBC 9.0 (4.8-10.8) X10*3/uL RBC 4.72 (4.20-5.50) X10*6/uL Hgb 12.6 (12.0-16.0) g/dl Hct 36.5 L (37.0-47.0) % MCV 77.3 L (80.0-98.0) fL MCH 26.7 L (27.0-33.0) pg MCHC 34.5 (31.0-35.0) g/dl RDW 13.7 (11.0-16.0) % Plt Count 253 (160-400) X10*3/uL MPV 10.6 (9.4-12.3) fL Immature Gran % (Auto) 0.3 (0.0-0.4) % Neut % (Auto) 72.2 (45-73) % Lymph % (Auto) 23.0 (20-40) % Carver % (Auto) 4.0 (2-11) % Eos % (Auto) 0.2 (0-4) % Baso % (Auto) 0.3 (0-2) % Lymph # (Auto) 2.1 (1.2-4.9) X10*3/uL Carver # (Auto) 0.4 (0.1-1.2) X10*3/uL Eos # (Auto) 0.0 (0.0-0.4) X10*3/uL Baso # (Auto) 0.0 (0.0-0.2) X10*3/uL Abs Immat Gran (auto) 0.03 (0.00-0.03) X10*3/uL Absolute Neuts (auto) 6.5 (2.0-8.3) x10*3/uL Absolute Nucleated RBC 0.000 (0.0-0.012) X10*3/uL Nucleated RBC % (auto) 0.0 (0.0-0.2) /100WBC Sodium 137 (135-145) mmol/L Potassium 3.4 (3.3-5.1) mmol/L Chloride 103 (96-108) mmol/L Carbon Dioxide 23 (22-29) mmol/L Anion Gap 14 (12-20) BUN 8 L (9-16) mg/dL Creatinine 0.57 (0.5-1.4) mg/dL Estim Creat Clear Calc 152.2 Estimated GFR > 60 Random Glucose 89 (60-115) mg/dL Calcium 9.3 (8.4-10.2) mg/dL Magnesium 2.2 (1.6-2.6) mg/dL Total Bilirubin 0.5 (0.0-1.0) mg/dL AST 15 (5-31) U/L ALT 11 (0-31) U/L Alkaline Phosphatase 83 (39-117) U/L Total Protein 7.6 (6.5-8.0) g/dL Albumin 4.4 (3.5-5.0) g/dL Lipase 12 (8-78) U/L Beta HCG, Quant 207551 mIU/mL Urine Color Dark Yellow Urine Appearance Clear Urine pH 8.5 (5.0-9.0) Ur Specific [place] 1.025 (1.005-1.025) Urine Protein 100 (2+) H (Neg-Trace) mg/dL Urine Glucose (UA) Negative (Negative) mg/dL Urine Ketones 40 (Negative) mg/dL Urine Blood Negative (Negative) Urine Nitrite Negative (Negative) Ur Leukocyte Esterase Small (1+) H (Negative) Urine RBC 0-2 (0-2) /HPF Urine WBC 0-5 (0-5) /HPF Ur Squamous Epith Cells 11-20 (0-2) /HPF Urine Bacteria 1+ (None Seen) Hyaline Casts 0-2 (0-2) /LPF Discharge Plan Discharge Clinical Impression: Hyperemesis arising during Patient Disposition: Home, Self-Care Instructions: Hyperemesis Gravidarum (ED) Prescriptions: No Action azithromycin 500 mg tablet 1,000 mg PO DAILY 1 Days Qty: 2 0RF Rx Instructions: Take 2 tabs at one time. metronidazole [Flagyl] 500 mg tablet 500 mg PO BID 7 Days Qty: 14 0RF pyridoxine (vitamin B6) 25 mg tablet 25 mg PO BID Qty: 60 2RF Unisom (doxylamine) 25 mg tablet 25 mg PO DAILY Qty: 30 2RF metoclopramide HCl [Reglan] 10 mg tablet 10 mg PO Q6H PRN (Reason: nausea and vomiting) Qty: 30 0RF cephalexin 500 mg capsule 500 mg PO TID 7 Days Qty: 21 0RF ondansetron HCl 4 mg tablet 4 mg PO Q8H PRN (Reason: nausea and vomiting) Qty: 12 0RF promethazine 12.5 mg suppository 12.5 mg AR Q6H PRN (Reason: nausea and vomiting) Qty: 12 0RF pyridoxine (vitamin B6) 25 mg tablet 25 mg PO BID 30 Days Qty: 60 1RF fluconazole 150 mg tablet 150 mg PO Q3D Qty: 2 0RF Plus 29 mg iron- 1 mg tablet 1 tab PO DAILY Qty: 30 3RF fluconazole 150 mg tablet 150 mg PO ONCE Qty: 1 0RF Rx Instructions: Take after your last dose of fluconazole metronidazole 500 mg tablet 500 mg PO BID Qty: 10 0RF Referrals: Alec Hardy MD [Physician, TRACK PRODUCTION ENGINEER] - 03/06/25 Interventions: ED Discharge Assessment Last Done: 03/04/25 02:10 Discharge Date/Time: 03/04/25 02:12 Print Language: Prydeinig
--- NOTE | 2025-03-03 20:53 | PC.NURSE ---
pt fluids running, pt given small cup of water to drink. tolerated well.
[2025-03-03 23:06] VITALS: BP 100/54; PULSE 69; RESP 16; O2SAT 95
[2025-03-04] MEDS: Magnesium Hydrox/Alum Hydrox 30 ML ORAL.SUSP PO (00:10)
--- NOTE | 2025-03-04 00:14 | PC.NURSE ---
pt states she is nauseous, provide ordered Maalox and fluids. Pt not being d/c at this time.
[2025-03-04 02:10] VITALS: BP 109/67; PULSE 77; RESP 16; TEMP 36.6; O2SAT 98
== END 2025-03-04 02:12 | disposition home or self-care (01) ==
PROVIDERS: Physician Assistant; Emergency Provider Emergency Medicine Emergency Medical Services; PCP Student in an Organized Health Care Education/Training Program
DX: O21.0 Mild hyperemesis gravidarum (principal); Z3A.10 10 weeks gestation of pregnancy; R10.13 Epigastric pain; R10.2 Pelvic and perineal pain; Z79.899 Other long term (current) drug therapy
CPT/HCPCS: 36415; 80053; 81001; 83690; 83735; 84702; 85025; 87086; 96361; 96374; 96375; 99284; J1308; J2405